=== PATIENT | male | born 1945 | race Caucasian/White ===

== ENCOUNTER → 2023-12-19 14:57 | Outpatient (REF) | payer OTHER, SELFPAY ==
[2023-12-19 16:29] LABS: % Basophils 0.7 % (0-2); % Eosinophils 1.8 % (0-6); % Immature Granulocytes 0.2 % (0-0.5); % Lymphocytes 14.7 % (20.5-51.1); % Monocytes 7.3 % (1.7-9.3); % Neutrophils 75.3 % (42.2-75.2); Absolute Basophils 0.1 10^3/uL (0-0.2); Absolute Eosinophils 0.2 10^3/uL (0-0.7); Absolute Lymphocytes 1.2 10^3/uL (1.2-3.4); Absolute Monocytes 0.6 10^3/uL (0.1-0.6); Absolute Neutrophils 6.3 10^3/uL (1.4-6.5); Hematocrit 45.4 % (39.0-52.0); Hemoglobin 14.9 g/dL (13.0-18.0); Mean Corp Hgb Conc. 32.8 g/dL (33.0-37.0); Mean Corpuscular Hgb 29.9 pg (27.0-31.0); Mean Platelet Volume 10.4 fL (7.4-10.4); Nucleated Red Blood Cells % 0 % (-); Platelet Count 267 10^3/uL (130-400); Red Blood Cell Count 4.99 10^6/uL (4.70-6.10); Red Cell Dist. Width 13.7 % (11.5-14.5); White Blood Cell Count 8.3 10^3/uL (4.8-10.8)
[2023-12-19 16:45] LABS: Blood Urea Nitrogen 20 mg/dl (9-20); Calcium 9.4 mg/dl (8.4-10.2); Carbon Dioxide 26 mmol/L (22-30); Chloride 105 mmol/L (98-107); Glucose 90 mg/dl (70-99); Potassium 4.7 mmol/L (3.5-5.1); Sodium 136 mmol/L (135-145); eGFR > 60.00
[2023-12-19 16:49] LABS: NT-proBNP 2400 pg/ml
== END ==
LOC: REG 14:57
PROVIDERS: ATTENDING PHYSICIAN Internal Medicine
DX: R06.02 Shortness of breath (principal)
CPT/HCPCS: 36415; 71046; 80048; 83880; 85025

== ENCOUNTER 2023-12-19 20:02 | Inpatient (IN) | payer OTHER, SELFPAY ==
[2023-12-19 17:41] VITALS: BP 191/105
--- NOTE | 2023-12-19 18:38 | ED.GENMED ---
History of Present Illness
General
Chief Complaint: Breathing Problem
Source: patient
Exam Limitations: none
Time Seen by Provider: 12/19/23 18:26
Travel History
Have you had any contact with someone who has COVID-19?: No
Do you have any symptoms of coronavirus? Fever > 100 degrees, chills, cough, shortness of breath, sore throat, loss of taste or smell, muscle aches, or headache?: No
History of Present Illness
History of Present Illness:
This is a 78 year old male that comes in with c/o SOB. States that he had had difficulty breathing when he lays down at night. State that this has been going on for the past couple of weeks. States that today he went to see the PCP and he had an ECG
and he sent him for a chest x-ray. States that he has no had a cough but he keeps clearing his throat. States that he was called and told to come to the ER as he had pleural effusion. States that he has been SOB but not to bad during the day.
States that his was here on The 01 of December and she . States that she had a bacterial infection. Patient also went to on Tuesday and he was told that they saw something in the left ear and his nose so he was place on Augmentin.
Denies any fever, chills, chest pain, abd pain, nausea, vomiting, diarrhea, headache, dizziness, urinary burning.
Past History
Past History
ED Past Medical History: Negative Asthma, HTN, Hypercholesterolemia or NIDDM
ED Past Surgical History: None
Social History
Tobacco: Former smoker
Alcohol: Daily (Wine or Martini one daily)
Personal:
Living: alone
Review of Systems
Review of Systems
All Other Systems: ROS reviewed and negative except as documented in HPI and ROS
Constitutional: Reports no symptoms; Denies fever or chills
EENT: Reports no symptoms
Respiratory: Reports trouble breathing; Denies cough
Cardiac: Reports no symptoms; Denies chest pain
ABD/GI: Reports no symptoms; Denies abdominal pain, nausea, vomiting or diarrhea
: Reports no symptoms; Denies dysuria, frequency or urgency
Musculoskeletal: Reports no symptoms
Skin: Reports no symptoms
Neurological: Denies dizzy or headache
Psychiatric: Reports no symptoms
Phy Exam
General Physical Exam
General Presentation: no apparent distress
General age: appears stated age
General Skin: warm and dry
General Habitus: elderly
General Mental: alert
General Hydration: appears well hydrated
ENT Exam
ENT Exam: TM's normal, pharynx normal and neck supple
Eye Exam
Eye Exam: EOMI
Cardiovascular Exam
Cardiovascular Exam: regular rate/rhythm, no edema and normal peripheral pulses
Pulmonary Exam
Pulmonary Exam: no respiratory distress, no rales, chest non tender, no crackles, no rhonchi, no wheezing, no cough and decreased breath sounds (Left lower lung)
Gastrointestinal Exam
Gastrointestinal Exam: normal bowel sounds, non tender, soft, no organomegaly, no pulsatile mass and non distended
Musculoskeletal Exam
Musculoskeletal Exam: full ROM and edema (Left leg slightly larger then right)
Skin Exam
Skin Exam: normal color, warm/dry, no rash, no petechia and other (Old contusion noted on the medial aspect of the left thigh)
Psychiatric Exam
Psychiatric Exam: normal mood/affect
Scores
Heart Failure Risk
Heart Failure Risk Score: Yes
History of Stroke or TIA: No
History of intubation for respiratory distress: No
Heart rate on ED arrival >/= 110: No
SaO2 <90% on arrival on room air: No
HR >/=110 during 3min walk test (or too ill to perform test): Yes
ECG has acute ischemic changes: No
Urea >/=12mmol/L (BUN 33.6mg/dL): No
Serum CO2>/=35mmol/L: No
Troponin I or T elevated to OK Level (0.4mg/dL): Yes
NT-proBNP >/=5,000ng/L (5,000pg/ml): No
HF Risk Score: 4
Admission Status: HIGH RISK 26.1% Consider SNF treatment or admission to hospital
Course
Orders/Labs/Results
Orders:
Orders
12/19/23 Breakfast
Cholesterol Lowering
At Your Request: Full Participation
Cholesterol Lowering: Sodium, 2 Gram
12/19/23 17:46
Electrocardiogram (*1) Urgent
Reason for Study: Shortness of Breath
EKG- Treatment ONCE
12/19/23 18:39
US Periph Venous LOWER Ext LT Urgent
Comment:
Reason For Exam: Swelling
12/19/23 18:47
Complete Blood Count/With Diff Urgent
Comprehensive Metabolic Panel Urgent
Prothrombin Time Urgent
12/19/23 19:38
Furosemide [Lasix] 20 mg IV NOW STA
12/19/23 19:46
Admit/Transfer Patient As Directed
Co-Sign Provider:
Level of Care: Inpatient admission
Assign to:: Telemetry
Physician / Group: [email or web address]
Diagnosis: dyspnes, b/l pleural effusion, suspect acute HF unknown type, HTN
Reason for Telemetry: Acute Heart Failure
Date to Stop Telemetry: 12/22/23
Time to Stop Telemetry: 11:00
Reason for Hospitalization: dyspnes, b/l pleural effusion, suspect acute HF unknown type, HTN
Expected length of stay greater than two midnights?: Yes
ELOS- Estimated Length of Stay in days: 3
I certify the patient meets the requirements for IP care: Yes
12/19/23 19:47
Code Status As Directed
Resuscitation Status: Full Code
12/19/23 19:52
COVID-19 Antigen Routine
Source: Nasal Swab
Procalcitonin Routine
PCT Algorithmm Indication: Respiratory
Troponin I Urgent
12/19/23 22:40
HydrALAZINE [Apresoline] 10 mg IV Q4HPRN PRN
12/19/23 22:40
HF DIETARY CONSULT Routine
HF EDUCATOR CONSULT Routine
Comment:
Activity As Directed
Activity Level: With Assistance
Intake/ Output As Directed
Frequency: Per unit guidelines
Patient Education As Directed
Type: CHF folder
Comment: give on admission. Document in Interdisciplinary Education record
Sleep Apnea Assessment by RN As Directed
Comment:
Physician Instructions:
Vital Signs As Directed
Frequency: Other
Additional Instructions:: Q12 or per unit guidelines if more frequent.
Weight As Directed
Frequency: Daily
Type of Scale: Standing Scale
Comment: Daily morning weight. If unable to stand, use balanced bed scale.
Weight As Directed
Frequency: Once
Type of Scale: Standing Scale
Comment: Upon Admission. If unable to stand, use balanced bed scale.
Pulse Ox/cont/shift [RESP] Routine
Quantity: 1
Special Instructions: Daily pulse oximetry at rest. If greater than 92% at rest also obtain pulse oximetry
while ambulating as tolerated.
DX Deep Vein Thrombosis Video Routine
12/19/23 22:57
Troponin I Q6H
Comment: at admission & every 6 hours x 2 (3 total), ECG to be done with each level
12/20/23 04:40
Troponin I Q6H
Comment: at admission & every 6 hours x 2 (3 total), ECG to be done with each level
12/20/23 06:00
Echo 2D MMode Color/Doppler IN AM
Reason for Study: clinical acute HF
Basic Metabolic Panel IN AM
Cardiovascular Evaluation IN AM
Complete Blood Count/No Diff IN AM
TSH Reflex To Free T4 IN AM
12/20/23 08:00
Furosemide [Lasix] 20 mg IV DAILY
12/20/23 10:40
Troponin I Q6H
Comment: at admission & every 6 hours x 2 (3 total), ECG to be done with each level
12/20/23 18:00
Enoxaparin Sodium [Lovenox] 40 mg SC QPM
12/21/23 06:00
Basic Metabolic Panel IN AM
12/22/23 06:00
Basic Metabolic Panel IN AM
12/22/23 11:00
DC Protocol for Telemetry ONCE
Abnormal Lab Results
12/19/23 12/19/23
18:47 19:52
Absolute Neuts (auto) 7.0 H 10^3/uL
(1.4-6.5)
Lymphocytes % 16.1 L %
(20.5-51.1)
Glucose 101 H mg/dl
(70-99)
Troponin I 0.121 H* ng/ml
12/19/23 18:47
12/19/23 18:47
Glucose nonfasting. PT 14.0 with INR 1.10, Troponin 0.121, Pro-BNP 2400
Vital Signs
Initial and Last Documented VS:
Initial Vital Signs
Temp Pulse Resp BP Pulse Ox
98.1 F 104 20 191/105 97
12/19/23 17:41 12/19/23 17:41 12/19/23 17:41 12/19/23 17:41 12/19/23 17:41
Last Documented Vital Signs
Temp Pulse Resp BP Pulse Ox
97.4 F 94 20 157/94 97
12/19/23 23:45 12/19/23 23:45 12/19/23 23:45 12/19/23 23:45 12/19/23 23:45
MDM/Problems Addressed
Differential Diagnosis Includes:
Pleural efffusion
MDM/Problems Addressed:
This is a 78 year old male that comes in with c/o SOB. States that he had SOB when he lays down at night so his PCP did a Chest X-ray today. Patient was called and told to come to the ER as he had a pleural effusion.
Will get labs, Chest X-ray and admit.
Back into see patient. Explained that he will be admitted. Patient has a Moderate size pleural effusion on the left and right base. Patient is tachycardic. Hospitalist notified.
Chronic conditions affecting care:
NA
Acute Exacerbation and/or Progression of Chronic Illness:
NA
*Radiology
Radiology exam reviewed: radiology read reviewed (Out patient chest- Moderate left pleural effusion. minimal right pleural effusion us= NO SONOGRAPHIC EVIDENCE FOR LEFT LOWER EXTREMITY DEEP VENOUS THROMBOSIS. )
*Critical Care Note
Total Time (30-74mins, 75-104mins- exclusive of procedures): Not Applicable
ED Attending Note
-
Portions of this chart may have been created with voice recognition software.� Occasional wrong word or��sound alike� substitutions may have occurred due to the inherent limitations of voice recognition software.
Discharge Plan
Departure
Patient Disposition: Admit
Date of Disposition: 12/19/23
Time of Disposition: 21:24
Admit to: Telemetry
Presentation/result/management discussed w/ accepting MD/DO: Hospitalist
Patient with high blood pressure during this ER visit?: Yes
Condition: Good
Covid-19: Negative COVID-19
Discharge Problem:
Bilateral pleural effusion, Elevated troponin
Interventions
Interventions:
*Risk Screen - Suicide Last Done: 12/19/23 17:44
*General Assessment Last Done: 12/19/23 17:44
*Neglect/Abuse Screening Last Done: 12/19/23 17:44
ED- Fall Risk Assessment Last Done: 12/19/23 19:47
*ED COVID-19 Vaccine History Last Done: 12/19/23 19:47
*Nursing Disposition Last Done: 12/19/23 22:59
ED- Cardiac Assessment Last Done: 12/19/23 19:47
ED- Pulmonary Assessment Last Done: 12/19/23 19:47
Discharge Date and Time
Discharge Date/Time: 12/19/23 23:00
[2023-12-19 19:29] LABS: % Basophils 0.4 % (0-2); % Eosinophils 2.2 % (0-6); % Immature Granulocytes 0.3 % (0-0.5); % Lymphocytes 16.1 % (20.5-51.1); % Monocytes 6.7 % (1.7-9.3); % Neutrophils 74.3 % (42.2-75.2); Absolute Eosinophils 0.2 10^3/uL (0-0.7); Absolute Lymphocytes 1.5 10^3/uL (1.2-3.4); Absolute Monocytes 0.6 10^3/uL (0.1-0.6); Hematocrit 42.8 % (39.0-52.0); Hemoglobin 14.6 g/dL (13.0-18.0); Mean Corp Hgb Conc. 34.1 g/dL (33.0-37.0); Mean Corpuscular Volume 88.1 fL (80.0-94.0); Nucleated Red Blood Cells % 0 % (-); Platelet Count 265 10^3/uL (130-400); Red Blood Cell Count 4.86 10^6/uL (4.70-6.10); Red Cell Dist. Width 13.5 % (11.5-14.5); White Blood Cell Count 9.4 10^3/uL (4.8-10.8)
[2023-12-19 19:39] LABS: ALT (SGPT) 32 U/L (0-50); AST (SGOT) 32 U/L (17-59); Albumin 4.6 g/dl (3.5-5.0); Alkaline Phosphatase 74 U/L (38-126); Blood Urea Nitrogen 20 mg/dl (9-20); Calcium 9.8 mg/dl (8.4-10.2); Carbon Dioxide 25 mmol/L (22-30); Chloride 102 mmol/L (98-107); Glucose 101 mg/dl (70-99); Potassium 4.2 mmol/L (3.5-5.1); Sodium 138 mmol/L (135-145); Total Protein 7.4 g/dl (6.3-8.2); eGFR > 60.00
--- NOTE | 2023-12-19 19:40 | HPS.HSE ---
Family Physician
-
Family Physician: Dina Spears PA-C
Chief Complaint
-
sob
History of Present Illness
78M No prior PMH, daily a glass of Martini ETOH use, remote HX smoking pw SoB especially at night when he lies onhis side as the way he usally sleep for last few weeks. Denied cough. Recent PNA. Dened recent Travel. Denied B/L Ted swelling but
reports had Lt Ted strain and slight swelling. No prio HX DVT or PE.
Eval at [facility] on last Tuesday ?? ear infection and took 2 doses of Augmentin and stopped
PCP ordered CXR and noted b/l pleural effusion -sent ER
Today NEG home Covid test
Denied Wt loss
Denied loss appetite
ROS
Denied cough
Denies any fever, chills, chest pain, abd pain, nausea, vomiting, diarrhea, headache, dizziness, urinary burning.
Medical History
Past Medical History
Past Medical History: Reports Other (BPH on Fenesteride )
Past Surgical History: Reports None
Social History
Tobacco: Former Smoker (50 yrs ago )
Alcohol: Daily (a aglass of Martini )
Family History
Family History: Not pertinent
Allergies / Home Medications
Allergies reflects when Allergies were last updated in [facility].
Home Medications with original date entered in [facility]
Allergy/Medication List:
Allergies
Allergy/AdvReac Type Severity Reaction Status Date / Time
No Known Allergies Allergy Unverified 12/19/23 17:41
If medication reconciliation has not been performed, why?: Other (Pending Rx reconcilliation )
Review of Systems
-
Constitutional: Reports No Symptoms
EENT: Reports No Symptoms
Respiratory: Reports Trouble Breathing
Cardiac: Reports No Symptoms
Abdomen/GI: Reports No Symptoms
: Reports No Symptoms
Musculoskeletal: Reports No Symptoms
Skin: Reports No Symptoms
Neurological: Reports No Symptoms
Endocrine: Reports No Symptoms
Hematologic/Lymphatic: Reports No Symptoms
Psych: Reports No Symptoms
Physical Exam
Vital Signs
Vital Signs
Temp Pulse Resp BP Pulse Ox
98.1 F 104 20 191/105 97
12/19/23 17:41 12/19/23 17:41 12/19/23 17:41 12/19/23 17:41 12/19/23 17:41
Physical Exam
General: Well Developed, Well Nourished, Comfortable and Conversant
HEENT: NormoCephalic and Moist mucous membranes
Cardiac: S1/S2, Regular Rhythm and Murmur (soft SM at LUSB )
Breast: Deferred by me
GI: Soft, Non Tender and Non Distended
Rectal: Deferred by Provider
Genito-urinary: Deferred by me
Musculoskeletal: Edema, Left Lower Extremity (trace edema Lt >Rt )
Skin: Warm; No Rash
Neuro: AO x 3, Nonfocal/grossly intact and Other (Resting tremors at Rt UEx )
Laboratory Results
-
12/19/23 18:47
12/19/23 18:47
Laboratory Results
Total Bilirubin 1.0 mg/dl (0.2-1.3) 12/19/23 18:47
AST 32 U/L (17-59) 12/19/23 18:47
ALT 32 U/L (0-50) 12/19/23 18:47
Alkaline Phosphatase 74 U/L (38-126) 12/19/23 18:47
Impression/Plan
-
Data
WCC 8.3 Hgb 14.3 Plt 267
Na 136 K 4.7 CO2 26 Cr 0.9 eGFR > 60
Pending LFTs
pBNP 2400
TED US pending
12/19/23 OP CXR
Moderate left pleural effusion.
Minimal right pleural effusion
EKG report
SINUS TACHYCARDIA
RIGHT BUNDLE BRANCH BLOCK
SEPTAL INFARCT , AGE UNDETERMINED
ABNORMAL ECG
NO PREVIOUS ECGS AVAILABLE
Last hospitalist admission: NIL. No prior admission to
ASSESSMENT & PLAN
Evaluating in progress for acute HF type unknown - ? LV systolic dysfunction ? NI CM
SoB and orthopnea for 3-4 weeks
CXR POS for pleural effusion ( Mod on Lt, minimal on Rt) - suspect symtomatic - uncertaion etiolgy
NEG Covid by home test today
- check Covid Ag at ER
- nl WCC
- check PCT
- check TPNI
- IV Lasix 20 daily
- ECHO
- CBC Card consult
Systolic HTN noted - undiagnosed primary HTN vs. Anxiety
- add IV Hydralazine PRN
- Observe BP
Daily ETOH use
- MSAS
Lt Leg pain and slight swelling
- await Leg US to eval DVT
BPH on Finasteride
Resting tremors at Rt UEx
- to consider OP neuro eval for PKDs?
DVT Px: LMWH
Code: Full
IP TLM
[2023-12-19 19:48] VITALS: BP 174/79
[2023-12-19] MEDS: LASIX 20 MG IV (20:31)
[2023-12-19 20:48] VITALS: BP 127/68
[2023-12-19 20:59] LABS: COVID-19 Antigen Negative (Negative)
[2023-12-19 21:13] LABS: Troponin I 0.121 ng/ml
[2023-12-19 21:15] LABS: Procalcitonin < 0.05 ng/ml (0.0-0.25)
[2023-12-19 21:48] VITALS: BP 126/72
[2023-12-19 23:15] LABS: GGTP 31 U/L (15-73)
[2023-12-19] MEDS: PROSCAR 5 MG PO (23:16)
[2023-12-19 23:45] VITALS: BP 157/94
[2023-12-20 00:44] VITALS: BMI 28.3
[2023-12-20 03:26] VITALS: BP 142/86
[2023-12-20 04:22] LABS: Hematocrit 41.2 % (39.0-52.0); Hemoglobin 13.8 g/dL (13.0-18.0); Mean Corp Hgb Conc. 33.5 g/dL (33.0-37.0); Mean Corpuscular Hgb 30.2 pg (27.0-31.0); Mean Corpuscular Volume 90.2 fL (80.0-94.0); Mean Platelet Volume 9.9 fL (7.4-10.4); Platelet Count 254 10^3/uL (130-400); Red Blood Cell Count 4.57 10^6/uL (4.70-6.10); Red Cell Dist. Width 13.5 % (11.5-14.5); White Blood Cell Count 8.8 10^3/uL (4.8-10.8)
[2023-12-20 04:47] LABS: Blood Urea Nitrogen 23 mg/dl (9-20); Calcium 9.2 mg/dl (8.4-10.2); Carbon Dioxide 26 mmol/L (22-30); Chloride 103 mmol/L (98-107); Estimated Creatinine Clearance 56 ml/min; Glucose 113 mg/dl (70-99); HDL Cholesterol 58 mg/dl; LDL Cholesterol, Calculated 86 mg/dl; Potassium 3.9 mmol/L (3.5-5.1); Sodium 139 mmol/L (135-145); Total Cholesterol 167 mg/dl (50-199); Triglyceride 116 mg/dl (10-149); Very Low Density Lipoprotein 23 mg/dl (0-30); eGFR > 60.00
[2023-12-20 05:16] LABS: TSH Reflex To Free T4 3.51 uIU/ml (0.47-4.68)
[2023-12-20 05:37] LABS: Troponin I 0.167 ng/ml
[2023-12-20 06:00] VITALS: BMI 28.2
[2023-12-20 07:20] VITALS: BP 138/92
[2023-12-20] MEDS: THIAMINE INJECTION 200 MG IV ×2 (08:14→20:09)
[2023-12-20] MEDS: LASIX 20 MG IV ×2 (08:14→16:33)
[2023-12-20] MEDS: FOLVITE 1 MG PO (08:14)
--- NOTE | 2023-12-20 08:35 | W.PN.HOSP.TC ---
Today's Communication/Plan
-
see plan
Assessment / Plan
Assessment / Plan
Mr. Cornell Davis is a 78 yo man with hx BPH, daily alcohol use (1 Martini), former smoker presents to the ER with shortness of breath when lays down at night with outpatient chest x-ray showing pleural effusions.
CXR
IMPRESSION:
Moderate left pleural effusion
Minimal right pleural effusion
LE US
IMPRESSION:
No sonographic evidence for left lower extremity deep venous thrombosis.
Acute heart failure, unknown type
SoB and orthopnea for 3-4 weeks
CXR POS for pleural effusion ( Mod on Lt, minimal on Rt)
-symptoms coincide with sudden loss of ; Takotsubo on differential
- ordered for lasix 20mg IV BID
- TTE
- low salt diet, strict I/O
- TSH 3.51
- CBC Card consult appreciated
Troponin elevated, likely non-MA
-start aspirin
-trend Trop
Systolic HTN noted - undiagnosed primary HTN vs. Anxiety
- add IV Hydralazine PRN
- Observe BP
Daily ETOH use
- MSAS
Lt Leg pain and slight swelling
-no e/o DVT
BPH on Finasteride
Resting tremors at Rt UEx�
- to consider OP neuro eval for PKDs?
DVT Px: LMWH
Code: Full
IP TLM
Anticipated Discharge: 24 - 48 hours
Subjective/Interval History
-
Date of Service: December 20, 2023
breathing is better when laying down
no chest pain
urinating frequently
Objective Data
-
Labs:
Laboratory Results
12/20/23
04:08
WBC 8.8
Hgb 13.8
Hct 41.2
Plt Count 254
Sodium 139
Potassium 3.9
Chloride 103
Carbon Dioxide 26
BUN 23 H
Creatinine 0.9
Glucose 113 H
Calcium 9.2
Vital Signs:
Vital Signs
Temp Pulse Resp BP Pulse Ox
97.8 F 89 17 138/92 95
12/20/23 07:20 12/20/23 07:20 12/20/23 07:20 12/20/23 07:20 12/20/23 07:20
I&O
12/19/23 12/20/23 12/21/23
06:59 06:59 06:59
Output Total 300 / 300
Balance -300 / -300
Review of Systems
-
History Source: Patient
All other systems: Reviewed and negative
Physical Exam
-
General: No Apparent Distress
HEENT: PERRLA
Respiratory: Clear to Auscultation
Cardiac: S1/S2
GI: Soft and Nontender
Musculoskeletal: No Edema
Skin: Warm and Dry; Negative Rash
Neuro: AO x 3
Psych: Calm
Data Reviewed
-
Diagnostic Radiology: Report Reviewed by me
Labs: Labs Reviewed by me
--- NOTE | 2023-12-20 08:42 | CON.CAR ---
Addendum entered and electronically signed by Abdelrahman Garber MD 12/20/23 13:37:
I saw and examined the patient.
The FAMILY AND CONSUMER SCIENCES PROFESSOR's note was reviewed and I agree with the note.
Comment: His symptoms are c/w orthopnea. His echo shows mild , mod MR, no evidence of septal HI. PA pressure could not be estimated. pBNP c/w heart failure. CXR just a bit unusual with L>R effusion.
Suspect he has acute HFpEF, first presentation.
In addition to diuresis he will we add MRA (aldactone) and an SGLT inhibitior (Farxiga). Later can consider adding ARNI. Education also will be added with low Na+ diet and fluid restriction.
Case Management (appreciate their help): Jardiance/Farxiga/Entresto all $47/30 days retail or $94/90 days mail order.
Will need BMP in 1 and 3 weeks and monthly for 2-3 months and then q3 months.
A CXR in 2-3 weeks makes sense to make sure effusion resolves and confirm he does not need additional evaluation of that.
Original Note:
Consultation
Consultation Request
Date/Time Consultation Requested: 12/19/23 22:30
Date/Time Consultation Performed: 12/20/23 08:20
Requesting Provider: Dr. Simons
Performing Provider: MARGIE Tran for Dr. Garber
Reason for Consultation: New acute heart failure
Medical History
-
Chief Complaint: Shortness of breath
History of Present Illness:
Cornell Davis is a 78-year-old male recently with BPH and former smoker (cessation in his 20s) who presented to the emergency department with shortness of breath. His shortness of breath started approximately 2 weeks ago. It is most
noticeable when he lies down at bed at night. He thought this was because he could pay attention to it. He believes it was related to anxiety. On December 01 he came to the emergency department with his . Unfortunately, she was acutely ill and
did not survive. He thought his shortness of breath at night was related to anxiety regarding the loss of his . He is not having any chest pain. He denies associated dizziness, diaphoresis, and nausea. He was found to have an abnormal
troponin, elevated proBNP, and pleural effusions on his chest x-ray.
Past Medical History
Past Medical History: Other (RBBB, BPH)
Past Surgical History: Tonsilectomy
Social History
Tobacco: Former Smoker
Alcohol: Daily (1 martini daily)
Drug: None
Personal: (Sudden. Within the last month.)
Living: Alone
Employment: Retired
Family History
Family History: Reviewed & Not Pertinent
Allergies / Home Medications
Allergy/AdvReac Type Severity Reaction Status Date / Time
No Known Allergies Allergy Unverified 12/19/23 17:41
Medication Instructions Recorded Confirmed Type
amoxicillin 875 mg-potassium 1 tab PO Q12H 12/19/23 12/19/23 History
clavulanate 125 mg tablet
finasteride 5 mg tablet 5 mg PO QPM 12/19/23 12/19/23 History
iodine (kelp) 0.15 mg tablet (Kelp) 0.15 mcg PO BID 12/19/23 12/19/23 History
multivitamin 1 tab PO DAILY 12/19/23 12/19/23 History
omega 4-loc-xcv-fish oil 1,000 mg 1 cap PO BID 12/19/23 12/19/23 History
(120 mg-180 mg) capsule (Fish Oil)
saw palmetto 500 mg capsule 500 mg PO BID 12/19/23 12/19/23 History
vit C 250 mg-vit E 90 mg-zinc 40 1 tab PO BID 12/19/23 12/19/23 History
mg-copper 1 bd-arykyu-uxtjma
capsule (PreserVision AREDS-2)
Review of Systems
-
History Source: Patient
All other systems: Negative unless noted
EENT: No Symptoms
Respiratory: Trouble Breathing
Cardiac: Other (PND, orthopnea)
Abdomen/GI: No Symptoms
Physical Exam
Vital Signs
Temp Pulse Resp BP Pulse Ox
97.8 F 89 17 138/92 95
12/20/23 07:20 12/20/23 07:20 12/20/23 07:20 12/20/23 07:20 12/20/23 07:20
Lab Results
12/20/23 04:08
12/20/23 04:08
Troponin I 0.167 ng/ml H* D 12/20/23 04:08
Physical Exam
General: Well Developed, Well Nourished, No Apparent Distress and Comfortable
HEENT: Normocephalic, Anicteric and Moist Mucous Membranes
Respiratory: Clear and Non Labored Respirations
Cardiac: S1/S2 and Regular Rhythm; Negative Peripheral Edema
Breast: Deferred by me
GI: Soft, Non Tender, Non Distended and Normal Bowel Sounds
Rectal: Deferred by Provider
Genito-urinary: No Costovertebral Tender
Musculoskeletal: No Clubbing, No Cyanosis and No Edema
Skin: Warm and Dry
Neuro: AO x 3
Hematologic/Lymphatic: No Lymphadenopathy
Psych: Calm
Impression / Plan
-
Heart failure, type unknown, acute/severe (required hospitalization)
-PND and orthopnea on exam
-Diuresis with furosemide 20 mg IV BID
-Moderate left pleural effusion and minimal right pleural effusion
-TTE, concern for Takotsubo given the recent loss of his
-HF education
-Trend BMP, I/Os, and daily weight with diuresis
-Case Mgmt to fabian SGLT, will start if not cost prohibitive
-Anticipate starting MRA
Abnormal troponin
-Peak currently 0.167, trend
-Trend EKG
HTN, new
-Denies history of HTN
-Will likely start medical therapy after TTE
Former smoker, continued cessation recommended
BPH
Data Reviewed
-
EKG: Report Reviewed by me (Sinus tachycardia, right bundle branch block, rate 102)
Radiology: Report Reviewed by me (CXR: Moderate left pleural effusion. Minimal right pleural effusion)
Ultrasound: Report Reviewed by me (B/L LE: No sonographic evidence for left lower extremity deep venous thrombosis.)
Labs: Labs Reviewed by me
[2023-12-20] MEDS: LOW STRENGTH ASPIRIN 162 MG PO (10:40)
[2023-12-20] MEDS: KCL 20 MEQ PO (10:41)
[2023-12-20 11:30] VITALS: BP 134/82
[2023-12-20 11:42] LABS: Troponin I 0.117 ng/ml
--- NOTE | 2023-12-20 12:20 | CM ---
CM met with pt bedside
Pt recently earlier this month
Resides alone in a 1SH with 1 NINA
Notes independence without any ADs
Has a SPC and WW for use if needed
Denies hx with VN/SNF
PCP- Dina Spears
Rx- [facility]
CM consulted for D/A- pt notes daily cocktail
Declined [facility]
CM also consulted for med pricing
Call with [facility]
Jardiance/Farxiga/Entresto all $47/30 days retail or $94/90 days mail order
Update to Marcia/cardio TT
CM observed pt ambulatory and independent throughout room without AD
No dc needs anticipated
Discharge Disposition- home, no needs anticipated- dtr will transport home
[2023-12-20 15:35] VITALS: BP 139/94
[2023-12-20] MEDS: PROSCAR 5 MG PO (17:59)
[2023-12-20] MEDS: LOVENOX 40 MG SC (17:59)
[2023-12-20 19:35] VITALS: BP 135/75
[2023-12-20 23:50] VITALS: BP 133/81
[2023-12-21 03:55] VITALS: BP 119/76
[2023-12-21 06:00] VITALS: BMI 27.5
[2023-12-21 06:15] LABS: Blood Urea Nitrogen 24 mg/dl (9-20); Calcium 9.4 mg/dl (8.4-10.2); Carbon Dioxide 25 mmol/L (22-30); Chloride 102 mmol/L (98-107); Estimated Creatinine Clearance 56 ml/min; Glucose 111 mg/dl (70-99); Potassium 3.9 mmol/L (3.5-5.1); Sodium 138 mmol/L (135-145); eGFR > 60.00
[2023-12-21 07:00] VITALS: BP 134/85
[2023-12-21] MEDS: FARXIGA 10 MG PO (08:35)
[2023-12-21] MEDS: FOLVITE 1 MG PO (08:36)
[2023-12-21] MEDS: LASIX 20 MG IV (08:36)
[2023-12-21] MEDS: ALDACTONE 12.5 MG PO (08:36)
[2023-12-21] MEDS: THIAMINE INJECTION 200 MG IV (08:36)
--- NOTE | 2023-12-21 09:22 | W.PN.CD ---
Today's Communication / Plan
-
OK for home from cardiac perspective
Home on Lasix 20 a day, Farxiga 10 a day, Aldactone 12.5 a day
Later can consider adding ARNI (for HF and HTN)
Will need BMP in 1 and 3 weeks and monthly for 2-3 months and then q3 months
F/u CXR in 2-4 weeks
Can consider outpatient stress test
Impression / Plan
-
Heart failure, acute HFpEF
- Improved
- Home on Lasix 20 a day, Farxiga 10 a day, Aldactone 12.5 a day
- Later can consider adding ARNI.
- Education, low Na+ diet, and fluid restriction.�
- Will need BMP in 1 and 3 weeks and monthly for 2-3 months and then q3 months.
Valvular heart disease
- mild
- mod MR, no evidence of septal KS.�
- PA pressure could not be estimated.
CXR just a bit unusual with L>R effusion.
- F/u CXR in 2-4 weeks
Abnormal troponin
-Peak 0.167
- EKG stable
- Most c/w nonischemic myocardial injury from heart failure
- Can consider outpatient stress test
HTN, new
-Will see on Aldactone and Lasix
-Good candidate to add ARNI or ARB next as outpatient
Former smoker, continued cessation recommended
BPH
Case Management Assistance:
- Jardiance/Farxiga/Entresto all $47/30 days retail or $94/90 days mail order
Subjective:
No PND last night!!
Physical Exam
Vital Signs/Labs
Vital Signs
Temp Pulse Resp BP Pulse Ox
97.5 F 79 16 134/85 94
12/21/23 07:00 12/21/23 07:00 12/21/23 07:00 12/21/23 07:00 12/21/23 07:00
12/20/23 12/21/23 12/22/23
06:59 06:59 06:59
Actual Weight 74.559 kg 72.529 kg
12/20/23 04:08
12/21/23 05:14
PT 14.0 Sec (11.4-14.6) 12/19/23 18:47
INR 1.10 12/19/23 18:47
Triglycerides 116 mg/dl (10-149) 12/20/23 04:08
LDL Cholesterol, Calc 86 mg/dl 12/20/23 04:08
VLDL Cholesterol, Calc 23 mg/dl (0-30) 12/20/23 04:08
HDL Cholesterol 58 mg/dl 12/20/23 04:08
LAB Results
12/19/23 12/19/23 12/20/23
19:52 22:57 04:08
Troponin I 0.121 H* 0.130 H* 0.167 H* D
12/20/23
11:08
Troponin I 0.117 H* D
Physical Exam
Constitutional: No acute distress
EENT: Anicteric
Cardiovascular: Rhythm & rate is regular, Pedal edema is absent and Rub absent
Respiratory: Respiratory effort normal and Lungs clear to auscul. (still decreased at bases)
GI: Soft and Distention absent
Neuro/Psych: AO x 3
Data Reviewed
-
Date of Service: December 21, 2023
--- NOTE | 2023-12-21 10:04 | W.PN.HOSP.TC ---
Today's Communication/Plan
-
OK for DC today
Assessment / Plan
Assessment / Plan
Mr. Cornell Davis is a 78 yo man with hx BPH, daily alcohol use (1 Martini), former smoker presents to the ER with shortness of breath when lays down at night with outpatient chest x-ray showing pleural effusions.
CXR
IMPRESSION:
Moderate left pleural effusion
Minimal right pleural effusion
LE US
IMPRESSION:
No sonographic evidence for left lower extremity deep venous thrombosis.
TTE
CONCLUSIONS
�Normal biventricular size and systolic function without regional wall motion
�abnormality.
�Mild concentric left ventricular hypertrophy.
�Stage III diastolic dysfunction suggestive of restrictive filling pattern and
�increased filling pressures.
�Moderate mitral regurgitation.
�Mild aortic stenosis.
�Right heart pressures could not be determined.
�No prior study available for comparison.
Acute heart failure, unknown type
SoB and orthopnea for 3-4 weeks
CXR POS for pleural effusion ( Mod on Lt, minimal on Rt)
- s/p diuresis with improvement in symptoms, weight 72.5kg
- TTE results above - nl EF
- low salt diet, strict I/O
- TSH 3.51
- CBC Card consult appreciated
-OK for DC today on �Lasix 20 a day, Farxiga 10 a day, Aldactone 12.5 a day
Troponin elevated, likely non-IA
-consider outpatient stress test
Systolic HTN noted
-aldactone initiated as above
Daily ETOH use
- MSAS
Lt Leg pain and slight swelling
-no e/o DVT
BPH on Finasteride
Resting tremors at Rt UEx�
- to consider OP neuro eval for PKDs?
F/U with PCP
DVT Px: LMWH
Code: Full
IP TLM
Anticipated Discharge: Today
Subjective/Interval History
-
Date of Service: December 21, 2023
feels well and ready to go home
Objective Data
-
Labs:
Laboratory Results
12/21/23
05:14
Sodium 138
Potassium 3.9
Chloride 102
Carbon Dioxide 25
BUN 24 H
Creatinine 0.9
Glucose 111 H
Calcium 9.4
Vital Signs:
Vital Signs
Temp Pulse Resp BP Pulse Ox
97.5 F 79 16 134/85 94
12/21/23 07:00 12/21/23 07:00 12/21/23 07:00 12/21/23 07:00 12/21/23 07:00
I&O
12/20/23 12/21/23 12/22/23
06:59 06:59 06:59
Intake Total 1380 / 1380
Output Total 300 / 300 2900 / 2900
Balance -300 / -300 -1520 / -1520
Review of Systems
-
History Source: Patient
All other systems: Reviewed and negative
Physical Exam
-
General: No Apparent Distress
HEENT: PERRLA
Respiratory: Clear to Auscultation
Cardiac: S1/S2
GI: Soft and Nontender
Musculoskeletal: No Edema
Skin: Warm and Dry; Negative Rash
Neuro: AO x 3
Psych: Calm
Data Reviewed
-
Diagnostic Radiology: Report Reviewed by me
Labs: Labs Reviewed by me
--- NOTE | 2023-12-21 10:17 | W.DS.TRANS ---
DC Summary - [employer]
-
Discharge Instructions:
Discharge Diagnosis/Procedures heart failure preserved ejection fraction
Diet 2 Gram Sodium,Restrict fluids to 48 oz
Activity As tolerated
Driving Restrictions As prior to admission
Bathing Restrictions None
Blood Work BMP (bloodwork) in 1 and 3 weeks- lab slip sent
electronically sent to [facility] as discussed
Specialty Instructions Weigh Daily
Instructions: *CBC Heart Failure Instructions
Stand-Alone Forms:
Changes to Home Medications: Yes
Discharge Medications:
DC Medications w/original date entered in [employer]
finasteride 5 mg tablet 5 mg PO QPM Urinary Issue 12/19/23
iodine (kelp) 0.15 mg tablet (Kelp) 0.15 mcg PO BID Supplement 12/19/23
multivitamin 1 tab PO DAILY Supplement 12/19/23
omega 5-cmx-hft-fish oil 1,000 mg (120 mg-180 mg) capsule (Fish Oil) 1 cap PO BID Supplement 12/19/23
saw palmetto 500 mg capsule 500 mg PO BID Supplement 12/19/23
vit C 250 mg-vit E 90 mg-zinc 40 mg-copper 1 mm-hgbpry-czboej capsule (PreserVision AREDS-2) 1 tab PO BID Supplement 12/19/23
dapagliflozin propanediol 10 mg tablet (Farxiga) 10 mg PO DAILY #30 tabs 12/21/23
furosemide 20 mg tablet (Lasix) 20 mg PO DAILY #30 tabs 12/21/23
spironolactone 25 mg tablet 12.5 mg PO DAILY #30 tabs 12/21/23
Home Medication Changes
addition of lasix, spironolactone, Farxiga
Pending Results: No
--- NOTE | 2023-12-21 10:45 | CM ---
MD entered order for discharge.
Spoke with patient he said he wqas ready for dc.
He said either dgt Kenyatta or G Charliet Marisol will drive royce home .
he has a walker at home.
Offered V he declined need.
PLAN Home no needs
[2023-12-21 11:00] VITALS: BP 126/76
[2023-12-21 11:17] VITALS: BMI 27.5
--- NOTE | 2023-12-21 13:55 | W.DCSUMMARY ---
Discharge Summary
Discharge Data
Date of Admission: 12/19/23
Date of Discharge: 12/21/23
-
Pending Results: No
Hospital Course
Discharging Physician : Dr. Katya Doss
Disposition : Home
Primary care physician : Dr. Dina Spears
Principal Discharge diagnosis : Heart failure preserved ejection fraction, acute exacerbation
Hospital Course :
Mr. Cornell Davis is a 78 yo man with hx BPH, daily alcohol use (1 Martini), former smoker presents to the ER with shortness of breath when lays down at night. His unexpectedly passed one month prior and symptoms began around this time.
Triage vitals significant for hypertension. Labs with WBC 9.4, Cr 0.9, K 4.2. CXR with moderate left pleural effusion and minimal right pleural effusion. Clinically patient appeared to be in heart failure. He was admitted to medicine with
cardiology consulting. Symptoms improved with diuresis. TTE with nl systolic function. He is started on lasix 20mg PO QD, Farxiga 10mg PO QD and Spironolactone 12.5mg PO QD. He will get labs in one week and has follow up with cardiology. Weight
on day of discharge was 72.5 kg.
Time spent on discharge was 31 minutes.
Important imaging findings :
CXR 12/19/23
IMPRESSION:
Moderate left pleural effusion
Minimal right pleural effusion
TTE 12/20/23
CONCLUSIONS
Normal biventricular size and systolic function without regional wall motion
abnormality.
Mild concentric left ventricular hypertrophy.
Stage III diastolic dysfunction suggestive of restrictive filling pattern and
increased filling pressures.
Moderate mitral regurgitation.
Mild aortic stenosis.
Right heart pressures could not be determined.
No prior study available for comparison.
Indications:
clinical acute HF
Procedure findings :
Discharge Plan
-
Patient Disposition: Home (Routine Discharge)
Discharge Diagnosis/Procedures: heart failure preserved ejection fraction
Diet: 2 Gram Sodium and Restrict fluids to 48 oz
Activity: As tolerated
Driving Restrictions: As prior to admission
Bathing Restrictions: None
Blood Work: BMP (bloodwork) in 1 and 3 weeks- lab slip sent electronically sent to [facility] as discussed
Specialty Instructions: Weigh Daily- Call MD for wt gain/loss 3 lbs overnight/5 lbs in 1 week
Instructions: *CBC Heart Failure Instructions
Referrals:
Simran Jalloh CRNP [Specified Professional Personl] - 12/23/23 11:20 am (post hospital CHF follow-up cardiology visit)
Dina Spears PA-C [Family Provider] -
Prescriptions:
New
spironolactone 25 mg Tablet
12.5 mg PO DAILY Qty: 30 0RF
dapagliflozin propanediol [Farxiga] 10 mg Tablet
10 mg PO DAILY Qty: 30 0RF
furosemide [Lasix] 20 mg tablet
20 mg PO DAILY Qty: 30 0RF
Continued
multivitamin Tablet
1 tab PO DAILY
Kelp 0.15 mg Tablet
0.15 mcg PO BID
saw palmetto 500 mg Capsule
500 mg PO BID
finasteride 5 mg tablet
5 mg PO QPM
omega 7-sdc-jil-fish oil [Fish Oil] 1,000 mg (120 mg-180 mg) Capsule
1 cap PO BID
PreserVision AREDS-2 250-90-40-1 mg Capsule
1 tab PO BID
Discontinued
amoxicillin-pot clavulanate 875-125 mg tablet
1 tab PO Q12H
Discharge Orders:
Discharge Patient (As Directed); Ordered 12/21/23
Ordered By: Katya Doss
Discharge Date and Time
Discharge Date/Time: 12/21/23 12:44
== END 2023-12-21 12:44 | disposition home or self-care (01) | DRG 291 ==
LOC: 3 WEST ACU 20:02
PROVIDERS: Clinical Nurse Specialist Family Health; ADMITTING PHYSICIAN Internal Medicine; ATTENDING PHYSICIAN Student in an Organized Health Care Education/Training Program; EMERGENCY PHYSICIAN Emergency Medicine; FAMILY PHYSICIAN Physician Assistant Medical; OTHER PHYSICIAN Internal Medicine Cardiovascular Disease; REFERRING PHYSICIAN Internal Medicine
DX: I11.0 Hypertensive heart disease with heart failure (principal); I50.31 Acute diastolic (congestive) heart failure; J90 Pleural effusion, not elsewhere classified; I5A Non-ischemic myocardial injury (non-traumatic); F10.90 Alcohol use, unspecified, uncomplicated; N40.0 Benign prostatic hyperplasia without lower urinary tract symptoms; M79.605 Pain in left leg; I08.0 Rheumatic disorders of both mitral and aortic valves; R25.1 Tremor, unspecified; I45.10 Unspecified right bundle-branch block; Z63.4 Disappearance and death of family member; Z87.891 Personal history of nicotine dependence; Z11.52 Encounter for screening for COVID-19
CPT/HCPCS: 80048; 80053; 80061; 82977; 84145; 84443; 84484; 85025; 85027; 85610; 87811; 93005; 93306; 93971; 99285

== ENCOUNTER → 2024-12-19 12:34 | Outpatient (REF) | payer OTHER, SELFPAY | LOC: RCS 12:34 | PROVIDERS: ATTENDING PHYSICIAN Internal Medicine Cardiovascular Disease; FAMILY PHYSICIAN Physician Assistant Medical | DX: I50.32 Chronic diastolic (congestive) heart failure (principal); I34.0 Nonrheumatic mitral (valve) insufficiency; I35.0 Nonrheumatic aortic (valve) stenosis | CPT/HCPCS: 93306 ==

== ENCOUNTER 2025-06-08 16:12 | Inpatient (IN) | payer OTHER, SELFPAY ==
[2025-06-08 12:53] VITALS: BP 128/74
[2025-06-08 13:14] LABS: Hematocrit 43.1 % (39.0-52.0); Hemoglobin 14.7 g/dL (13.0-18.0); Mean Corp Hgb Conc. 34.1 g/dL (33.0-37.0); Mean Corpuscular Volume 90.7 fL (80.0-94.0); Nucleated Red Blood Cells % 0 % (-); Platelet Count 237 10^3/uL (130-400); Red Cell Dist. Width 13.3 % (11.5-14.5)
[2025-06-08 13:27] LABS: ALT (SGPT) 44 U/L (0-50); AST (SGOT) 37 U/L (17-59); Albumin 4.5 g/dl (3.5-5.0); Alkaline Phosphatase 59 U/L (38-126); Blood Urea Nitrogen 22 mg/dl (9-20); Calcium 9.8 mg/dl (8.4-10.2); Carbon Dioxide 24 mmol/L (22-30); Chloride 106 mmol/L (98-107); Glucose 119 mg/dl (70-99); Potassium 4.7 mmol/L (3.5-5.1); Sodium 137 mmol/L (135-145); Total Protein 7.1 g/dl (6.3-8.2); eGFR > 60.00
[2025-06-08 13:47] LABS: Troponin I 0.132 ng/ml
--- NOTE | 2025-06-08 14:12 | ED.GENMED ---
History of Present Illness
General
Chief Complaint: Breathing Problem
Source: patient, records and family
Exam Limitations: none
Time Seen by Provider: 06/08/25 14:03
Nursing documentation reviewed up to this point in time: agreed with
History of Present Illness
History of Present Illness:
80-year-old male with a past medical history of BPH, aortic stenosis and mitral regurgitation, CHF who presents to the emergency department for evaluation of shortness of breath and orthopnea. Patient reports that for the past week or so he has
been having increased fatigue. He reports 1 to 2 pound weight gain and some increased swelling in his legs. He says that he called his beef skinner (Dr. Garber) to disclose the symptoms and was recommended to increase Lasix�his typical dose has
been 20 mg daily but was told to increase to 20 mg twice daily for a few days. Yesterday took his double dose of Lasix but over the past 24 hours has noticed shortness of breath increasing particularly when he tried to sleep last night was having
significant orthopnea which prompted ER visit today. He did have admission last year with similar presentation and orthopnea was primary symptom. He denies any chest pain. Denies any cough, fevers, chills. He denies any other acute complaints.
Past History
Past History
ED Past Medical History: Negative Asthma, HTN, Hypercholesterolemia or NIDDM
ED Past Surgical History: None
Social History
Tobacco: Former smoker
Alcohol: Daily (Wine or Martini one daily)
Personal:
Living: alone
Review of Systems
Review of Systems
All Other Systems: ROS reviewed and negative except as documented in HPI and ROS
Constitutional: Reports weight gain and fatigue; Denies fever
Respiratory: Reports trouble breathing and other (Orthopnea); Denies cough
Cardiac: Denies chest pain or palpitations
ABD/GI: Denies abdominal pain, nausea or vomiting
: Denies flank pain
Musculoskeletal: Reports edema; Denies neck pain or back pain
Neurological: Denies dizzy or headache
Phy Exam
Physical Exam
Physical Exam:
General: Awake, alert, oriented x3; no acute distress
Head: Normocephalic, atraumatic
Eyes: Conjunctiva normal, EOMI
Throat: Airway intact, handling secretions
Neck: Trachea midline, JVD noted
Lungs: He has no tachypnea or hypoxia, breath sounds are diminished at the lung bases bilaterally, otherwise lungs clear to auscultation bilaterally, no wheezing, rales, rhonchi appreciable
Heart: Regular rate and irregular rhythm, systolic murmur noted
Abd: Soft, non distended, nontender
Neuro: Grossly intact
Skin: Warm and dry
Extremities: Trace edema in the legs bilaterally; extremities are warm and well-perfused
Scores
Heart Failure Risk
Heart Failure Risk Score: Yes
History of Stroke or TIA: No
History of intubation for respiratory distress: No
Heart rate on ED arrival >/= 110: No
SaO2 <90% on arrival on room air: No
HR >/=110 during 3min walk test (or too ill to perform test): Yes
ECG has acute ischemic changes: No
Urea >/=12mmol/L (BUN 33.6mg/dL): No
Serum CO2>/=35mmol/L: No
Troponin I or T elevated to ME Level (0.4mg/dL): No
NT-proBNP >/=5,000ng/L (5,000pg/ml): No
HF Risk Score: 2
Admission Status: MEDIUM RISK 9.2% Consider observation or discharge to home with homecare & f/u visit to PCP/Contact Person, or SNF for treatment
Heart Score for Chest Pain Patients
STEMI patient?: Not applicable
Withdrawal Assessment of Alcohol
Withdrawal Assessment Completed?: Not applicable
Course
Orders/Labs/Results
Orders:
Orders
06/08/25 12:58
Electrocardiogram (*1) Urgent
Reason for Study: Chest Pain
EKG- Treatment ONCE
CR Chest - 2 Views Urgent
Comment:
Reason For Exam: respiratory distress
06/08/25 13:05
Complete Blood Count/With Diff Urgent
Comprehensive Metabolic Panel Urgent
NT-proBNP Urgent
Troponin I Urgent
06/08/25 14:11
Furosemide [Lasix] 40 mg IV NOW STA
06/08/25 14:21
Apixaban [Eliquis] 5 mg PO ONCE ONE
06/08/25 16:05
Troponin I Urgent
Abnormal Lab Results
06/08/25
13:05
Absolute Lymphs (auto) 1.0 L 10^3/uL
(1.2-3.4)
Neutrophils % 76.8 H %
(42.2-75.2)
Lymphocytes % 13.7 L %
(20.5-51.1)
BUN 22 H mg/dl
(9-20)
Glucose 119 H mg/dl
(70-99)
Troponin I 0.132 H* ng/ml
06/08/25 13:05
06/08/25 13:05
Vital Signs
Initial and Last Documented VS:
Initial Vital Signs
Temp Pulse Resp BP Pulse Ox
36.7 C 76 20 128/74 95
06/08/25 12:53 06/08/25 12:53 06/08/25 12:53 06/08/25 12:53 06/08/25 12:53
Last Documented Vital Signs
Temp Pulse Resp BP Pulse Ox
36.7 C 76 20 128/74 95
06/08/25 12:53 06/08/25 12:53 06/08/25 12:53 06/08/25 12:53 06/08/25 14:21
MDM/Problems Addressed
Differential Diagnosis Includes:
CHF, pneumonia, PE, bronchitis
MDM/Problems Addressed:
80-year-old male presents to the ER for evaluation of fatigue, weight gain, leg swelling and now increasing orthopnea despite increasing outpatient Lasix dose yesterday. Vital signs and exam as above overall clinical picture concerning for
congestive heart failure exacerbation. His EKG shows what appears to be new onset A-fib fortunately rate controlled which is likely trigger. He had labs sent off including a CBC and a CMP which showed no clinically significant abnormalities. His
proBNP is elevated to 4900 consistent with CHF. His troponin is slightly elevated to 0.132 likely in the setting of CHF�will continue to trend, no chest pain to suggest that this is ACS. Chest x-ray shows bilateral pleural effusions with pulmonary
vascular congestion. Will treat with IV Lasix, initiate Eliquis for new onset A-fib and admit for continued management. Discussed with hospitalist for admission.
Chronic conditions affecting care:
CHF
*Pulse Oximetry
SaO2: 95
Oxygen Mode of Delivery: Room air
Patient hypoxic: no (95%)
*EKG
Interpreted by ED Provider?: Yes
Heart Rate: 81
Rate: normal
Rhythm: a-fib
[place]: normal axis
Interval: normal interval
QRS Pattern: normal QRS
Ischemia: no ischemia
*Critical Care Note
Total Time (30-74mins, 75-104mins- exclusive of procedures): Not Applicable
Data Reviewed
Review of Other/Old Records Reveals: Labs and Records
Source: patient, records and family
ED Attending Note
-
Portions of this chart may have been created with voice recognition software.� Occasional wrong word or��sound alike� substitutions may have occurred due to the inherent limitations of voice recognition software.
Discharge Plan
Departure
Patient Disposition: Admit
Date of Disposition: 06/08/25
Time of Disposition: 14:21
Admit to doctor: Lili
Presentation/result/management discussed w/ accepting MD/DO: Hospitalist
Discharge Problem:
CHF (congestive heart failure), Elevated troponin, Atrial fibrillation
Prescriptions:
No Action
multivitamin Tablet
1 tab PO DAILY
Kelp 0.15 mg Tablet
0.15 mcg PO BID
saw palmetto 500 mg Capsule
500 mg PO BID
finasteride 5 mg tablet
5 mg PO QPM
omega 8-ojr-vaz-fish oil [Fish Oil] 1,000 mg (120 mg-180 mg) Capsule
1 cap PO BID
PreserVision AREDS-2 250-90-40-1 mg Capsule
1 tab PO BID
spironolactone 25 mg Tablet
12.5 mg PO DAILY Qty: 30 0RF
dapagliflozin propanediol [Farxiga] 10 mg Tablet
10 mg PO DAILY Qty: 30 0RF
furosemide [Lasix] 20 mg tablet
20 mg PO DAILY Qty: 30 0RF
Interventions
Interventions:
*Risk Screen - Suicide Last Done: 06/08/25 12:53
*Neglect/Abuse Screening Last Done: 06/08/25 12:53
*ED- Fall Risk Assessment Last Done: 06/08/25 12:53
Discharge Date and Time
Print Language: URDU
[2025-06-08 14:16] VITALS: BP 134/82
[2025-06-08] MEDS: LASIX 40 MG IV (14:41)
[2025-06-08] MEDS: ELIQUIS 5 MG PO ×2 (14:42→21:03)
--- NOTE | 2025-06-08 14:49 | HPS.HSE ---
Family Physician
-
Family Physician: Dina Spears PA-C
Chief Complaint
-
Shortness of breath
History of Present Illness
Patient is pleasant 80 years old with history of benign prostatic hyperplasia, aortic stenosis, mitral regurg, congestive heart failure who came to the ER with shortness of breath and orthopnea, associated with dyspnea exertion, which started for
the last week and he reached out to his slots manager Dr. Garber who advised to take extra Lasix, patient typically takes 20 mg of Lasix daily, yesterday he received 40 mg of Lasix, no improvement, patient also noticed weight gain, denies chest pain,
no fever or chills, no abdominal pain, no nausea or vomiting.
In the ER patient had a chest x-ray which shows:
1. MODERATE LEFT PLEURAL EFFUSION with adjacent compressive atelectasis of the left lower lobe.
2. Small right pleural effusion.
3. Mild cardiomegaly.
Patient BNP was elevated, received Lasix in the ER.
Patient also noted to have atrial fibrillation with controlled heart rate, started on Eliquis.
Patient will be admitted under hospitalist service, plan discussed with patient and his daughter at bedside.
Medical History
Past Medical History
Past Medical History: Reports CHF and Other (BPH on Fenesteride )
Past Surgical History: Reports None
Social History
Tobacco: Former Smoker (50 yrs ago )
Alcohol: Daily (a aglass of vodka or wine)
Personal:
Living: With Family
Family History
Family History: Not pertinent
Allergies / Home Medications
Allergies reflects when Allergies were last updated in [employer].
Home Medications with original date entered in [facility]
Allergy/Medication List:
Allergies
Allergy/AdvReac Type Severity Reaction Status Date / Time
No Known Allergies Allergy Unverified 12/19/23 17:41
Home Medications (not confirmed)
finasteride 5 mg tablet 5 mg PO QPM Urinary Issue 12/19/23
iodine (kelp) 0.15 mg tablet (Kelp) 0.15 mcg PO BID Supplement 12/19/23
multivitamin 1 tab PO DAILY Supplement 12/19/23
omega 7-yws-hnm-fish oil 1,000 mg (120 mg-180 mg) capsule (Fish Oil) 1 cap PO BID Supplement 12/19/23
saw palmetto 500 mg capsule 500 mg PO BID Supplement 12/19/23
vit C 250 mg-vit E 90 mg-zinc 40 mg-copper 1 az-stvvqg-pajxih capsule (PreserVision AREDS-2) 1 tab PO BID Supplement 12/19/23
dapagliflozin propanediol 10 mg tablet (Farxiga) 10 mg PO DAILY #30 tabs 12/21/23
furosemide 20 mg tablet (Lasix) 20 mg PO DAILY #30 tabs 12/21/23
spironolactone 25 mg tablet 12.5 mg (1/2 x 25 mg) PO DAILY #30 tabs 12/21/23
Review of Systems
-
A 12 point ROS was completed and negative except as noted: Yes
Constitutional: Reports Weight Gain and Fatigue; Denies Fever, Weight Loss or Sleep Disturbance
EENT: Denies Tearing, Sore Throat, Mouth Pain, Mouth Swelling or Runny Nose
Respiratory: Reports Trouble Breathing; Denies Cough or Hemoptysis
Cardiac: Denies Chest Pain, Diaphoresis, Palpitations or Syncope
Abdomen/GI: Denies Abdominal Pain, Nausea, Vomiting, Diarrhea, Constipated, Bloody Stools or Black Stools
: Denies Dysuria, Frequency, Flank Pain, Incontinence, Difficulty Voiding, Urgency, Bleeding or Dark Urine
Musculoskeletal: Denies Joint Pain, Joint Swelling, Muscle Pain, Muscle Stiffness or Edema
Skin: Denies Itching or Rash
Neurological: Denies Dizzy, Headache, Weakness or Numbness
Endocrine: Denies Polyuria, Polydipsia or Temp Intolerance
Hematologic/Lymphatic: Denies Bleeding, Swollen Glands or Bruising
Psych: Reports Calm; Denies Depression, Anxiety or Panic Disorder
Physical Exam
Vital Signs
Vital Signs
Temp Pulse Resp BP Pulse Ox
98.0 F 75 19 134/82 95
06/08/25 12:53 06/08/25 14:31 06/08/25 14:30 06/08/25 14:16 06/08/25 14:30
Physical Exam
General: Well Developed, Well Nourished, No Apparent Distress, Comfortable and Good Appetite; No Pain, Chills or Sweats
HEENT: NormoCephalic, Moist mucous membranes, Atraumatic, Good Dentition, PERRLA, Nose Appears Normal and Ears Appear Normal
Respiratory: Rales, Rhonchi and Crackles
Cardiac: S1/S2 and Regular Rhythm
Breast: Deferred by me
GI: Soft, Non Tender, Non Distended and Normal Bowel Sounds
Genito-urinary: Deferred by me
Musculoskeletal: No Clubbing, No Cyanosis and No Edema
Skin: Warm; No Rash, Jaundice, Ulcers, Lesions or Decubitus Ulcers
Neuro: Awake, Alert, Oriented, AO x 3, No Motor Deficits, Nonfocal/grossly intact and Cranial Nerves Intact
Hematologic/Lymphatic: No Lymphadenopathy
Psych: Calm
Laboratory Results
-
06/08/25 13:05
06/08/25 13:05
Laboratory Results
Total Bilirubin 1.2 mg/dl (0.2-1.3) 06/08/25 13:05
AST 37 U/L (17-59) 06/08/25 13:05
ALT 44 U/L (0-50) 06/08/25 13:05
Alkaline Phosphatase 59 U/L (38-126) 06/08/25 13:05
Troponin I 0.132 ng/ml H* 06/08/25 13:05
Data Reviewed
-
Diagnostic Radiology: Report Reviewed by me
CT Scan: Report Reviewed by me
Medical Tests (Nuc Med, Echo, EKG etc): Report Reviewed by me
Lab Data: Labs Reviewed by me
Old Records: Reviewed
Impression/Plan
-
IMPRESSION:
Patient is pleasant 80 years old with history of benign prostatic hyperplasia, aortic stenosis, mitral regurg, congestive heart failure who came to the ER with shortness of breath and orthopnea, associated with dyspnea exertion, which started for
the last week and he reached out to his slots manager Dr. Garber who advised to take extra Lasix, patient typically takes 20 mg of Lasix daily, yesterday he received 40 mg of Lasix, no improvement, patient also noticed weight gain, denies chest pain,
no fever or chills, no abdominal pain, no nausea or vomiting.
In the ER patient had a chest x-ray which shows:
1. MODERATE LEFT PLEURAL EFFUSION with adjacent compressive atelectasis of the left lower lobe.
2. Small right pleural effusion.
3. Mild cardiomegaly.
Patient BNP was elevated, received Lasix in the ER.
Patient also noted to have atrial fibrillation with controlled heart rate, started on Eliquis.
Patient will be admitted under hospitalist service, plan discussed with patient and his daughter at bedside.
Assessment/plan:
Acute on chronic diastolic CHF Exacerbation:
Patient presented with shortness of breath.
BNP level is elevated at 4980
Troponin level is 0.132
Patient takes Lasix 20 mg daily at home, received 40 mg yesterday
Continue IV diuresing in form of Lasix 20 mg twice daily
Daily weight.
Strict I's and O's.
Consulted cardiology (known to Dr Garber)
Most recent echo shows on December 19, 2024 shows :
Normal biventricular size and systolic function without regional wall motion
abnormality.
Moderate mitral regurgitation.
Moderate aortic stenosis.
Compared to the prior on 12/20/2023, aortic stenosis is now moderate from mild
on the prior study. Mitral regurgitation remains moderate.
Repeat echo pending
New onset A-fib
Rate controlled.
No need to add rate control medications for now.
Started on Eliquis.
manager hospitality consult for pricing
Echocardiogram
Daily alcohol use
one drink of wine/ or vodka
No sign of alcohol withdrawal.
Folic acid/thiamine.
Treat withdrawal if needed
Elevated troponin/possible type II demand
Was elevated on December 2028
Denies chest pain.
EKG shows no ischemic changes.
Monitor troponin.
Cardiology consult.
Echocardiogram
Ischemic workup (stress test) as per cardiology
Benign prostatic hyperplasia
Continue finasteride
CODE STATUS: Full code
DVT prophylaxis: Eliquis
Diet: cardiac diet
Family communication: Discussed plan with daughter at bedside
Disposition: IV diuresis, echocardiogram, cardiology consult.
Total time spent on today's encounter was 75 minutes which included time spent in counseling the patient/family regarding diagnosis and treatment plan as listed above, goals of care, and symptom management. Case was discussed with nursing staff,
specialists, and care coordinators/case management. All labs and imaging personally reviewed by me. Remainder the time spent in detailed review of previous records, lab data, imaging, and other medical provider documentation.
--- NOTE | 2025-06-08 15:33 | CON.CAR ---
Consultation
Consultation Request
Date/Time Consultation Requested: 06/08/25
Date/Time Consultation Performed: 06/08/25
Requesting Provider: Dr Conte
Performing Provider: Dr Hoffman (Dr Garber)
Reason for Consultation: heart failure and new af
Medical History
-
Chief Complaint: Shortness of breath
History of Present Illness:
Cornell Davis is a 80-year-old male with HFpEF, Mod MR, BPH and former smoker (cessation in his 20s) who presented to the emergency department with shortness of breath. He has noted fatigue for some time but has been sob for several days and
for the last 2 nights cannot breath comfortably while lying in bed. He has no cp or sense of arrhythmia. He is diligent about salt intake but does have two drinks a day.Addtionally, wt has been slowly climbing feels best at 150lbs but was only up
slightly to 152lbs on his home scale.
Past Medical History
Past Medical History: Other (RBBB, BPH)
Past Surgical History: Tonsilectomy
Social History
Tobacco: Former Smoker
Alcohol: Daily (2 drinks daily)
Drug: None
Personal: (Sudden. Within the last month.)
Living: Alone
Employment: Retired
Family History
Family History: Reviewed & Not Pertinent
Allergies / Home Medications
Allergy/AdvReac Type Severity Reaction Status Date / Time
No Known Allergies Allergy Unverified 12/19/23 17:41
�Medication �Instructions �Recorded �Confirmed �Type
finasteride 5 mg tablet 5 mg PO QPM Urinary Issue 12/19/23 06/08/25 History
multivitamin 1 tab PO DAILY Supplement 12/19/23 06/08/25 History
omega 0-opw-fmn-fish oil 1,000 mg 1 cap PO BID Supplement 12/19/23 06/08/25 History
(120 mg-180 mg) capsule (Fish Oil)
saw palmetto 500 mg capsule 500 mg PO BID Supplement 12/19/23 06/08/25 History
dapagliflozin propanediol 10 mg 10 mg PO QPM 06/08/25 06/08/25 History
tablet (Farxiga)
furosemide 20 mg tablet (Lasix) 20 mg PO QPM 06/08/25 06/08/25 History
mirabegron 50 mg tablet,extended 50 mg PO QPM 06/08/25 06/08/25 History
release 24 hr (Myrbetriq)
spironolactone 25 mg tablet 25 mg PO QPM 06/08/25 06/08/25 History
Review of Systems
-
All other systems: Negative unless noted
Physical Exam
Vital Signs
Temp Pulse Resp BP Pulse Ox
98.0 F 74 23 134/82 95
06/08/25 12:53 06/08/25 14:45 06/08/25 14:45 06/08/25 14:16 06/08/25 14:30
Lab Results
06/08/25 13:05
06/08/25 13:05
Troponin I 0.132 ng/ml H* 06/08/25 13:05
Ozs-L-Dituzugixec Pept 4980 pg/ml 06/08/25 13:05
Physical Exam
General: Well Developed and Well Nourished
Respiratory: Clear; Negative Wheezes, Crackles or Rhonchi
Cardiac: S1/S2, Irregular Rhythm, Murmur (1/6 systolic in the rusb) and Peripheral Edema (trace bl)
GI: Soft, Non Tender and Non Distended
Musculoskeletal: No Clubbing and No Cyanosis
Neuro: AO x 3
Impression / Plan
-
Heart failure, acute HFpEF:
-mild seems to be due to AFIB
-IV diuresis with intensive monitoring needed
-GDMT as needed
-update echo with rhythm change--likely magaly
- Education, low Na+ diet, and fluid restriction.�
AF unspecefied type:
-unclear etiology but seems to be causing CHF exacerbation
-npo p tomorrow for magaly/dccv in am
-c2v 4(age, htn, chf)
-eliquis started
-would recommend early refferal to PVI as seems to be causing his afib
abnormal trop: likely due to nonischemic myocardial injury secondary to chf and arrhythmia:
-echo
-trend
Valvular heart disease
- mild
- mod MR, no evidence of septal NV.�
- PA pressure could not be estimated.
HTN: chronic
Former smoker, continued cessation recommended
BPH
Data: Echo 12/20/23 LVEF55%, RV nml, mild as, trace ar, mod mr
Data Reviewed
-
EKG: Tracing Personally Visualized and interpreted (afib, rbbb, septal infarct), Discussed with Physician (Dr Conte magaly/dccv tuesday) and Discussed with Family (children at the bedside)
Radiology: Image Personally Visualized and interpreted (LT Pleural effusion, mild interstitial edema)
--- NOTE | 2025-06-08 16:09 | CM ---
CM reviewed chart and met with pt bedside in ED. Lives alone in 1 story home, 1 [address].
Independent in ADLs, personal care and ambulation at baseline. Has cane that belonged to his .
His daughter Kenyatta and granddaughter Marisol provide support as needed.
Confirms prescription coverage.
NO hx VN or SNF
PCP: Dina Spears
Pharmacy: [facility]
Anticipate discharge home, CM will continue to follow for any discharge planning needs.
[2025-06-08 16:56] VITALS: BP 130/74
[2025-06-08 17:43] LABS: Troponin I 0.133 ng/ml
[2025-06-08 18:15] VITALS: BP 127/74
[2025-06-08 18:16] VITALS: BMI 25.6
--- NOTE | 2025-06-08 18:40 | PTCARENOTE ---
Received pt from ER via stretcher, accompanied by ER staff. Pt AAO x3, MONK well, ambulatory to bed, no c/o weakness/dizziness. VSS. Placed on telemetry:Afib with occ PVC's. On room air- pulse ox 98%, pt with (+) slight MATA; denies SOB. Abd soft,
rounded, to start 2 Gm Na/chol lowering diet with 1800 ml fl restriction. Voids clear yellow urine in urinal. Afebrile; skin warm and dry. Oriented to 4east, currently resting comfortably. Will continue to monitor.
[2025-06-08 19:44] VITALS: BP 118/69
[2025-06-08] MEDS: FARXIGA 10 MG PO (21:03)
[2025-06-08] MEDS: PROSCAR 5 MG PO (21:03)
[2025-06-08] MEDS: LASIX 20 MG IV (21:03)
[2025-06-08 22:39] VITALS: BP 129/76
[2025-06-09] VITALS (7 sets, daily range): BP systolic 115–144; BP diastolic 64–85; BMI 25.4
[2025-06-09 07:59] LABS: Hematocrit 41.4 % (39.0-52.0); Hemoglobin 14.2 g/dL (13.0-18.0); Mean Corp Hgb Conc. 34.3 g/dL (33.0-37.0); Mean Corpuscular Volume 91.6 fL (80.0-94.0); Platelet Count 213 10^3/uL (130-400); Red Cell Dist. Width 13.2 % (11.5-14.5)
[2025-06-09] MEDS: ELIQUIS 5 MG PO ×2 (08:40→20:14)
[2025-06-09] MEDS: FARXIGA 10 MG PO (08:40)
[2025-06-09] MEDS: ALDACTONE 12.5 MG PO (08:40)
[2025-06-09] MEDS: VITAMIN B1 100 MG PO (08:40)
[2025-06-09] MEDS: FOLVITE 1 MG PO (08:40)
[2025-06-09] MEDS: LASIX 20 MG IV ×2 (08:41→16:28)
[2025-06-09 08:46] LABS: ALT (SGPT) 42 U/L (0-50); AST (SGOT) 32 U/L (17-59); Albumin 4.1 g/dl (3.5-5.0); Alkaline Phosphatase 57 U/L (38-126); Blood Urea Nitrogen 24 mg/dl (9-20); Calcium 9.1 mg/dl (8.4-10.2); Carbon Dioxide 28 mmol/L (22-30); Chloride 104 mmol/L (98-107); Estimated Creatinine Clearance 49 ml/min; Glucose 99 mg/dl (70-99); Magnesium 2.6 mg/dl (1.6-2.3); Potassium 4.2 mmol/L (3.5-5.1); Sodium 139 mmol/L (135-145); Total Protein 6.4 g/dl (6.3-8.2); eGFR > 60.00
--- NOTE | 2025-06-09 12:18 | W.PN.HOSP.TC ---
Today's Communication/Plan
-
Continue IV Lasix.
BAKARI/cardioversion tomorrow
Assessment / Plan
Assessment / Plan
Impression:
Patient is pleasant 80 years old with history of benign prostatic hyperplasia, aortic stenosis, mitral regurg, congestive heart failure who came to the ER with shortness of breath and orthopnea, associated with dyspnea exertion, which started for
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 Garber who advised to take extra Lasix, patient typically takes 20 mg of Lasix daily, yesterday he received 40 mg of Lasix, no improvement, patient also noticed weight gain, denies chest pain,
no fever or chills, no abdominal pain, no nausea or vomiting.
In the ER patient had a chest x-ray which shows:
1. MODERATE LEFT PLEURAL EFFUSION with adjacent compressive atelectasis of the left lower lobe.
2. Small right pleural effusion.
3. Mild cardiomegaly.
Patient BNP was elevated, received Lasix in the ER.
Patient also noted to have atrial fibrillation with controlled heart rate, started on Eliquis.
Patient will be admitted under hospitalist service, plan discussed with patient and his daughter at bedside.
Seen by cardiology.
Plan for BAKARI/cardioversion Tuesday.
Assessment/plan:
Acute on chronic diastolic CHF Exacerbation:
Patient presented with shortness of breath.
BNP level is elevated at 4980
Troponin level is 0.132
Patient takes Lasix 20 mg daily at home, received 40 mg yesterday
Continue IV diuresing in form of Lasix 20 mg twice daily
Daily weight.
Strict I's and O's.
Consulted cardiology (known to Dr Garber)
Most recent echo on December 19, 2024 shows :
Normal biventricular size and systolic function without regional wall motion
abnormality.
Moderate mitral regurgitation.
Moderate aortic stenosis.
Compared to the prior on 12/20/2023, aortic stenosis is now moderate from mild
on the prior study. Mitral regurgitation remains moderate.
Repeat echo pending
New onset A-fib
Rate controlled.
No need to add rate control medications for now.
Started on Eliquis.
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
BAKARI/cardioversion Sunday 06/10
Daily alcohol use
one drink of wine/ or vodka
No sign of alcohol withdrawal.
Folic acid/thiamine.
Treat withdrawal if needed
Elevated troponin/possible type II demand
Was elevated on December 2024
Denies chest pain.
EKG shows no ischemic changes.
Monitor troponin.
Cardiology consulted.
Echocardiogram pending
Ischemic workup (stress test) as per cardiology as OP.
Benign prostatic hyperplasia
Continue finasteride
CODE STATUS: Full code
DVT prophylaxis: Eliquis
Diet: cardiac diet
Family communication: Discussed plan with daughter at bedside on day of admission.
Disposition: Continue IV Lasix.
BAKARI/cardioversion tomorrow
Total time spent on today's encounter was 65 minutes which included time spent in counseling the patient/family regarding diagnosis and treatment plan as listed above, goals of care, and symptom management. Case was discussed with nursing staff,
specialists, and care coordinators/case management. All labs and imaging personally reviewed by me. Remainder the time spent in detailed review of previous records, lab data, imaging, and other medical provider documentation.
Anticipated Discharge: 24 - 48 hours
Subjective/Interval History
-
Date of Service: June 09, 2025
Patient seen and examined at bedside, denies any chest pain or shortness of breath, no abdominal pain, no nausea, no vomiting, no diarrhea or constipation.
Objective Data
-
Labs:
Laboratory Results
06/09/25
06:28
WBC 7.2
Hgb 14.2
Hct 41.4
Plt Count 213
Sodium 139
Potassium 4.2
Chloride 104
Carbon Dioxide 28
BUN 24 H
Creatinine 1.0
Glucose 99
Calcium 9.1
Total Bilirubin 1.0
AST 32
ALT 42
Alkaline Phosphatase 57
Vital Signs:
Vital Signs
Temp Pulse Resp BP Pulse Ox
98.1 F 70 20 119/75 96
06/09/25 11:38 06/09/25 11:38 06/09/25 11:38 06/09/25 11:38 06/09/25 11:38
I&O
06/08/25 06/09/25 06/10/25
06:59 06:59 06:59
Output Total 1250 / 1250
Balance -1250 / -1250
Physical Exam
-
General: Well Developed, Well Nourished, No Apparent Distress and Comfortable
HEENT: Normocephalic, Atraumatic, Moist Mucous Membranes, No Ptosis, PERRLA and Nose Appears Normal
Respiratory: Rales and Non Labored Respirations
Cardiac: S1/S2 and Irregular Rhythm
Breast: Deferred by me
GI: Soft, Nontender, Nondistended and Normal Bowel Sounds
Genito-urinary: No Costovertebral Tender
Musculoskeletal: No Clubbing, No Cyanosis and No Edema
Skin: Warm
Neuro: Awake, Alert, Oriented, AO x 3 and No Motor Deficits
Psych: Calm
Data Reviewed
-
Diagnostic Radiology: Image personally visualized and interpreted and Report Reviewed by me
CT Scan: Image personally visualized and interpreted and Report Reviewed by me
Ultrasound: Image personally visualized and interpreted and Report Reviewed by me
MRI: Image personally visualized and interpreted and Report Reviewed by me
Medical Tests (Nuc Med, Echo etc): Image personally visualized and interpreted and Report Reviewed by me
Labs: Labs Reviewed by me
Old Records: Reviewed
--- NOTE | 2025-06-09 13:47 | W.PN.CD ---
Today's Communication / Plan
-
continue IV diuresis
npo p mn for magaly/dccv in am.
Impression / Plan
-
Heart failure, acute HFpEF:
-mild seems to be due to AFIB
-Continue IV diuresis with intensive monitoring needed
-GDMT as needed
-update echo with rhythm change--likely magaly
- Education, low Na+ diet, and fluid restriction.�
AF unspecefied type:
-unclear etiology but seems to be causing CHF exacerbation
-npo p md tomorrow for magaly/dccv in am
-c2v 4(age, htn, chf)
-eliquis started
-would recommend early referral to PVI as seems to be causing his afib
abnormal trop: likely due to nonischemic myocardial injury secondary to chf and arrhythmia:
-echo
Valvular heart disease
- mild
- mod MR, no evidence of septal LA.�
- PA pressure could not be estimated.
HTN: chronic
Former smoker, continued cessation recommended
BPH
Data: Echo 12/20/23 LVEF55%, RV nml, mild as, trace ar, mod mr
Physical Exam
Vital Signs/Labs
Vital Signs
Temp Pulse Resp BP Pulse Ox
98.1 F 70 20 119/75 96
06/09/25 11:38 06/09/25 11:38 06/09/25 11:38 06/09/25 11:38 06/09/25 11:38
06/08/25 06/09/25 06/10/25
06:59 06:59 06:59
Actual Weight 147 lb 9.592 oz
06/09/25 06:28
06/09/25 06:28
Magnesium 2.6 mg/dl (1.6-2.3) H 06/09/25 06:28
06/08/25
13:05
Prz-T-Xyngjforwzl Pept 4980
LAB Results
06/08/25 06/08/25
16:56
Troponin I 0.132 H* 0.133 H*
Physical Exam
Constitutional: No acute distress
Cardiovascular: Pedal edema is absent, Systolic murmur absent, Diastolic murmur absent and Rhythm/rate is irregular
Respiratory: Respiratory effort normal, Lungs clear to auscul., Wheeze Absent, Crackles Absent and Rhonchi Absent
Neuro/Psych: AO x 3
Data Reviewed
-
Date of Service: June 09, 2025
Medical Decision Making: Review of Case with other Provider (Dr Conte continue diuresis and npo p mn)
[2025-06-09] MEDS: PROSCAR 5 MG PO (18:11)
[2025-06-10 03:00] VITALS: BP 127/74
[2025-06-10 06:00] VITALS: BMI 24.6
[2025-06-10 07:30] VITALS: BP 140/67
[2025-06-10] MEDS: FOLVITE 1 MG PO (08:44)
[2025-06-10] MEDS: FARXIGA 10 MG PO (08:44)
[2025-06-10] MEDS: VITAMIN B1 100 MG PO (08:44)
[2025-06-10] MEDS: ALDACTONE 12.5 MG PO (08:44)
[2025-06-10 08:45] LABS: Hematocrit 48.4 % (39.0-52.0); Hemoglobin 16.1 g/dL (13.0-18.0); Mean Corp Hgb Conc. 33.3 g/dL (33.0-37.0); Mean Corpuscular Volume 91.7 fL (80.0-94.0); Platelet Count 223 10^3/uL (130-400); Red Cell Dist. Width 13.2 % (11.5-14.5)
[2025-06-10] MEDS: ELIQUIS 5 MG PO (08:45)
[2025-06-10] MEDS: LASIX 20 MG IV (08:45)
[2025-06-10 09:04] LABS: Blood Urea Nitrogen 22 mg/dl (9-20); Calcium 9.6 mg/dl (8.4-10.2); Carbon Dioxide 30 mmol/L (22-30); Chloride 102 mmol/L (98-107); Estimated Creatinine Clearance 54 ml/min; Glucose 102 mg/dl (70-99); Magnesium 2.5 mg/dl (1.6-2.3); Potassium 4.4 mmol/L (3.5-5.1); Sodium 138 mmol/L (135-145); eGFR > 60.00
[2025-06-10 09:24] LABS: Troponin I 0.182 ng/ml
[2025-06-10 11:08] VITALS: BP 144/83
--- NOTE | 2025-06-10 12:33 | W.PN.CD ---
Today's Communication / Plan
-
MAICOL thrombus present on BAKARI
continue eliquis, and repeat BAKARI in 4 wks as outpatient
Impression / Plan
-
Heart failure, acute HFpEF: improved s/p IV lasix
-transition to lasix 40mg PO daily tomorrow
-cont aldactone and farxiga
AF unspecified type: suspect persistent given the MAICOL thrombus on BAKARI
-continue eliquis 5mg bid, and reassess for rhythm control with outpatient BAKARI in 4 weeks
-CHADS2-VASC = 6
-cont Toprol XL 25mg daily
Valvular heart disease
-BAKARI today showed mild MR, mild AR, moderate and preserved LVEF 55-60%
abnormal trop: likely due to nonischemic myocardial injury secondary to chf and arrhythmia
Valvular heart disease
- mild
- mod MR, no evidence of septal AK.�
- PA pressure could not be estimated.
HTN: chronic, cont aldactone and Toprol XL
Former smoker, continued cessation recommended
BPH
Data: Echo 12/20/23 LVEF 55%, RV nml, mild as, trace ar, mod mr
Physical Exam
Vital Signs/Labs
Vital Signs
Temp Pulse Resp BP Pulse Ox
98.1 F 80 18 144/83 96
06/10/25 11:08 06/10/25 11:08 06/10/25 11:08 06/10/25 11:08 06/10/25 11:08
06/09/25 06/10/25 06/11/25
06:59 06:59 06:59
Actual Weight 66.95 kg 64.977 kg
06/10/25 08:23
06/10/25 08:23
Magnesium 2.5 mg/dl (1.6-2.3) H 06/10/25 08:23
06/08/25
13:05
Wwj-T-Hlpdtvhgxuv Pept 4980
LAB Results
06/08/25 06/08/25 06/10/25
13:05 16:56 08:23
Troponin I 0.132 H* 0.133 H* 0.182 H*
Physical Exam
Constitutional: No acute distress and Comfortable
EENT: Moist mucous membranes
Cardiovascular: Pedal edema is absent, JVD pressure is normal, Rhythm/rate is irregular and Systolic murmur present
Respiratory: Respiratory effort normal and Lungs clear to auscul.
Neuro/Psych: AO x 3
Data Reviewed
-
Date of Service: June 10, 2025
EKG: Other
Labs: Labs Reviewed by me
[2025-06-10] MEDS: TOPROL XL 25 MG PO (13:29)
--- NOTE | 2025-06-10 14:58 | W.PN.HOSP.TC ---
Today's Communication/Plan
-
Assessment / Plan
Assessment / Plan
General: No Apparent Distress, Comfortable and Conversant
HEENT: NormoCephalic, Moist mucous membranes, Atraumatic
Respiratory: Clear and Non Labored Respirations
Cardiac: S1/S2 and Regular Rhythm; No Rub or Gallop
GI: Soft, Non Tender, Non Distended and Normal Bowel Sounds
Musculoskeletal: No Edema, no deformity
: NO Biswas
Neuro: Awake, Alert, Nonfocal/grossly intact
Psych: Calm and Intact Judgment/Insight
Impression:
Patient is pleasant 80 years old with history of benign prostatic hyperplasia, aortic stenosis, mitral regurg, congestive heart failure who came to the ER with shortness of breath and orthopnea, associated with dyspnea exertion, which started for
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 Garber who advised to take extra Lasix, patient typically takes 20 mg of Lasix daily, yesterday he received 40 mg of Lasix, no improvement, patient also noticed weight gain, denies chest pain,
no fever or chills, no abdominal pain, no nausea or vomiting.
In the ER patient had a chest x-ray which shows:
1. MODERATE LEFT PLEURAL EFFUSION with adjacent compressive atelectasis of the left lower lobe.
2. Small right pleural effusion.
3. Mild cardiomegaly.
Patient BNP was elevated, received Lasix in the ER.
Patient also noted to have atrial fibrillation with controlled heart rate, started on Eliquis.
Patient will be admitted under hospitalist service, plan discussed with patient and his daughter at bedside.
Seen by cardiology.
Plan for BAKARI/cardioversion.
Assessment/plan:
Acute on chronic diastolic CHF Exacerbation:
- Continue diuresis with Lasix 20 IV twice daily
- I's and O's and daily weights
- Consulted cardiology (known to Dr Garber)
- Most recent echo from 12/19/2024 shows normal ventricular structure and function, moderate MR, moderate
New onset A-fib
- Currently rate controlled with Toprol-XL 25 mg daily started during this admission
- Started on anticoagulation with Eliquis ($0 co-pay)
- Has been n.p.o. after midnight pending BAKARI/cardioversion today 06/10, however cardioversion was aborted after finding of MAICOL thrombus
- Further recommendations per cardiology
Daily alcohol use
one drink of wine/ or vodka
No sign of alcohol withdrawal.
Folic acid/thiamine.
Treat withdrawal if needed
Elevated troponin/possible type II demand
Was elevated on December 2024
Denies chest pain.
EKG shows no ischemic changes.
Monitor troponin.
Cardiology following.
Ischemic workup (stress test) as per cardiology as OP.
Benign prostatic hyperplasia
Continue finasteride
CODE STATUS: Full code
DVT prophylaxis: Eliquis
Diet: cardiac diet
Disposition: Continue IV Lasix.
Total time spent with patient encounter was 57 minutes.
Anticipated Discharge: 24 - 48 hours
Subjective/Interval History
-
Date of Service: June 10, 2025
Patient was seen and examined at bedside this morning. Has been n.p.o. since midnight awaiting BAKARI/cardioversion.
Objective Data
-
Labs:
Laboratory Results
06/10/25
08:23
WBC 7.4
Hgb 16.1
Hct 48.4
Plt Count 223
Sodium 138
Potassium 4.4
Chloride 102
Carbon Dioxide 30
BUN 22 H
Creatinine 0.9
Glucose 102 H
Calcium 9.6
Vital Signs:
Vital Signs
Temp Pulse Resp BP Pulse Ox
98.1 F 77 18 136/81 96
06/10/25 11:08 06/10/25 13:29 06/10/25 11:08 06/10/25 13:29 06/10/25 11:08
I&O
06/09/25 06/10/25 06/11/25
06:59 06:59 06:59
Intake Total 760 / 760
Output Total 1250 / 1250 2200 / 2200
Balance -1250 / -1250 -1440 / -1440
Review of Systems
-
History Source: Patient
All other systems: Reviewed and negative
Physical Exam
-
General: No Apparent Distress
[2025-06-10 15:19] VITALS: BP 134/75
--- NOTE | 2025-06-10 15:38 | PTCARENOTE ---
Pt AAO x3, MONK; OOB in room with minimal assistance; occ hand tremors noted. No c/o weakness/dizziness. VSS. Telemetry:A fib; HR 70's. On room air- pulse ox 93%, pt denies SOB. Abd soft, rounded, yolanda PO well. Voids clear yellow urine in
urinal. Resting in bed at present, no c/o. Son at bedside. Will continue to monitor.
--- NOTE | 2025-06-10 15:44 | W.PN.UPDATE ---
Update Note
Progress Note Update
Saw pt post BAKARI. Pt is feeling well. No complaints. Reviewed symptoms to call the office for and that he can expect a mild sore throat post procedure. Reviewed plans for medications and follow up.
--- NOTE | 2025-06-10 16:36 | W.DCSUMMARY ---
Addendum entered and electronically signed by Diego Lilly DO 06/10/25 17:25:
Correction:
Non ischemic myocardial injury (not Type II MS)
Original Note:
Discharge Summary
Discharge Data
Date of Admission: 06/08/25
Date of Discharge: 06/10/25
Total time spent discharging patient (in min): 62
-
Pending Results: No
Hospital Course
Mr. Davis is an 80-year-old male with a medical history of HFpEF, aortic stenosis, mitral regurgitation, and enlarged prostate who presented with shortness of breath and orthopnea. He was admitted for treatment of acute on chronic HFpEF. He
diuresed well with IV Lasix. He was found to have new onset A-fib and was started on anticoagulation with Eliquis. He was brought for transesophageal echocardiogram/cardioversion on 06/10, however cardioversion was aborted after finding of left
atrial appendage thrombus. Otherwise he tolerated the procedure well. He will be continued on anticoagulation with Eliquis ($0 co-pay). His heart rate has remained well-controlled on Toprol-XL 25 mg daily, which was started during this admission.
He was transitioned back to oral diuretic with Lasix 40 mg daily, which is an increase from his prior dose of 20 mg daily. He will be discharged to home with close outpatient cardiology follow-up.
Discharge Plan
-
Patient Disposition: Home (Routine Discharge)
Discharge Diagnosis/Procedures: Acute on chronic diastolic heart failure, new onset A-fib
Activity Restrictions/Additional Instructions:
Mr. Davis is an 80-year-old male with a medical history of HFpEF, aortic stenosis, mitral regurgitation, and enlarged prostate who presented with shortness of breath and orthopnea. He was admitted for treatment of acute on chronic HFpEF. He
diuresed well with IV Lasix. He was found to have new onset A-fib and was started on anticoagulation with Eliquis. He was brought for transesophageal echocardiogram/cardioversion on 06/10, however cardioversion was aborted after finding of left
atrial appendage thrombus. Otherwise he tolerated the procedure well. He will be continued on anticoagulation with Eliquis ($0 co-pay). His heart rate has remained well-controlled on Toprol-XL 25 mg daily, which was started during this admission.
He was transitioned back to oral diuretic with Lasix 40 mg daily, which is an increase from his prior dose of 20 mg daily. He will be discharged to home with close outpatient cardiology follow-up.
Referrals:
Felicia Lea NP [Specified Professional Personl, Cardiology] - 06/24/25 11:40 am
Dina Spears PA-C [Family Provider, Internal Medicine]
Prescriptions:
New
spironolactone 25 mg Tablet
12.5 mg PO DAILY 30 Days Qty: 15 0RF
folic acid 1 mg Tablet
1 mg PO DAILY 30 Days Qty: 30 0RF
Eliquis 5 mg Tablet
5 mg PO BID 90 Days Qty: 180 0RF
furosemide 40 mg Tablet
40 mg PO DAILY 30 Days Qty: 30 0RF
metoprolol succinate 25 mg Tablet Extended Release 24 Hr
25 mg PO DAILY 30 Days Qty: 30 0RF
thiamine mononitrate (vit B1) 100 mg Tablet
100 mg PO DAILY 30 Days Qty: 30 0RF
Continued
multivitamin Tablet
1 tab PO DAILY
saw palmetto 500 mg Capsule
500 mg PO BID
finasteride 5 mg tablet
5 mg PO QPM
omega 6-amb-rjp-fish oil [Fish Oil] 1,000 mg (120 mg-180 mg) Capsule
1 cap PO BID
mirabegron [Myrbetriq] 50 mg tablet extended release 24 hr
50 mg PO QPM
dapagliflozin propanediol [Farxiga] 10 mg tablet
10 mg PO QPM
PreserVision AREDS-2 250-90-40-1 mg Capsule
1 tab PO BID
Discontinued
spironolactone 25 mg tablet
25 mg PO QPM
furosemide [Lasix] 20 mg tablet
20 mg PO QPM
Discharge Orders:
Discharge Patient (As Directed); Ordered 06/10/25
Ordered By: Diego Lilly
Discharge Date and Time
Print Language: KITTITIAN
--- NOTE | 2025-06-10 16:44 | PN.CDI ---
CDI
- -
CDI:
Physician Documentation Request
Admit Date: 06/08/25 16:12
Dear Doctor Maxx
Patient admitted for CHF exacerbation and new onset atrial fibrillation.
Troponin noted to be elevated.
Hospitalist progress note states 'Elevated troponin/possible type II demand'
Cardiology note states 'abnormal trop: likely due to nonischemic myocardial injury secondary to chf and arrhythmia'
In an attempt to clarify potentially conflicting documentation, please clarify the etiology of the elevated troponin:
Non ischemic myocardial injury
Type II UT demand ischemia
Other
Use of terms such as suspected, likely, concern for, or probable (associated with a specific diagnosis that is being evaluated, monitored, or treated as if it exists) are acceptable and can be coded in the inpatient setting, when documented at the
time of discharge.
Thank you,
Nayla Nj RN, BSN
CDI Specialist
tiger text
Please use your independent medical judgment in providing your response.
--- NOTE | 2025-06-10 17:15 | CM ---
Pt discharged to home, no needs. Tranported via private care
== END 2025-06-10 18:35 | disposition home or self-care (01) | DRG 291 ==
LOC: 4 EAST ACU 16:12
PROVIDERS: Emergency Medicine; Internal Medicine; ADMITTING PHYSICIAN General Practice; ATTENDING PHYSICIAN Internal Medicine; CONSULT PHYSICIAN Internal Medicine Cardiovascular Disease; EMERGENCY PHYSICIAN Emergency Medicine; FAMILY PHYSICIAN Physician Assistant Medical
PROC: B24BZZ4 Ultrasonography of Heart with Aorta, Transesophageal (ICD-10-PCS; 2025-06-10)
DX: I11.0 Hypertensive heart disease with heart failure (principal); I50.33 Acute on chronic diastolic (congestive) heart failure; J98.11 Atelectasis; I48.19 Other persistent atrial fibrillation; I51.3 Intracardiac thrombosis, not elsewhere classified; I5A Non-ischemic myocardial injury (non-traumatic); N40.0 Benign prostatic hyperplasia without lower urinary tract symptoms; F10.90 Alcohol use, unspecified, uncomplicated; Z87.891 Personal history of nicotine dependence; Z63.4 Disappearance and death of family member; Z79.01 Long term (current) use of anticoagulants; Z79.84 Long term (current) use of oral hypoglycemic drugs
CPT/HCPCS: 71046; 80048; 80053; 83735; 83880; 84484; 85025; 85027; 93005; 93312; 93320; 93325; 96374; 99285

== ENCOUNTER 2025-06-21 18:16 | Inpatient (IN) | payer OTHER, SELFPAY ==
[2025-06-21 13:56] VITALS: BMI 27.6
[2025-06-21 13:58] VITALS: BP 141/70
[2025-06-21 15:00] VITALS: BP 121/66
--- NOTE | 2025-06-21 15:28 | ED.GENMED ---
History of Present Illness
General
Chief Complaint: Breathing Problem
Time Seen by Provider: 06/21/25 15:17
Nursing documentation reviewed up to this point in time: agreed with
History of Present Illness
History of Present Illness:
80 year old Male brought to the ER by family for evaluation of shortness of breath while laying supine over the past 2 days. Patient reports that he had recently been admitted to the hospital with diagnosis of congestive heart failure and new
atrial fibrillation. He was initiated on anticoagulation and states that he has a clot in his heart which prevented them from performing cardioversion while admitted. He has been taking his diuretics and other medications as prescribed. He
reports no significant change in his urine output. He denies peripheral edema. He denies chest pain. He does report feeling some shortness of breath with exertion. No fevers or chills. No cough or cold symptoms. No peripheral edema. He has
been weighing himself daily but does not feel confident that the numbers are accurate as he had such a weight fluctuation during his previous hospitalization.
Past History
Past History
ED Past Medical History: Negative Asthma, HTN, Hypercholesterolemia or NIDDM
ED Past Surgical History: None
Social History
Tobacco: Former smoker
Alcohol: Daily (Wine or Martini one daily)
Personal:
Living: alone
Review of Systems
Review of Systems
Allergies reviewed?: Yes
Phy Exam
Physical Exam
Physical Exam:
Patient is awake, alert, appears in no acute distress, head is NCAT, PERRL, EOMI mucous membranes moist, conjunctiva pink, heart regular rate and rhythm without murmurs or ectopy, lungs are clear to auscultation without wheezes rales or rhonchi, no
JVD (patient is seated at 90 degrees during exam), abdomen is soft and nontender on palpation, extremities without edema, GCS is 15, 2+ DP pulses present symmetric bilateral feet
Scores
Heart Failure Risk
Heart Failure Risk Score: Yes
History of Stroke or TIA: No
History of intubation for respiratory distress: No
Heart rate on ED arrival >/= 110: No
SaO2 <90% on arrival on room air: No
HR >/=110 during 3min walk test (or too ill to perform test): No
ECG has acute ischemic changes: No
Urea >/=12mmol/L (BUN 33.6mg/dL): Yes
Serum CO2>/=35mmol/L: No
Troponin I or T elevated to WA Level (0.4mg/dL): No
NT-proBNP >/=5,000ng/L (5,000pg/ml): Yes
HF Risk Score: 2
Admission Status: MEDIUM RISK 9.2% Consider observation or discharge to home with homecare & f/u visit to PCP/Technology Applications Teacher, or SNF for treatment
Course
Orders/Labs/Results
Orders:
Orders
06/21/25 Dinner
Cholesterol Lowering
At Your Request: Limited Participation
Cholesterol Lowering: Sodium, 2 Gram
06/21/25 15:41
Cardiac Monitoring- Treatment ONCE
Vital Signs- Treatment ONCE
Frequency: q30m
CR Chest - 2 Views Urgent
Comment:
Reason For Exam: dyspnea
Pulse Ox/cont/shift [RESP] Stat
Quantity: 1
06/21/25 15:55
Complete Blood Count/With Diff Urgent
Comprehensive Metabolic Panel Urgent
Magnesium Urgent
NT-proBNP Urgent
PTT Urgent
Prothrombin Time Urgent
Troponin I Q3H
06/21/25 17:13
EKG [Electrocardiogram (*1)] Urgent
Reason for Study: Shortness of Breath
06/21/25 17:19
Furosemide [Lasix] 40 mg IV NOW STA
06/21/25 17:55
Admit/Transfer Patient As Directed
Co-Sign Provider:
Level of Care: Inpatient admission
Assign to:: Telemetry
Physician / Group: Roly
Diagnosis: Acute CHF
Reason for Telemetry: Acute Heart Failure
Date to Stop Telemetry: 06/24/25
Time to Stop Telemetry: 11:00
Reason for Hospitalization: See progress note
Expected length of stay greater than two midnights?: Yes
ELOS- Estimated Length of Stay in days: 3
I certify the patient meets the requirements for IP care: Yes
PRN Pain Medication Management As Directed
May give lesser potent ordered pain med per pt: Yes
preference::
Protocol:: Medication orders for pain may be administered in a
manner that supports deferring to patient preference
when the pt is:
- Requesting an ordered lesser potent pain medication.
Least to most potent pain medications are defined
as: acetaminophen < NSAID < tramadol < opioids
(morphine, oxycodone, hydromorphone).
- Requesting a lesser dose of the same medication IF
ORDERED.
- Requesting a less intrusive route of administration
if both routes are prescribed by the provider (PO <
IV).
06/21/25 17:58
Code Status As Directed
Resuscitation Status: Full Code
06/21/25 19:42
Dapagliflozin [Farxiga] 10 mg PO QPM
Finasteride [Proscar] 5 mg PO QPM
06/21/25 19:42
CARDIOLOGY CONSULT Routine
Consulting Provider: William Menon
Was physician already notified: Yes
Reason for consult: chf
HF DIETARY CONSULT Routine
HF EDUCATOR CONSULT Routine
Comment:
Activity As Directed
Activity Level: As Tolerated
Intake/ Output As Directed
Frequency: Per unit guidelines
Patient Education As Directed
Type: CHF folder
Comment: give on admission. Document in Interdisciplinary Education record
Sleep Apnea Assessment by RN As Directed
Comment:
Physician Instructions:
Vital Signs As Directed
Frequency: Other
Additional Instructions:: Q12 or per unit guidelines if more frequent.
Weight As Directed
Frequency: Daily
Type of Scale: Standing Scale
Comment: Daily morning weight. If unable to stand, use balanced bed scale.
Weight As Directed
Frequency: Once
Type of Scale: Standing Scale
Comment: Upon Admission. If unable to stand, use balanced bed scale.
O2 Therapy [RESP] Routine
Titrate/Wean O2 to maintain O2 sat greater than (%): 93
Pulse Ox/cont/shift [RESP] Routine
Quantity: 1
Special Instructions: Daily pulse oximetry at rest. If greater than 92% at rest also obtain pulse oximetry
while ambulating as tolerated.
Ot Eval And Treat Routine
Pt Eval And Treat Routine
Activity Level: As Tolerated
06/21/25 20:00
Apixaban [Eliquis] 5 mg PO BID
Spironolactone [Aldactone] 12.5 mg PO QPM
06/21/25 20:15
Mirabegron Extended Release [Myrbetriq Extended Release] 50 mg PO QPM
06/22/25 06:00
Basic Metabolic Panel IN AM
06/22/25 08:00
FOLic ACID [Folvite] 1 mg PO DAILY
Furosemide [Lasix] 40 mg IV BID AT 0800,1600
Metoprolol Xl [Toprol Xl] 25 mg PO DAILY
Prevagen 1 cap PO DAILY
Thiamine HCl [Vitamin B1] 100 mg PO DAILY
06/23/25 06:00
Basic Metabolic Panel IN AM
06/24/25 06:00
Basic Metabolic Panel IN AM
06/24/25 11:00
DC Protocol for Telemetry ONCE
Abnormal Lab Results
06/21/25
15:55
RBC 4.62 L 10^6/uL
(4.70-6.10)
MPV 10.5 H fL
(7.4-10.4)
Absolute Lymphs (auto) 1.0 L 10^3/uL
(1.2-3.4)
Absolute Monos (auto) 0.8 H 10^3/uL
(0.1-0.6)
Neutrophils % 75.3 H %
(42.2-75.2)
Lymphocytes % 13.0 L %
(20.5-51.1)
Monocytes % 9.8 H %
(1.7-9.3)
PT 16.7 H Sec
(11.4-14.6)
BUN 26 H mg/dl
(9-20)
Magnesium 2.6 H mg/dl
(1.6-2.3)
Troponin I 0.142 H* ng/ml
06/21/25 15:55
06/21/25 15:55
CBC and chemistry stable compared to recent labs from 06/10/2025. Troponin is similar to prior values. BNP is significantly elevated compared to prior
Vital Signs
Initial and Last Documented VS:
Initial Vital Signs
Temp Pulse Resp BP Pulse Ox
98.1 F 65 20 141/70 98
06/21/25 13:58 06/21/25 13:58 06/21/25 13:58 06/21/25 13:58 06/21/25 13:58
Last Documented Vital Signs
Temp Pulse Resp BP Pulse Ox
97.4 F 74 18 124/71 99
06/21/25 19:55 06/21/25 19:55 06/21/25 19:55 06/21/25 19:55 06/21/25 19:55
MDM/Problems Addressed
Differential Diagnosis Includes:
Differential diagnosis to consider but not limited to decompensated heart failure, ACS, arrhythmia, acute kidney failure along with other etiologies considered
Chronic conditions affecting care:
A-fib, CHF, advanced age
*Radiology
Radiology exam reviewed: radiology read reviewed
*Pulse Oximetry
SaO2: 95
Oxygen Mode of Delivery: Room air
Patient hypoxic: no
*EKG
Interpreted by ED Provider?: Yes (I independently viewed and interpreted EKG showing atrial fibrillation with controlled rate, right bundle branch block, rate 67, normal axis, no ST elevation, there is significant baseline artifact, this is an
abnormal tracing without evidence for acute STEMI, improvement in septal Q waves compared )
*Price Analyst Interpretation
Rate: normal (I independently viewed and interpreted rhythm strip showing rate controlled atrial fibrillation, right bundle branch block)
*Critical Care Note
Total Time (30-74mins, 75-104mins- exclusive of procedures): Not Applicable
Update Note
Update Note:
Patient resting in no acute distress throughout time in the emergency department. I reviewed all test results with patient along with need for admission for further diuresis given concern for congestive heart failure. I did consult cardiology
on-call who is in agreement with plan. I reviewed full patient presentation with hospitalist who accepts patient for admission. He is on long-term anticoagulation with Eliquis
ED Attending Note
-
Portions of this chart may have been created with voice recognition software.� Occasional wrong word or��sound alike� substitutions may have occurred due to the inherent limitations of voice recognition software.
Discharge Plan
Departure
Patient Disposition: Admit
Date of Disposition: 06/21/25
Time of Disposition: 17:20
Presentation/result/management discussed w/ accepting MD/DO: Hospitalist
Discharge Problem:
Congestive heart failure, Elevated troponin I level
Interventions
Interventions:
*Risk Screen - Suicide Last Done: 06/21/25 13:58
*General Assessment Last Done: 06/21/25 13:58
*Neglect/Abuse Screening Last Done: 06/21/25 13:58
*ED- Fall Risk Assessment Last Done: 06/21/25 14:08
*ED COVID-19 Vaccine History Last Done: 06/21/25 19:35
*Nursing Disposition Last Done: 06/21/25 19:35
ED- Cardiac Assessment Last Done: 06/21/25 14:08
ED- Pulmonary Assessment Last Done: 06/21/25 14:08
Discharge Date and Time
Discharge Date/Time: 06/21/25 19:35
[2025-06-21 16:09] LABS: Hematocrit 42.3 % (39.0-52.0); Hemoglobin 14.2 g/dL (13.0-18.0); Mean Corp Hgb Conc. 33.6 g/dL (33.0-37.0); Mean Corpuscular Volume 91.6 fL (80.0-94.0); Nucleated Red Blood Cells % 0 % (-); Platelet Count 213 10^3/uL (130-400); Red Cell Dist. Width 13.4 % (11.5-14.5)
[2025-06-21 16:33] LABS: INR 1.33; PT 16.7 Sec (11.4-14.6)
[2025-06-21 16:34] LABS: APTT 31.7 Sec (23.4-35.0)
[2025-06-21 16:36] LABS: ALT (SGPT) 38 U/L (0-50); AST (SGOT) 30 U/L (17-59); Albumin 4.4 g/dl (3.5-5.0); Alkaline Phosphatase 72 U/L (38-126); Blood Urea Nitrogen 26 mg/dl (9-20); Calcium 9.2 mg/dl (8.4-10.2); Carbon Dioxide 24 mmol/L (22-30); Chloride 106 mmol/L (98-107); Estimated Creatinine Clearance 54 ml/min; Glucose 99 mg/dl (70-99); Magnesium 2.6 mg/dl (1.6-2.3); Potassium 4.6 mmol/L (3.5-5.1); Sodium 136 mmol/L (135-145); Total Protein 6.8 g/dl (6.3-8.2); Troponin I 0.142 ng/ml; eGFR > 60.00
--- NOTE | 2025-06-21 17:15 | CON.CAR ---
Addendum entered and electronically signed by William Menon MD 06/21/25 18:16:
suggest lasix 40mg iV BID
Addendum entered and electronically signed by William Menon MD 06/21/25 18:14:
I saw and examined the patient.
The PLASTIC BATTERY ASSEMBLER's note was reviewed and I agree with the note, except with presence of MAICOL thrombus patients stroke risk is higher than what would be suggested by [id number].
.
Primary block sealer Dr. Garber
80-year-old male with heart failure preserved ejection fraction, moderate aortic stenosis, persistent atrial fibrillation left atrial thrombus, hypertension and right bundle branch block who presents with shortness of breath. Patient had recent
hospitalization with newly diagnosed A-fib and was noted to have a left atrial appendage thrombus so patient was not cardioverted. Patient maintained on Eliquis and subsequently discharged. Patient's noticed some issues with increased shortness of
breath at rest and when laying flat. Compliant with medical therapy including Eliquis. No fever or cough. He has not noticed edema but there is a small degree of lower extremity edema on exam. Presentation consistent with acute on chronic heart
failure with preserved ejection fraction in the setting of A-fib.
.
Heart failure with preserved ejection fraction.
-Acute on chronic
- Diuresis with IV Lasix
- Monitor renal function
- Daily weights
- Continue Farxiga and spironolactone
.
A-fib.
- Rate controlled
- Left atrial appendage thrombus noted on BAKARI 06/10/2025. Continue with anticoagulation. Plan is for follow-up BAKARI in 4 to 6 weeks
.
Aortic stenosis. Moderate by most recent echo.
Original Note:
Consultation
Consultation Request
Date/Time Consultation Requested: 06/21/2025 16:40
Date/Time Consultation Performed: 06/21/2025 17:10
Requesting Provider: Dr. Sierra
Performing Provider: MARGIE Tran for Dr. Menon
Reason for Consultation: Shortness of breath
Medical History
-
Chief Complaint: Shortness of breath
History of Present Illness:
Cornell Davis is an 80-year-old male (known to Dr. Garber, his primary block sealer), with HFpEF, aortic stenosis, mitral regurgitation, persistent atrial fibrillation, MAICOL thrombus (seen on BAKARI 06/10/2025), hypertension, and RBBB presented to the
emergency department today with a chief complaint of shortness of breath. He is short of breath at night when he lays down to go to bed. He is not having any chest pain. No shortness of breath at rest. He was not having shortness of breath when
he was discharged home from the hospital. It has slowly gotten worse while laying down at night for the past 5 days. The patient had a recent admission from 06/08 - 05/2025 with acute on chronic HFpEF. He was also found to have new onset atrial
fibrillation. A BAKARI was performed on 06/10/2025 which demonstrated a large thrombus in the MAICOL, occupying most of the MAICOL. He also had an mobile echodensity in RA at the junction of SVC also suspicious for thrombus. The plan was to continue
uninterrupted anticoagulation for 4 weeks and then to return for BAKARI guided DCCV if applicable.
Past Medical History
Past Medical History: Arrhythmias (Persistent atrial fibrillation), CHF, HTN and Valvular Disease (aortic stenosis, mitral regurgitation)
Past Surgical History: Tonsilectomy
Social History
Tobacco: Former Smoker
Alcohol: None
Drug: None
Employment: Retired
Family History
Family History: Reviewed & Not Pertinent
Allergies / Home Medications
Allergy/AdvReac Type Severity Reaction Status Date / Time
No Known Allergies Allergy Verified 06/21/25 14:00
�Medication �Instructions �Recorded �Confirmed �Type
finasteride 5 mg tablet 5 mg PO QPM Urinary Issue 12/19/23 06/21/25 History
omega 6-vdg-kew-fish oil 1,000 mg 1 cap PO BID Supplement 12/19/23 06/21/25 History
(120 mg-180 mg) capsule (Fish Oil)
saw palmetto 500 mg capsule 500 mg PO BID Supplement 12/19/23 06/21/25 History
dapagliflozin propanediol 10 mg 10 mg PO QPM Heart Failure 06/08/25 06/21/25 History
tablet (Farxiga)
mirabegron 50 mg tablet,extended 50 mg PO QPM Urinary Issue 06/08/25 06/21/25 History
release 24 hr (Myrbetriq)
apixaban 5 mg tablet (Eliquis) 5 mg PO BID 90 days #180 tabs 06/10/25 06/21/25 Rx
folic acid 1 mg tablet 1 mg PO DAILY 30 days #30 tabs 06/10/25 06/21/25 Rx
metoprolol succinate 25 mg 25 mg PO DAILY 30 days #30 tabs 06/10/25 06/21/25 Rx
tablet,extended release 24 hr
thiamine mononitrate (vit B1) 100 100 mg PO DAILY 30 days #30 tabs 06/10/25 06/21/25 Rx
mg tablet
Prevagen 1 cap PO DAILY 06/21/25 06/21/25 History
furosemide 40 mg tablet 40 mg PO QPM 06/21/25 06/21/25 History
spironolactone 25 mg tablet 12.5 mg PO QPM 06/21/25 06/21/25 History
therapeutic multivitamin 1 tab PO DAILY 06/21/25 06/21/25 History
vit B complex and 500 tab PO DAILY 06/21/25 06/21/25 History
P-iepjecv-pcjbqmcj-bioflavonoid,lemon
500 mg tablet (Lipo-Flavonoid)
vitamins A,C,F-dxmv-rnxrhp 2,148 1 tab PO BID 06/21/25 06/21/25 History
mcg-113 mg-45 mg-17.4 mg tablet
(PreserVision AREDS)
Review of Systems
-
History Source: Patient
Constitutional: Fatigue
EENT: No Symptoms
Respiratory: Trouble Breathing
Cardiac: No Symptoms
Abdomen/GI: No Symptoms
: No Symptoms
Musculoskeletal: No Symptoms
Skin: No Symptoms
Neurological: No Symptoms
Endocrine: No Symptoms
Hematologic/Lymphatic: No Symptoms
Physical Exam
Vital Signs
Temp Pulse Resp BP Pulse Ox
98.1 F 62 15 121/66 95
06/21/25 13:58 06/21/25 15:30 06/21/25 15:30 06/21/25 15:00 06/21/25 15:30
Lab Results
06/21/25 15:55
06/21/25 15:55
Troponin I 0.142 ng/ml H* 06/21/25 15:55
Lkb-E-Lyltgcxglad Pept 7130 pg/ml 06/21/25 15:55
Physical Exam
General: Well Developed, Well Nourished, No Apparent Distress and Comfortable
HEENT: Normocephalic
Respiratory: Clear and Non Labored Respirations
Cardiac: S1/S2, Irregular Rhythm and Peripheral Edema (+1 LE)
Breast: Deferred by me
GI: Soft, Non Tender, Non Distended and Normal Bowel Sounds
Rectal: Deferred by Provider
Genito-urinary: No Costovertebral Tender
Musculoskeletal: No Clubbing and No Cyanosis
Skin: Warm and Dry
Neuro: Awake and Alert
Hematologic/Lymphatic: No Lymphadenopathy
Psych: Calm
Impression / Plan
-
I/P: 80M with HFpEF, aortic stenosis, mitral regurgitation, persistent atrial fibrillation, MAICOL thrombus (seen on BAKARI 06/10/2025), hypertension, and RBBB presented to the emergency department today with a chief complaint of shortness of breath.
Primary block sealer: Dr. Garber
HFpEF, acute on chronic - severe requiring hospitalization
- Orthopnea with elevated proBNP, await CXR, he had a moderate pleural effusion last admission
- Diuresis with furosemide 40 mg IV twice daily, this requires intensive monitoring
- He may require additional furosemide while he is in atrial fibrillation
- Continue Farxiga 10 mg daily and spironolactone 12.5 mg daily
- Trend daily weight, I's/O, BMP with diuresis
- Heart failure education
MAICOL thrombus
- Seen on BAKARI 06/10/2025, continue apixaban
Abnormal troponin, likely nonischemic myocardial injury in the setting of acute HFpEF and persistent atrial arrhythmia
- Troponin 0.142, trend to peak
- Chest pain-free
Atrial fibrillation, persistent
- Symptomatic with fatigue
- The plan is for rate control short term with uninterrupted anticoagulation for 4 weeks then BAKARI guided DCCV (after 07/08/2025, that would be 4 weeks of uninterrupted therapy)
- Oral Anticoagulation: Apixaban 5 mg twice daily, he denies missed doses, he denies abnormal bleeding (age 80, creatinine 0.9, weight >60 kg)
- [id number]: Score at least 4 (Heart failure, HTN, age 75 or more)
Valvular heart disease
- BAKARI with mild mitral regurgitation, mild aortic regurgitation, and moderate aortic stenosis
- Full echocardiogram after sinus rhythm was restored
Hypertension, chronic and stable on current medical therapy
Former smoker, continue cessation recommended
Data Reviewed
-
EKG: Report Reviewed by me
Medical Tests (Nuc Med, Echo etc): Report Reviewed by me
Labs: Labs Reviewed by me
Old Records: Reviewed
--- NOTE | 2025-06-21 18:01 | HPS.HSE ---
Family Physician
-
Family Physician: MARGIE Rivera
Chief Complaint
-
Shortness of breath
History of Present Illness
Patient returns back with progressive shortness of breath. He was here in the hospital beginning of this month where he was discovered with new atrial fibrillation and LA thrombus. He also had the heart failure at that point.
Upon return home he says he was doing okay but the last for 5 days he has started to have progressive shortness of breath especially with exertion. He was also feeling short of breath with lying down. He did not see much of lower extremity
swelling. He does not think he gained weight but his weight has gone up by 17 pounds when checked in the ER today. He says he is compliant with the medication and dietary discretions.
Denies any chest pain. No palpitation.
Denies any shortness of breath at rest
No fever chills.
No nausea vomiting.
Medical History
Past Medical History
Past Medical History: Reports CHF and Other (BPH on Fenesteride )
Past Surgical History: Reports None
Social History
Tobacco: Former Smoker (50 yrs ago )
Alcohol: Daily (a aglass of vodka or wine)
Personal:
Living: With Family
Family History
Family History: Not pertinent
Allergies / Home Medications
Allergies reflects when Allergies were last updated in [facility].
Home Medications with original date entered in [facility]
Allergy/Medication List:
Allergies
Allergy/AdvReac Type Severity Reaction Status Date / Time
No Known Allergies Allergy Unverified 12/19/23 17:41
Home Medications (not confirmed)
finasteride 5 mg tablet 5 mg PO QPM Urinary Issue 12/19/23
iodine (kelp) 0.15 mg tablet (Kelp) 0.15 mcg PO BID Supplement 12/19/23
multivitamin 1 tab PO DAILY Supplement 12/19/23
omega 0-yck-hqf-fish oil 1,000 mg (120 mg-180 mg) capsule (Fish Oil) 1 cap PO BID Supplement 12/19/23
saw palmetto 500 mg capsule 500 mg PO BID Supplement 12/19/23
vit C 250 mg-vit E 90 mg-zinc 40 mg-copper 1 kc-aucsbi-lzkvap capsule (PreserVision AREDS-2) 1 tab PO BID Supplement 12/19/23
dapagliflozin propanediol 10 mg tablet (Farxiga) 10 mg PO DAILY #30 tabs 12/21/23
furosemide 20 mg tablet (Lasix) 20 mg PO DAILY #30 tabs 12/21/23
spironolactone 25 mg tablet 12.5 mg (1/2 x 25 mg) PO DAILY #30 tabs 12/21/23
Review of Systems
-
A 12 point ROS was completed and negative except as noted: Yes
Physical Exam
Vital Signs
Vital Signs
Temp Pulse Resp BP Pulse Ox
98.1 F 61 17 121/66 92
06/21/25 13:58 06/21/25 17:15 06/21/25 17:15 06/21/25 15:00 06/21/25 17:15
Physical Exam
General: No Apparent Distress
HEENT: Moist mucous membranes
Respiratory: Crackles (Bibasilar crackles) and Non Labored Respirations; No Accessory Resp Muscle Use
Cardiac: S1/S2, Irregular Rhythm and JVD; No Tachycardia
GI: Soft and Non Tender
Musculoskeletal: Edema, Left Lower Extremity (1+) and Edema, Right Lower Extremity (1+)
Neuro: AO x 3
Psych: Calm
Laboratory Results
-
06/21/25 15:55
06/21/25 15:55
Laboratory Results
PT 16.7 Sec (11.4-14.6) H 06/21/25 15:55
INR 1.33 06/21/25 15:55
APTT 31.7 Sec (23.4-35.0) 06/21/25 15:55
Total Bilirubin 1.0 mg/dl (0.2-1.3) 06/21/25 15:55
AST 30 U/L (17-59) 06/21/25 15:55
ALT 38 U/L (0-50) 06/21/25 15:55
Alkaline Phosphatase 72 U/L (38-126) 06/21/25 15:55
Troponin I 0.142 ng/ml H* 06/21/25 15:55
Data Reviewed
-
Lab Data: Labs Reviewed by me
Impression/Plan
-
Acute on chronic diastolic CHF Exacerbation:
- Admit to tele
- Start on IV Lasix 40mg BID
- I's and O's and daily weights
- Consulted cardiology
- Most recent BAKARI normal LV function , mod , large thrombus in MAICOL, mobile echodensity in RA at junction of SVC
- cw Farxiga , Spironolactone
- Chest x-ray pending
Persistent A-fib
- Currently rate controlled with Toprol-XL 25 mg daily
- CW with Eliquis
- Follow on tele
MAICOL thrombus - cw eliquis
Moderate
Elevated troponin
No chest pain
Suspect non ischemic myocardial injury
EKG shows no ischemic changes.
Monitor troponin.
Follow on tele
Benign prostatic hyperplasia
Continue finasteride
CODE STATUS: Full code
DVT prophylaxis: Eliquis
Diet: cardiac diet
[2025-06-21] MEDS: LASIX 40 MG IV (18:09)
[2025-06-21 18:12] VITALS: BP 131/88
[2025-06-21 19:00] VITALS: BP 146/78
--- NOTE | 2025-06-21 19:36 | PTCARENOTE ---
Pt received [facility] to [facility] Pt oriented to room and call piña.
[2025-06-21 19:55] VITALS: BP 124/71; BMI 26.5
[2025-06-21] MEDS: MYRBETRIQ EXTENDED RELEASE 50 MG PO (20:24)
[2025-06-21] MEDS: FARXIGA 10 MG PO (20:24)
[2025-06-21] MEDS: ALDACTONE 12.5 MG PO (20:24)
[2025-06-21] MEDS: PROSCAR 5 MG PO (20:25)
[2025-06-21] MEDS: ELIQUIS 5 MG PO (20:25)
[2025-06-21 20:41] VITALS: BMI 26.5
[2025-06-21 23:02] LABS: Troponin I 0.155 ng/ml
[2025-06-21 23:06] VITALS: BP 104/59
[2025-06-22 03:03] VITALS: BP 111/62
[2025-06-22 03:25] VITALS: BP 114/70
[2025-06-22 05:35] LABS: Blood Urea Nitrogen 26 mg/dl (9-20); Calcium 9.5 mg/dl (8.4-10.2); Carbon Dioxide 27 mmol/L (22-30); Chloride 105 mmol/L (98-107); Estimated Creatinine Clearance 49 ml/min; Glucose 107 mg/dl (70-99); Potassium 4.5 mmol/L (3.5-5.1); Sodium 139 mmol/L (135-145); eGFR > 60.00
[2025-06-22 05:48] LABS: Troponin I 0.218 ng/ml
[2025-06-22 07:30] VITALS: BP 132/75
--- NOTE | 2025-06-22 07:56 | W.PN.CD ---
Addendum entered and electronically signed by William Menon MD 06/22/25 11:25:
I saw and examined the patient.
The EMPLOYEE SERVICE OFFICER's note was reviewed and I agree with the note.
Patient is feeling significantly better. Heart failure improving but weight is still significantly up compared to last admission. Patient also with significant left pleural effusion which seems similar to previous hospitalization.
- Would favor additional IV diuresis with close monitoring of weights and renal function. Would like to get weight closer to previous discharge where weight.
- Follow-up chest x-ray towards end of hospitalization to reassess pleural effusion. Need to consider thoracentesis but I would like to avoid procedures that require patient to stop his anticoagulation since he has known thrombus.
Original Note:
Today's Communication / Plan
-
Continue diuresis
Impression / Plan
-
I/P: 80M with HFpEF, aortic stenosis, mitral regurgitation, persistent atrial fibrillation, MAICOL thrombus (seen on BAKARI 06/10/2025), hypertension, and RBBB presented to the emergency department today with a chief complaint of shortness of breath.
Primary substitute bus driver: Dr. Garber
HFpEF, acute on chronic - severe requiring hospitalization
- Orthopnea with elevated proBNP, CXR still with pleural effusion
- Diuresis with furosemide 40 mg IV twice daily, this requires intensive monitoring
- Discharge weight was 64.9kg, this is the goal weight
- He may require additional standing furosemide at home while he is in atrial fibrillation
- Continue Farxiga 10 mg daily and spironolactone 12.5 mg daily
- Trend daily weight, I's/O, BMP with diuresis
- Heart failure education
MAICOL thrombus
- Large, seen on BAKARI 06/10/2025, continue apixaban
Abnormal troponin, likely nonischemic myocardial injury in the setting of acute HFpEF and persistent atrial arrhythmia
- Troponin currently 0.218, trend to peak
- Chest pain-free
Atrial fibrillation, persistent
- Symptomatic with fatigue
- The plan is for rate control short term with uninterrupted anticoagulation for 4 weeks then BAKARI guided DCCV (after 07/08/2025, that would be 4 weeks of uninterrupted therapy)
- Oral Anticoagulation: Apixaban 5 mg twice daily, he denies missed doses, he denies abnormal bleeding (age 80, creatinine 0.9, weight >60 kg)
- [id number]: Score at least 4 (Heart failure, HTN, age 75 or more)
Valvular heart disease
- BAKARI with mild mitral regurgitation, mild aortic regurgitation, and moderate aortic stenosis
- Full echocardiogram after sinus rhythm was restored
Hypertension, chronic and stable on current medical therapy
Former smoker, continue cessation recommended
SUBJECTIVE:
Breathing slightly improved. No chest pain.
Physical Exam
Vital Signs/Labs
Vital Signs
Temp Pulse Resp BP Pulse Ox
97.6 F 58 18 111/62 96
06/22/25 03:03 06/22/25 03:03 06/22/25 03:03 06/22/25 03:03 06/22/25 03:03
06/21/25 06/22/25 06/23/25
06:59 06:59 06:59
Actual Weight 70.108 kg
06/21/25 15:55
06/22/25 04:47
PT 16.7 Sec (11.4-14.6) H 06/21/25 15:55
INR 1.33 06/21/25 15:55
APTT 31.7 Sec (23.4-35.0) 06/21/25 15:55
Magnesium 2.6 mg/dl (1.6-2.3) H 06/21/25 15:55
06/21/25
15:55
Sqy-W-Zphqkvuyhcr Pept 7130
LAB Results
06/21/25 06/21/25 06/21/25
15:55 18:45 19:42
Troponin I 0.142 H* Cancelled Cancelled
06/21/25 06/22/25
22:20 04:47
Troponin I 0.155 H* 0.218 H* D
Physical Exam
Constitutional: No acute distress and Comfortable
EENT: Anicteric and Moist mucous membranes
Cardiovascular: Rhythm/rate is irregular, Pedal edema present (now trace) and S1S2 is normal
Respiratory: Respiratory effort normal and Crackles Present
GI: Soft, Distention absent, Flat and Non tender
Neuro/Psych: Alert and Oriented
Other: Skin (warm and dry)
Data Reviewed
-
Date of Service: June 22, 2025
EKG: Report Reviewed by me
Labs: Labs Reviewed by me
Old Records: Reviewed
[2025-06-22] MEDS: FOLVITE 1 MG PO (08:03)
[2025-06-22] MEDS: VITAMIN B1 100 MG PO (08:03)
[2025-06-22] MEDS: TOPROL XL 25 MG PO (08:03)
[2025-06-22] MEDS: ELIQUIS 5 MG PO ×2 (08:03→19:51)
[2025-06-22] MEDS: LASIX 40 MG IV ×2 (08:04→17:13)
[2025-06-22 11:20] LABS: Troponin I 0.167 ng/ml
[2025-06-22 11:25] VITALS: BP 117/67
--- NOTE | 2025-06-22 13:24 | W.PN.HOSP.TC ---
Today's Communication/Plan
-
Continue with IV Lasix
Assessment / Plan
Assessment / Plan
Acute on chronic diastolic CHF Exacerbation:
- Feeling better, weight is down. Remains on room air.
- Continue IV Lasix 40mg BID
- I's and O's and daily weights
- Appreciate cardiology input
- Most recent BAKARI normal LV function , mod , large thrombus in MAICOL, mobile echodensity in RA at junction of SVC
- cw Farxiga , Spironolactone
- Chest x-ray shows small left pleural effusion as before. Continue to follow with diuresis.
Persistent A-fib
- Currently rate controlled with Toprol-XL 25 mg daily
- CW with Eliquis
- Follow on tele
MAICOL thrombus - cw eliquis
Moderate
Elevated troponin
Remains chest pain free
Suspect non ischemic myocardial injury
EKG shows no ischemic changes.
Follow on tele
Benign prostatic hyperplasia
Continue finasteride
CODE STATUS: Full code
DVT prophylaxis: Eliquis
Diet: cardiac diet
Anticipated Discharge: 24 - 48 hours
Subjective/Interval History
-
Date of Service: June 22, 2025
Feeling improved with the breathing.
Denies any chest pain or palpitations.
No nausea vomiting.
No dizziness.
Objective Data
-
Labs:
Laboratory Results
06/22/25
04:47
Sodium 139
Potassium 4.5
Chloride 105
Carbon Dioxide 27
BUN 26 H
Creatinine 1.0
Glucose 107 H
Calcium 9.5
Vital Signs:
Vital Signs
Temp Pulse Resp BP Pulse Ox
98.3 F 63 18 117/67 98
06/22/25 11:25 06/22/25 11:25 06/22/25 11:25 06/22/25 11:25 06/22/25 11:25
I&O
06/21/25 06/22/25 06/23/25
06:59 06:59 06:59
Intake Total 240 / 240
Output Total 1100 / 1100
Balance -860 / -860
Physical Exam
-
General: Comfortable
Respiratory: Crackles (few bibasilar crackles) and Non Labored Respirations; Negative Wheezes or Accessory Resp Muscle Use
Cardiac: S1/S2 and Irregular Rhythm; Negative Tachycardic
Neuro: AO x 3
Psych: Calm
Data Reviewed
-
Labs: Labs Reviewed by me
--- NOTE | 2025-06-22 15:05 | CM ---
fiscal services manager reviewed patient's chart and met with patient and patient lives alone in a one story home with one step to enter, patient reports he is independent with adl's and ambulation, no dme, patient drives, home when stable, no needs.
PCP: Dina Wisdom
Pharmacy: [facility]
[2025-06-22] MEDS: MYRBETRIQ EXTENDED RELEASE 50 MG PO (17:14)
[2025-06-22] MEDS: FARXIGA 10 MG PO (17:14)
[2025-06-22] MEDS: PROSCAR 5 MG PO (17:15)
[2025-06-22] MEDS: ALDACTONE 12.5 MG PO (17:15)
[2025-06-22 19:45] VITALS: BP 104/61
[2025-06-23] VITALS (9 sets, daily range): BP systolic 102–139; BP diastolic 59–78; PULSE 54–62; O2SAT 97; BMI 24.8
[2025-06-23 06:55] LABS: Blood Urea Nitrogen 25 mg/dl (9-20); Calcium 9.3 mg/dl (8.4-10.2); Carbon Dioxide 31 mmol/L (22-30); Chloride 101 mmol/L (98-107); Estimated Creatinine Clearance 44 ml/min; Glucose 104 mg/dl (70-99); Potassium 4.0 mmol/L (3.5-5.1); Sodium 138 mmol/L (135-145); eGFR > 60.00
[2025-06-23] MEDS: VITAMIN B1 100 MG PO (09:25)
[2025-06-23] MEDS: TOPROL XL 25 MG PO (09:25)
[2025-06-23] MEDS: LASIX 40 MG IV ×2 (09:25→17:14)
[2025-06-23] MEDS: FOLVITE 1 MG PO (09:25)
[2025-06-23] MEDS: ELIQUIS 5 MG PO ×2 (09:25→20:23)
--- NOTE | 2025-06-23 10:20 | W.PN.CD ---
Today's Communication / Plan
-
Overall patient feels better. Breathing back to baseline. Weight appears similar to previous discharge weight.
Reviewed with Dr. Dunham.
Follow-up chest x-ray to reassess pleural effusion
Reasonable to transition from IV Lasix to oral. Would change to Lasix 40 mg twice daily in addition spironolactone increased to 25 mg daily
Postdischarge will need renal profile once a week for 3 weeks.
Patient already has a visit scheduled in our office for 06/24/2025 if he is discharged today and he is feeling well tomorrow then he can call the office to adjust the timing of his visit.
Impression / Plan
-
I/P: 80M with HFpEF, aortic stenosis, mitral regurgitation, persistent atrial fibrillation, MAICOL thrombus (seen on BAKARI 06/10/2025), hypertension, and RBBB presented to the emergency department today with a chief complaint of shortness of breath.
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
HFpEF, acute on chronic - severe requiring hospitalization
- Orthopnea with elevated proBNP, CXR still with pleural effusion
- Chest x-ray to reassess pleural effusion
- Weights have come down to level which appears to be consistent with his baseline. Would transition to oral diuretic Lasix 40 mg p.o. twice daily and increase spironolactone to 25 mg a day. Patient will need follow-up labs once a week for 3 weeks
- Continue Farxiga 10 mg daily .
MAICOL thrombus
- Large, seen on BAKARI 06/10/2025, continue apixaban
Abnormal troponin, likely nonischemic myocardial injury in the setting of acute HFpEF and persistent atrial arrhythmia
- Troponin currently 0.218, trend to peak
- Chest pain-free
Atrial fibrillation, persistent
- Symptomatic with fatigue
- The plan is for rate control short term with uninterrupted anticoagulation for 4 weeks then BAKARI guided DCCV (after 07/08/2025, that would be 4 weeks of uninterrupted therapy)
- Oral Anticoagulation: Apixaban 5 mg twice daily, he denies missed doses, he denies abnormal bleeding (age 80, creatinine 0.9, weight >60 kg)
- [id number]: Score at least 4 (Heart failure, HTN, age 75 or more)
Valvular heart disease
- BAKARI with mild mitral regurgitation, mild aortic regurgitation, and moderate aortic stenosis
- Full echocardiogram after sinus rhythm was restored
Hypertension, chronic and stable on current medical therapy
Former smoker, continue cessation recommended
SUBJECTIVE:
Breathing slightly improved. No chest pain.
Physical Exam
Vital Signs/Labs
Vital Signs
Temp Pulse Resp BP Pulse Ox
97.5 F 68 16 128/71 94
06/23/25 07:05 06/23/25 09:25 06/23/25 07:05 06/23/25 07:05 06/23/25 07:05
06/22/25 06/23/25 06/24/25
06:59 06:59 06:59
Actual Weight 70.108 kg 65.969 kg
06/21/25 15:55
06/23/25 05:44
PT 16.7 Sec (11.4-14.6) H 06/21/25 15:55
INR 1.33 06/21/25 15:55
APTT 31.7 Sec (23.4-35.0) 06/21/25 15:55
Magnesium 2.6 mg/dl (1.6-2.3) H 06/21/25 15:55
06/21/25
15:55
Yat-U-Vuomljntrez Pept 7130
LAB Results
06/21/25 06/21/25 06/21/25
15:55 18:45 19:42
Troponin I 0.142 H* Cancelled Cancelled
06/21/25 06/22/25 06/22/25
22:20 04:47 10:41
Troponin I 0.155 H* 0.218 H* D 0.167 H*
Physical Exam
Constitutional: No acute distress
Cardiovascular: Rhythm/rate is irregular
Respiratory: Wheeze Absent and Rhonchi Absent
GI: Soft and Non tender
Neuro/Psych: Alert and AO x 3
Other: Skin
Data Reviewed
-
Date of Service: June 23, 2025
Medical Decision Making: Reviewed Test Results
X-Ray/CT/US/MRI/NUC/PET: Report Reviewed by me
Medical Tests (PFT, Pathology etc): Report Reviewed by me
Labs: Labs Reviewed by me
--- NOTE | 2025-06-23 10:43 | W.PN.HOSP.TC ---
Today's Communication/Plan
-
Chest x-ray today
DC planning
Assessment / Plan
Assessment / Plan
Acute on chronic diastolic CHF Exacerbation:
- Feeling better, weight is down close to his baseline-145 pounds today, 143 pounds when he left 2 weeks ago. Remains on room air.
- Continue diuresis per cardiology.
- I's and O's and daily weights
- Appreciate cardiology input
- Most recent BAKARI normal LV function , mod , large thrombus in MAICOL, mobile echodensity in RA at junction of SVC
- cw Farxiga , Spironolactone
- Chest x-ray shows small left pleural effusion as before. Continue to follow with diuresis-repeat today.
Persistent A-fib
- Currently rate controlled with Toprol-XL 25 mg daily
- CW with Eliquis
- Follow on tele
MAICOL thrombus - cw eliquis
Moderate
Elevated troponin
Remains chest pain free
Suspect non ischemic myocardial injury
EKG shows no ischemic changes.
Follow on tele
Benign prostatic hyperplasia
Continue finasteride
CODE STATUS: Full code
DVT prophylaxis: Eliquis
Diet: cardiac diet
Patient states that with prostate issues he normally has increased frequency and with Lasix he was encountering significant frequency and was coming in the way of his life during the day so in fact he was taking Lasix in the evening. He thinks
taking twice a day would come in his way of life. He says he will be diligent with checking weight every day and goes more than 3 pounds in a day or 5 pounds in a week he will double the dose otherwise would prefer to use once a day. Since he is
back to his baseline weight we will send in on once a day
Anticipated Discharge: Today
Subjective/Interval History
-
Date of Service: June 23, 2025
Feels much better with the breathing. Denies any shortness of breath. No chest pain. No palpitation. Remains on room air. No dizziness.
Objective Data
-
Labs:
Laboratory Results
06/23/25
05:44
Sodium 138
Potassium 4.0
Chloride 101
Carbon Dioxide 31 H
BUN 25 H
Creatinine 1.1
Glucose 104 H
Calcium 9.3
Vital Signs:
Vital Signs
Temp Pulse Resp BP Pulse Ox
97.5 F 68 16 128/71 94
06/23/25 07:05 06/23/25 09:25 06/23/25 07:05 06/23/25 07:05 06/23/25 07:05
I&O
06/22/25 06/23/25 06/24/25
06:59 06:59 06:59
Intake Total 240 / 240 0 / 0
Output Total 1100 / 1100 2099 / 2099
Balance -860 / -860 -2099 / -2099
Physical Exam
-
General: Comfortable
Respiratory: Non Labored Respirations and Decreased Breath Sounds (Left base); Negative Wheezes, Crackles or Accessory Resp Muscle Use
Cardiac: S1/S2 and Irregular Rhythm; Negative Tachycardic
Neuro: AO x 3
Psych: Calm; Negative Confused
Data Reviewed
-
Labs: Labs Reviewed by me
[2025-06-23] MEDS: FARXIGA 10 MG PO (18:06)
[2025-06-23] MEDS: PROSCAR 5 MG PO (18:06)
[2025-06-23] MEDS: MYRBETRIQ EXTENDED RELEASE 50 MG PO (18:06)
[2025-06-23] MEDS: ALDACTONE 25 MG PO (18:06)
[2025-06-23 18:21] LABS: LDH 198 U/L (120-246); Total Protein 7.1 g/dl (6.3-8.2)
[2025-06-24 03:00] VITALS: BP 98/61
[2025-06-24 05:55] VITALS: BMI 24.3
[2025-06-24 07:08] LABS: Blood Urea Nitrogen 26 mg/dl (9-20); Calcium 9.3 mg/dl (8.4-10.2); Carbon Dioxide 30 mmol/L (22-30); Chloride 101 mmol/L (98-107); Estimated Creatinine Clearance 44 ml/min; Glucose 109 mg/dl (70-99); Potassium 3.9 mmol/L (3.5-5.1); Sodium 138 mmol/L (135-145); eGFR > 60.00
[2025-06-24 07:30] VITALS: BP 126/65
[2025-06-24] MEDS: FOLVITE 1 MG PO (08:17)
[2025-06-24] MEDS: ELIQUIS 5 MG PO (08:18)
[2025-06-24] MEDS: LASIX 40 MG IV (08:18)
[2025-06-24] MEDS: VITAMIN B1 100 MG PO (08:18)
[2025-06-24] MEDS: TOPROL XL 25 MG PO (08:18)
[2025-06-24 10:00] VITALS: BP 134/80; BP_SYST 64
--- NOTE | 2025-06-24 10:03 | W.PN.CD ---
Addendum entered and electronically signed by Henrique Hdz MD 06/24/25 14:30:
I saw and examined the patient.
The FURNACE ROASTER's note was reviewed and I agree with the note.
Comment:
80-year-old man with HFpEF, persistent atrial fibrillation with left atrial appendage thrombus, and hypertension who presented for shortness of breath, being treated for acute on chronic CHF exacerbation. He underwent left-sided thoracentesis this
morning and is feeling improved.
Physical exam notable for a regular rate and rhythm, crackles at the left lung base, and no lower extremity edema
For his acute on chronic HFpEF, we will plan to discharge him on Lasix 40 mg p.o. twice daily and spironolactone 25 mg daily. Continue Farxiga 10 mg daily. Weekly BMP x 3 weeks.
For his persistent atrial fibrillation, plan is for rate control short-term with uninterrupted anticoagulation for 4 weeks then BAKARI guided DCCV (after 07/08/2025). Continue apixaban 5 mg twice daily.
Original Note:
Today's Communication / Plan
-
Will transition to PO lasix (40 mg PO BID) and continue increased spironolactone. Needs OP lab monitoring- will send electronically. Follow-up in our office is arranged. Repeat BAKARI as OP to be set up after d/c.
Impression / Plan
-
I/P: 80M with HFpEF, aortic stenosis, mitral regurgitation, persistent atrial fibrillation, MAICOL thrombus (seen on BAKARI 06/10/2025), hypertension, and RBBB presented to the emergency department today with a chief complaint of shortness of breath.
Primary tipple operator: Dr. Garber
HFpEF, acute on chronic:
-improved. Weight down.
-Chest x-ray yesterday with moderate left pleural effusion and he is now immediately s/p thoracentesis for 1.1 L per report.
-d/c regimen recommendation: Lasix 40 mg p.o. twice daily and spironolactone 25 mg a day. Patient will need follow-up labs (renal profile) once a week for 3 weeks.
-Continue Farxiga 10 mg daily
MAICOL thrombus
-Large, seen on BAKARI 06/10/2025, continue apixaban
-repeat BAKARI around 4 weeks (see below)
Abnormal troponin:
-likely nonischemic myocardial injury in the setting of acute HFpEF and persistent atrial arrhythmia
Atrial fibrillation, persistent
- Symptomatic with fatigue
- The plan is for rate control short term with uninterrupted anticoagulation for 4 weeks then BAKARI guided DCCV (after 07/08/2025, that would be 4 weeks of uninterrupted therapy)
- Oral Anticoagulation: Apixaban 5 mg twice daily, he denies missed doses, he denies abnormal bleeding (age 80, creatinine 0.9, weight >60 kg)
- [id number]: Score at least 4 (Heart failure, HTN, age 75 or more)
Valvular heart disease:
- BAKARI with mild mitral regurgitation, mild aortic regurgitation, and moderate aortic stenosis
- Full echocardiogram after sinus rhythm restored
Hypertension, chronic and stable on current medical therapy
Former smoker, continue cessation recommended
Physical Exam
Vital Signs/Labs
Vital Signs
Temp Pulse Resp BP Pulse Ox
97.6 F 63 16 126/65 96
06/24/25 07:30 06/24/25 07:30 06/24/25 07:30 06/24/25 07:30 06/24/25 07:30
06/23/25 06/24/25 06/25/25
06:59 06:59 06:59
Actual Weight 65.969 kg 64.501 kg
06/21/25 15:55
06/24/25 05:51
PT 16.7 Sec (11.4-14.6) H 06/21/25 15:55
INR 1.33 06/21/25 15:55
APTT 31.7 Sec (23.4-35.0) 06/21/25 15:55
Magnesium 2.6 mg/dl (1.6-2.3) H 06/21/25 15:55
06/21/25
15:55
Edu-Y-Urlixvqmvos Pept 7130
LAB Results
06/21/25 06/21/25 06/21/25
15:55 18:45 19:42
Troponin I 0.142 H* Cancelled Cancelled
06/21/25 06/22/25 06/22/25
22:20 04:47 10:41
Troponin I 0.155 H* 0.218 H* D 0.167 H*
Physical Exam
Constitutional: No acute distress
EENT: Anicteric
Cardiovascular: Rhythm & rate is regular
Respiratory: Respiratory effort normal and Lungs clear to auscul.
Neuro/Psych: AO x 3
Data Reviewed
-
Date of Service: June 24, 2025
EKG: Other (AFIB, rate-controlled)
Labs: Labs Reviewed by me
[2025-06-24 10:48] VITALS: BP 121/71
[2025-06-24 11:36] VITALS: BP 109/53
--- NOTE | 2025-06-24 12:22 | W.PN.HOSP.TC ---
Today's Communication/Plan
-
Goal-directed medical therapy
Diuresis per cardiology
Follow-up on the fluid culture
Incentive spirometer
Start disposition planning
Assessment / Plan
Assessment / Plan
Acute on chronic diastolic CHF Exacerbation:
- Feeling better, weight is down close to his baseline-145 pounds today, 143 pounds when he left 2 weeks ago. Remains on room air.
- Continue diuresis per cardiology.
- I's and O's and daily weights
- Appreciate cardiology input
- Most recent BAKARI normal LV function , mod , large thrombus in MAICOL, mobile echodensity in RA at junction of SVC
- cw Farxiga , Spironolactone
- Lasix per cardiology on discharge.
Pleural effusion likely transudative in the setting of heart failure exacerbation
- Status post 1150 cc fluid removed
-fluid culture in lab.
-pH elevated. doubt infection. Incentive spirometer ordered
Persistent A-fib
- Currently rate controlled with Toprol-XL 25 mg daily
- CW with Eliquis
- Follow on tele
MAICOL thrombus - cw eliquis
Moderate
Elevated troponin
Remains chest pain free
Suspect non ischemic myocardial injury
EKG shows no ischemic changes.
Follow on tele
Benign prostatic hyperplasia
Continue finasteride
CODE STATUS: Full code
DVT prophylaxis: Eliquis
PT eval
Anticipated Discharge: Within 24 hours
Subjective/Interval History
-
Date of Service: June 24, 2025
States of dry cough
Objective Data
-
Labs:
Laboratory Results
06/24/25
05:51
Sodium 138
Potassium 3.9
Chloride 101
Carbon Dioxide 30
BUN 26 H
Creatinine 1.1
Glucose 109 H
Calcium 9.3
Vital Signs:
Vital Signs
Temp Pulse Resp BP Pulse Ox
98.9 F 69 18 109/53 96
06/24/25 11:36 06/24/25 11:36 06/24/25 11:36 06/24/25 11:36 06/24/25 11:36
I&O
06/23/25 06/24/25 06/25/25
06:59 06:59 06:59
Intake Total 0 / 0 420 / 420
Output Total 2099 3075 / 3075
Balance -2099 / -2654 / -2654
Physical Exam
-
General: Well Developed, Well Nourished, No Apparent Distress and Comfortable
HEENT: Normocephalic, Atraumatic, Moist Mucous Membranes, Anicteric, Nose Appears Normal and Ears Appear Normal
Respiratory: Non Labored Respirations; Negative Wheezes, Crackles or Accessory Resp Muscle Use
Cardiac: S1/S2; Negative Tachycardic
GI: Nondistended
Neuro: Awake, Alert, Oriented, AO x 3 and No Motor Deficits; Negative Slurred Speech or Facial Droop
Psych: Calm; Negative Confused
--- NOTE | 2025-06-24 14:19 | CM ---
Addendum entered by Zoe Thompson 06/24/25 15:24:
Patient feeling better and would like to d/c home today
Met w/ patient bedside, his granddaughter will transport home
IMM verbally reviewed, copy provided, copy on chart
No CM needs
Plan: Home today, no needs
Original Note:
Chart reviewed. Will transition to PO Lasix
No CM needs at this time
Plan: Poss home tomorrow, no needs
[2025-06-24 15:35] VITALS: BP 118/69
[2025-06-24] MEDS: LASIX 40 MG PO (15:54)
--- NOTE | 2025-06-25 07:09 | W.DCSUMMARY ---
Discharge Summary
Discharge Data
Date of Admission: 06/21/25
Date of Discharge: 06/24/25
-
Pending Results: No
Hospital Course
80-year-old male past medical history of aortic stenosis, BPH, atrial fibrillation, chronic HFpEF, who is presenting with complaints of shortness of breath. Patient was eval by cardiology. Patient was started on IV diuresis. Patient had recent
outpatient transesophageal echocardiogram done which showed left atrial thrombus. Plan is to continue patient on Eliquis. Patient had mitral regurgitation aortic regurgitation and moderate aortic stenosis which was noted on transesophageal
echocardiogram. Patient with significant improvement with IV diuresis. Chest x-ray also with pleural effusion. Patient underwent thoracentesis via 1150 cc volume removed. Patient felt significantly better postthoracentesis. Fluids were negative
for organism. Cardiology recommended patient to be transition to p.o. Lasix 40 mg twice daily. Aldactone was also added. Patient will follow-up with cardiology as outpatient. Cardiology sent prescription for BMP as outpatient. Patient was eval
by physical therapy and patient be discharged home.
Discharge Plan
-
Patient Disposition: Home (Routine Discharge)
Discharge Diagnosis/Procedures: Acute on chronic diastolic heart failure exacerbation
Pleural effusion status post thoracentesis
Condition: Fair
Diet: 2 Gram Sodium and Restrict fluids to 48 oz
Activity: As tolerated
Driving Restrictions: As prior to admission
Blood Work: Renal profile weekly x 3- sent electronically to [facility]
Specialty Instructions: Weigh Daily- Call MD for wt gain/loss 3 lbs overnight/5 lbs in 1 week
Activity Restrictions/Additional Instructions:
Follow-up pleural effusion cytology results with primary doctor/primary care provider.
Referrals:
Kenyatta Loredo CRNP [Family Provider, Internal Medicine] - in less than 1 week
Marcia Gonzalez CRNP [Specified Professional Personl, Cardiology] - 07/03/25 10:40 am
Prescriptions:
Continued
saw palmetto 500 mg Capsule
500 mg PO BID
finasteride 5 mg tablet
5 mg PO QPM
omega 0-zxz-vtk-fish oil [Fish Oil] 1,000 mg (120 mg-180 mg) Capsule
1 cap PO BID
mirabegron [Myrbetriq] 50 mg tablet extended release 24 hr
50 mg PO QPM
dapagliflozin propanediol [Farxiga] 10 mg tablet
10 mg PO QPM
folic acid 1 mg Tablet
1 mg PO DAILY 30 Days Qty: 30 0RF
Eliquis 5 mg Tablet
5 mg PO BID 90 Days Qty: 180 0RF
metoprolol succinate 25 mg Tablet Extended Release 24 Hr
25 mg PO DAILY 30 Days Qty: 30 0RF
thiamine mononitrate (vit B1) 100 mg Tablet
100 mg PO DAILY 30 Days Qty: 30 0RF
therapeutic multivitamin Tablet
1 tab PO DAILY
PreserVision AREDS 2,148 mcg-113 mg-45 mg-17.4mg Tablet
1 tab PO BID
Lipo-Flavonoid 500 mg Tablet
500 tab PO DAILY
Prevagen
1 cap PO DAILY
Changed
furosemide 40 mg tablet
40 mg PO 0800,1600 30 Days Qty: 60 0RF
spironolactone 25 mg tablet
25 mg PO QPM 30 Days Qty: 30 0RF
Discharge Orders:
Discharge Patient (As Directed); Ordered 06/24/25
Ordered By: Orlin Villarreal
Discharge Date and Time
Discharge Date/Time: 06/24/25 17:31
Print Language: NOR[place]
== END 2025-06-24 17:31 | disposition home or self-care (01) | DRG 291 ==
LOC: 4 WEST ACU 18:16
PROVIDERS: Nurse Practitioner Gerontology; Radiology Diagnostic Radiology; ADMITTING PHYSICIAN Internal Medicine; ATTENDING PHYSICIAN Hospitalist; CONSULT PHYSICIAN Internal Medicine Cardiovascular Disease; EMERGENCY PHYSICIAN Emergency Medicine; FAMILY PHYSICIAN Nurse Practitioner Adult Health
PROC: 0W9B3ZZ Drainage of Left Pleural Cavity, Percutaneous Approach (ICD-10-PCS; 2025-06-24)
DX: I11.0 Hypertensive heart disease with heart failure (principal); I50.33 Acute on chronic diastolic (congestive) heart failure; I48.19 Other persistent atrial fibrillation; N40.0 Benign prostatic hyperplasia without lower urinary tract symptoms; Z79.899 Other long term (current) drug therapy; Z79.01 Long term (current) use of anticoagulants; Z79.84 Long term (current) use of oral hypoglycemic drugs; Z87.891 Personal history of nicotine dependence
CPT/HCPCS: 32555; 71045; 71046; 80048; 80053; 83615; 83735; 83880; 83986; 84155; 84157; 84484; 85025; 85610; 85730; 87015; 87070; 87205; 88112; 88305; 93005; 94760; 96374; 97162; 97166; 99285

== ENCOUNTER 2025-07-17 06:50 | Day surgery (SDC) | payer OTHER, SELFPAY ==
[2025-07-17 08:10] VITALS: BMI 26.4
== END 2025-07-17 10:15 | disposition home or self-care (01) ==
LOC: CATH 06:50
PROVIDERS: ATTENDING PHYSICIAN Internal Medicine Cardiovascular Disease; FAMILY PHYSICIAN Physician Assistant Medical; OTHER PHYSICIAN Internal Medicine Cardiovascular Disease
DX: I48.19 Other persistent atrial fibrillation (principal); I08.0 Rheumatic disorders of both mitral and aortic valves; I50.32 Chronic diastolic (congestive) heart failure; I45.10 Unspecified right bundle-branch block; Z79.01 Long term (current) use of anticoagulants; Z79.899 Other long term (current) drug therapy
CPT/HCPCS: 93312; 93320; 93325

== ENCOUNTER 2025-08-23 06:50 | Day surgery (SDC) | payer OTHER, SELFPAY | END 2025-08-23 10:07 | disposition home or self-care (01) | LOC: CATH 06:50 | PROVIDERS: ATTENDING PHYSICIAN Internal Medicine; FAMILY PHYSICIAN Physician Assistant Medical; OTHER PHYSICIAN Internal Medicine Cardiovascular Disease | DX: I48.19 Other persistent atrial fibrillation (principal); J90 Pleural effusion, not elsewhere classified; I08.3 Combined rheumatic disorders of mitral, aortic and tricuspid valves; I08.8 Other rheumatic multiple valve diseases; I31.39 Other pericardial effusion (noninflammatory); I45.10 Unspecified right bundle-branch block; I50.32 Chronic diastolic (congestive) heart failure | CPT/HCPCS: 93312; 93320; 93325 ==

== ENCOUNTER 2025-09-04 21:13 | Inpatient (IN) | payer OTHER, SELFPAY ==
[2025-09-04 17:31] VITALS: BP 134/89
[2025-09-04 17:55] LABS: Hematocrit 44.3 % (39.0-52.0); Hemoglobin 14.7 g/dL (13.0-18.0); Mean Corp Hgb Conc. 33.2 g/dL (33.0-37.0); Mean Corpuscular Volume 90.6 fL (80.0-94.0); Nucleated Red Blood Cells % 0 % (-); Platelet Count 231 10^3/uL (130-400); Red Cell Dist. Width 15.9 % (11.5-14.5)
[2025-09-04 18:12] LABS: ALT (SGPT) 41 U/L (0-50); AST (SGOT) 43 U/L (17-59); Albumin 4.6 g/dl (3.5-5.0); Alkaline Phosphatase 83 U/L (38-126); Blood Urea Nitrogen 43 mg/dl (9-20); Calcium 9.5 mg/dl (8.4-10.2); Carbon Dioxide 29 mmol/L (22-30); Chloride 101 mmol/L (98-107); Glucose 146 mg/dl (70-99); Potassium 4.3 mmol/L (3.5-5.1); Sodium 137 mmol/L (135-145); Total Protein 7.3 g/dl (6.3-8.2); eGFR > 60.00
[2025-09-04 18:21] LABS: Troponin I 0.159 ng/ml
[2025-09-04 19:41] VITALS: BP 140/95
[2025-09-04 20:00] VITALS: BP 127/87
--- NOTE | 2025-09-04 20:25 | ED.GENMED ---
History of Present Illness
General
Chief Complaint: Breathing Problem
Source: patient
Exam Limitations: none
Time Seen by Provider: 09/04/25 19:50
Nursing documentation reviewed up to this point in time: agreed with
History of Present Illness
History of Present Illness:
Note:
CHIEF COMPLAINT(S)
Shortness of breath and bilateral leg swelling.
HISTORY OF PRESENT ILLNESS
The patient is an 86-year-old male with a history of atrial fibrillation and congestive heart failure, presenting with shortness of breath and bilateral leg swelling. The symptoms have been ongoing for some time. The atrial fibrillation has not been
amenable to cardioversion due to an unresolved blood clot, for which the patient is currently on apixaban. Despite treatment, the patients congestive heart failure has been exacerbated with fluid accumulation, contributing to shortness of breath and
lower extremity edema. The patient has been taking furosemide 40 mg BID, but did not take it on the day of presentation.
PHYSICAL EXAM
General: Alert, no acute distress.
Cardiovascular: Irregular rhythm, normal rate; bilateral pitting tibial edema noted.
Respiratory: Presence of fluid in the lungs contributing to symptoms of congestion.
ext bilateral tibial edema
PROBLEM LIST
Acute:
- Exacerbation of congestive heart failure
- Atrial fibrillation with unresolved blood clot
- Shortness of breath
- Bilateral leg swelling
CHRONIC MEDICAL CONDITIONS SIGNIFICANTLY AFFECTING CARE
- Atrial fibrillation
- Congestive heart failure
PLAN
The patient will be admitted to the hospital for management and further evaluation by the hospitalist team. Intravenous furosemide will be administered to manage the fluid overload. Cardiology will be consulted during the hospital stay to assess and
manage atrial fibrillation and associated heart failure exacerbation. Dietary recommendations include avoiding salty foods to prevent fluid retention.
DIFFERENTIAL DIAGNOSIS
The Differential Diagnosis includes, in no particular order and is not limited to:
- Congestive heart failure exacerbation
- Deep vein thrombosis
- Pulmonary embolism
- Chronic obstructive pulmonary disease exacerbation
- Asthma exacerbation
- Pneumonia
- Pulmonary edema
- Renal failure
- Cirrhosis
- Constrictive pericarditis
EKG
My independent EKG interpretation is:
- Time of EKG: Not provided
- Rhythm: Atrial fibrillation
- Heart Rate: 73 bpm
- CT Interval: Not provided
- QRS Duration: Not provided
- QT Interval: Not provided
- Allen: Rightward
- Abnormalities: Right bundle branch block
CARE-UPDATE
09/04/25 - 20:24
Bilateral pleural effusions noted on imaging; Patient to be admitted under hospitalist care for further management and monitoring.
Disposition:
SUMMARY OF ENCOUNTER
The patient, an 86-year-old male with a history of chronic congestive heart failure (CHF) and persistent atrial fibrillation with a thrombus in the left atrial appendage, presented with shortness of breath and bilateral leg swelling due to
exacerbation of CHF and bilateral pleural effusions. His symptoms are attributed to fluid accumulation consistent with his existing conditions. The atrial fibrillation is rate-controlled on monitoring. A chest X-ray confirmed bilateral pleural
effusions, likely contributing to his symptoms. Given the patients history of thrombus in the left atrial appendage, cardioversion is not indicated at this time.
DISPOSITION
Admit.
ASSESSMENT
The patient is experiencing an exacerbation of congestive heart failure with persistent atrial fibrillation and bilateral pleural effusions, resulting in shortness of breath and fluid retention symptoms.
MANAGEMENT OF THE PATIENTS CARE WAS DISCUSSED WITH
A hospitalist was consulted via text message for patient admission.
INDEPENDENT REVIEW OF LABS AND INTERPRETATION OF TESTS
- My independent chest X-ray interpretation reveals bilateral pleural effusions contributing to the patients respiratory symptoms.
MEDICATION RECONCILIATION
- lasix was ordered for management.
MEDICAL DECISION MAKING
-Complexity of Data Reviewed: Chronic conditions affecting care include atrial fibrillation, congestive heart failure, and presence of a thrombus in the left atrial appendage. Differential diagnosis includes congestive heart failure exacerbation,
deep vein thrombosis, pulmonary embolism, chronic obstructive pulmonary disease exacerbation, asthma exacerbation, pneumonia, pulmonary edema, renal failure, cirrhosis, and constrictive pericarditis.
-Data:
Category 1
My independent interpretation of chest X-ray.
Category 3
Discussion of management with hospitalist for patient admission.
DIAGNOSIS
- Exacerbation of Congestive Heart Failure (CHF) (ICD-10: I50.9)
- Atrial Fibrillation with Thrombus in Left Atrial Appendage (ICD-10: I48.2)
Past History
Past History
ED Past Medical History: Negative Asthma, HTN, Hypercholesterolemia or NIDDM
ED Past Surgical History: None
Social History
Tobacco: Former smoker
Alcohol: Daily (Wine or Martini one daily)
Personal:
Living: alone
Phy Exam
Physical Exam
Physical Exam:
.
Scores
Heart Failure Risk
Heart Failure Risk Score: Yes
History of Stroke or TIA: No
History of intubation for respiratory distress: No
Heart rate on ED arrival >/= 110: No
SaO2 <90% on arrival on room air: No
HR >/=110 during 3min walk test (or too ill to perform test): Yes
ECG has acute ischemic changes: No
Urea >/=12mmol/L (BUN 33.6mg/dL): Yes
Serum CO2>/=35mmol/L: No
Troponin I or T elevated to ME Level (0.4mg/dL): No
NT-proBNP >/=5,000ng/L (5,000pg/ml): Yes
HF Risk Score: 4
Admission Status: HIGH RISK 26.1% Consider SNF treatment or admission to hospital
Course
Orders/Labs/Results
Orders:
Orders
09/04/25 17:33
Electrocardiogram (*1) Urgent
Reason for Study: Other
Other Reason for Exam: Respiratory Distress
EKG- Treatment ONCE
CR Chest - 2 Views Urgent
Comment:
Reason For Exam: respiratory distress
09/04/25 17:42
Complete Blood Count/With Diff Urgent
Comprehensive Metabolic Panel Urgent
NT-proBNP Urgent
Troponin I Urgent
09/04/25 20:22
Furosemide [Lasix] 40 mg IV NOW STA
Abnormal Lab Results
09/04/25
17:42
RDW 15.9 H %
(11.5-14.5)
MPV 10.6 H fL
(7.4-10.4)
Absolute Lymphs (auto) 1.1 L 10^3/uL
(1.2-3.4)
Absolute Monos (auto) 0.7 H 10^3/uL
(0.1-0.6)
Neutrophils % 76.2 H %
(42.2-75.2)
Lymphocytes % 13.5 L %
(20.5-51.1)
BUN 43 H mg/dl
(9-20)
Glucose 146 H mg/dl
(70-99)
Troponin I 0.159 H* ng/ml
09/04/25 17:42
09/04/25 17:42
Vital Signs
Initial and Last Documented VS:
Initial Vital Signs
Temp Pulse Resp BP Pulse Ox
98 F 73 16 134/89 97
09/04/25 17:31 09/04/25 17:31 09/04/25 17:31 09/04/25 17:31 09/04/25 17:31
Last Documented Vital Signs
Temp Pulse Resp BP Pulse Ox
98 F 62 19 140/95 97
09/04/25 17:31 09/04/25 19:45 09/04/25 19:45 09/04/25 19:41 09/04/25 20:25
*Pulse Oximetry
SaO2: 97
Oxygen Mode of Delivery: Room air
Patient hypoxic: no
*Critical Care Note
Total Time (30-74mins, 75-104mins- exclusive of procedures): Not Applicable
ED Attending Note
-
Portions of this chart may have been created with voice recognition software.� Occasional wrong word or��sound alike� substitutions may have occurred due to the inherent limitations of voice recognition software.
Discharge Plan
Departure
Patient Disposition: Admit
Date of Disposition: 09/04/25
Time of Disposition: 20:22
Admit to: Telemetry
Presentation/result/management discussed w/ accepting MD/DO: Hospitalist
Patient with high blood pressure during this ER visit?: Yes
Condition: Fair
Discharge Problem:
Acute on chronic diastolic (congestive) heart failure, Persistent atrial fibrillation, Thrombus of left atrial appendage, Pleural effusion, bilateral
Prescriptions:
No Action
saw palmetto 500 mg Capsule
500 mg PO BID
finasteride 5 mg tablet
5 mg PO QPM
omega 8-hmy-ody-fish oil [Fish Oil] 1,000 mg (120 mg-180 mg) Capsule
1 cap PO BID
mirabegron [Myrbetriq] 50 mg tablet extended release 24 hr
50 mg PO QPM
dapagliflozin propanediol [Farxiga] 10 mg tablet
10 mg PO QPM
folic acid 1 mg Tablet
1 mg PO DAILY 30 Days Qty: 30 0RF
Eliquis 5 mg Tablet
5 mg PO BID 90 Days Qty: 180 0RF
metoprolol succinate 25 mg Tablet Extended Release 24 Hr
25 mg PO DAILY 30 Days Qty: 30 0RF
thiamine mononitrate (vit B1) 100 mg Tablet
100 mg PO DAILY 30 Days Qty: 30 0RF
therapeutic multivitamin Tablet
1 tab PO DAILY
PreserVision AREDS 2,148 mcg-113 mg-45 mg-17.4mg Tablet
1 tab PO BID
Lipo-Flavonoid 500 mg Tablet
500 tab PO DAILY
Prevagen
1 cap PO DAILY
furosemide 40 mg tablet
40 mg PO 0800,1600 30 Days Qty: 60 0RF
spironolactone 25 mg tablet
25 mg PO QPM 30 Days Qty: 30 0RF
Interventions
Interventions:
*Risk Screen - Suicide Last Done: 09/04/25 17:31
*General Assessment Last Done: 09/04/25 19:43
*Neglect/Abuse Screening Last Done: 09/04/25 17:31
*ED COVID-19 Vaccine History Last Done: 09/04/25 19:43
*ED Influenza Vaccine History Last Done: 09/04/25 19:43
[facility] Fall Risk Assessment Tool Last Done: 09/04/25 19:42
ED- Cardiac Assessment Last Done: 09/04/25 19:51
ED- Pulmonary Assessment Last Done: 09/04/25 19:51
Discharge Date and Time
Print Language: KAZAKH
--- NOTE | 2025-09-04 20:53 | HPS.HSE ---
Family Physician
-
Family Physician: Dina Spears PA-C
Chief Complaint
-
shortness of breath
History of Present Illness
80-year-old male past medical history of persistent atrial fibrillation, chronic HFpEF, left atrial appendage thrombus, moderate aortic stenosis, BPH, presenting with shortness of breath and bilateral leg swelling. Symptoms ongoing for a long time
but worsening over few days. Denies cough. Denies fevers or chills. Denies chest pain. He has been taking Lasix 40 twice daily. Atrial fibrillation has not been amenable to cardioversion due to unresolved left atrial appendage clot for which
patient is on Eliquis.
He drinks 1 glass of wine every day. Denies smoking.
Medical History
Past Medical History
Past Medical History: Reports Other (persistent atrial fibrillation, chronic HFpEF, left atrial appendage thrombus, moderate aortic stenosis, BPH)
Past Surgical History: Reports None
Social History
Tobacco: Non-smoker
Alcohol: Daily
Drug: None
Family History
Family History: Not pertinent
Allergies / Home Medications
Allergies reflects when Allergies were last updated in [employer].
Home Medications with original date entered in [employer]
Allergy/Medication List:
Allergies
Allergy/AdvReac Type Severity Reaction Status Date / Time
No Known Allergies Allergy Verified 09/04/25 17:31
Home Medications
finasteride 5 mg tablet 5 mg PO QPM Urinary Issue 12/19/23
omega 3-svd-rxk-fish oil 1,000 mg (120 mg-180 mg) capsule (Fish Oil) 1 cap PO BID Supplement 12/19/23
saw palmetto 500 mg capsule 500 mg PO BID Supplement 12/19/23
dapagliflozin propanediol 10 mg tablet (Farxiga) 10 mg PO QPM Heart Failure 06/08/25
mirabegron 50 mg tablet,extended release 24 hr (Myrbetriq) 50 mg PO QPM Urinary Issue 06/08/25
apixaban 5 mg tablet (Eliquis) 5 mg PO BID 90 days #180 tabs 06/10/25
folic acid 1 mg tablet 1 mg PO DAILY 30 days #30 tabs 06/10/25
metoprolol succinate 25 mg tablet,extended release 24 hr 25 mg PO DAILY 30 days #30 tabs 06/10/25
thiamine mononitrate (vit B1) 100 mg tablet 100 mg PO DAILY 30 days #30 tabs 06/10/25
Prevagen 1 cap PO DAILY Supplement 06/21/25
therapeutic multivitamin 1 tab PO DAILY Supplement 06/21/25
vit B complex and P-lawjmrp-cdqpqqky-bioflavonoid,lemon 500 mg tablet (Lipo-Flavonoid) 500 tab PO DAILY Supplement 06/21/25
vitamins A,C,O-zfjb-mgvned 2,148 mcg-113 mg-45 mg-17.4 mg tablet (PreserVision AREDS) 1 tab PO BID Eye Condition 06/21/25
furosemide 40 mg tablet 40 mg PO 0800,1600 Fluid Retention/Swelling 30 days #60 tabs 06/24/25
spironolactone 25 mg tablet 25 mg PO QPM Heart Disease/Condition 30 days #30 tabs 06/24/25
Review of Systems
-
History Source: Patient
A 12 point ROS was completed and negative except as noted: Yes
Constitutional: Reports No Symptoms
EENT: Reports No Symptoms
Respiratory: Reports See HPI
Cardiac: Reports See HPI
Abdomen/GI: Reports No Symptoms
: Reports No Symptoms
Musculoskeletal: Reports No Symptoms
Skin: Reports No Symptoms
Neurological: Reports No Symptoms
Endocrine: Reports No Symptoms
Hematologic/Lymphatic: Reports No Symptoms
Psych: Reports No Symptoms
Physical Exam
Vital Signs
Vital Signs
Temp Pulse Resp BP Pulse Ox
98 F 62 19 140/95 97
09/04/25 17:31 09/04/25 19:45 09/04/25 19:45 09/04/25 19:41 09/04/25 20:25
Physical Exam
General: Well Developed, Well Nourished and No Apparent Distress
HEENT: NormoCephalic, Moist mucous membranes and Atraumatic
Respiratory: Clear
Cardiac: S1/S2 and Regular Rhythm; No Murmur or Rub
GI: Soft, Non Tender, Non Distended and Normal Bowel Sounds; No Organomegaly
Rectal: Deferred by Provider
Musculoskeletal: No Clubbing, No Cyanosis and No Edema
Skin: No Rash
Neuro: Nonfocal/grossly intact
Laboratory Results
-
09/04/25 17:42
09/04/25 17:42
Laboratory Results
Total Bilirubin 0.8 mg/dl (0.2-1.3) 09/04/25 17:42
AST 43 U/L (17-59) 09/04/25 17:42
ALT 41 U/L (0-50) 09/04/25 17:42
Alkaline Phosphatase 83 U/L (38-126) 09/04/25 17:42
Troponin I 0.159 ng/ml H* 09/04/25 17:42
Data Reviewed
-
Lab Data: Labs Reviewed by me
Old Records: Reviewed
Impression/Plan
-
IMPRESSION:
PLAN:
# Acute HFpEF exacerbation
- Chest x-ray shows small right and moderate left pleural effusion versus atelectasis/pneumonia progressed bilaterally
- Cardiac BNP 12,000
- Check I's and O's, daily weights
- 40 IV Lasix twice daily
-Continue spironolactone
- Cardiology consulted
# Nonischemic myocardial injury
- Troponin 0.159
- Trend troponins
-EKG shows atrial fibrillation, right bundle branch block which is old
Residual left atrial appendage thrombus
- Continue Eliquis
- Noted on recent BAKARI on 08/23
Persistent atrial fibrillation
- Continue Eliquis
- Continue metoprolol
Moderate aortic stenosis
BPH
- Continue finasteride
Full code
DVT prophylaxis�Eliquis
Cardiac diet
[2025-09-04] MEDS: LASIX 40 MG IV (20:56)
[2025-09-04 21:00] VITALS: BP 148/89
[2025-09-04 22:13] VITALS: BP 129/75; BMI 26.0
[2025-09-04 23:00] VITALS: BP 137/72
--- NOTE | 2025-09-04 23:07 | PTCARENOTE ---
pt arrived to unit via stretcher and ambulated to bedside. Pt oriented to unit. Side rails up, call piña within reach. Will continue plan of care.
[2025-09-05] VITALS (7 sets, daily range): BP systolic 110–136; BP diastolic 60–82; BMI 26.0
[2025-09-05 01:07] LABS: Troponin I 0.168 ng/ml
[2025-09-05 06:38] LABS: Hematocrit 41.4 % (39.0-52.0); Hemoglobin 13.8 g/dL (13.0-18.0); Mean Corp Hgb Conc. 33.3 g/dL (33.0-37.0); Mean Corpuscular Volume 89.6 fL (80.0-94.0); Nucleated Red Blood Cells % 0 % (-); Platelet Count 206 10^3/uL (130-400); Red Cell Dist. Width 15.9 % (11.5-14.5)
[2025-09-05 07:12] LABS: Troponin I 0.211 ng/ml
[2025-09-05 07:35] LABS: ALT (SGPT) 35 U/L (0-50); AST (SGOT) 34 U/L (17-59); Albumin 3.9 g/dl (3.5-5.0); Alkaline Phosphatase 74 U/L (38-126); Blood Urea Nitrogen 38 mg/dl (9-20); Calcium 9.3 mg/dl (8.4-10.2); Carbon Dioxide 30 mmol/L (22-30); Chloride 104 mmol/L (98-107); Estimated Creatinine Clearance 40 ml/min; Glucose 100 mg/dl (70-99); Potassium 4.1 mmol/L (3.5-5.1); Sodium 138 mmol/L (135-145); Total Protein 6.8 g/dl (6.3-8.2); eGFR > 60.00
[2025-09-05] MEDS: VITAMIN B1 100 MG PO (08:15)
[2025-09-05] MEDS: ELIQUIS 5 MG PO ×2 (08:15→19:38)
[2025-09-05] MEDS: OCUVITE SOFTGEL 1 CAP PO ×2 (08:15→19:38)
[2025-09-05] MEDS: LASIX 40 MG IV ×2 (08:15→16:39)
[2025-09-05] MEDS: TOPROL XL 25 MG PO (08:15)
[2025-09-05] MEDS: FOLVITE 1 MG PO (08:15)
[2025-09-05] MEDS: THERAGRAN 1 TABLET PO (08:15)
--- NOTE | 2025-09-05 08:36 | CON.CAR ---
Addendum entered and electronically signed by Angela Hoffman MD 09/05/25 13:42:
I saw and evaluated the patient, and I provided the substantive portion of the medical decision making.
I reviewed and agree with the note by MARGIE Borjas and it accurately reflects our care.
I personally performed the medical decision making of the this encounter and my assessment and plan is below:
80-year-old male followed by Dr. Garber with a past medical history of HFpEF, persistent atrial fibrillation on Eliquis in the setting of left MAICOL thrombus with recent relook 08/23 and plan to relook at 4 weeks, moderate aortic stenosis and right
bundle branch block presents with increasing dyspnea on exertion, fatigue and lower extremity edema. He is compliant with CHF plan. He has received some IV Lasix with some improvement but not resolution of symptoms.
On exam, he has an irregularly irregular rate and rhythm with a normal S1-S2 no murmur rubs or gallops were appreciated. Lung sounds caudally displaced. JVP is elevated at 13 cm of H2O, lungs clear to auscultation. Extremities with trace edema
bilaterally.
EKG shows atrial fibrillation with right bundle branch block pattern. no significant change from prior. Labs show proBNP 12,100Troponin 0.16-0 0.211-0.198
Assessment
Acute heart failure with preserved ejection fraction
Persistent atrial fibrillation in the setting of left atrial thrombus
Abnormal troponin in the setting of nonischemic myocardial injury due to heart failure exacerbation.
Plan:
Continue with IV diuresis with intensive monitoring of lites and lab values.
Continue GDMT
Reevaluate goal weight, may need to establish a new 'dry weight' based on symptoms, labs and vital signs.
Continue anticoagulation without interruption given MAICOL thrombus. Relook planned at 4 weeks. Hopefully establishing normal rhythm will help prevent further heart failure exacerbations.
Will follow
Original Note:
Consultation
Consultation Request
Date/Time Consultation Requested: 09/04/252203
Date/Time Consultation Performed: 09/05/25 5630
Requesting Provider: Dr. Pearson
Performing Provider: Sarah HANSON for Dr. Hoffman
Reason for Consultation: CHF
Medical History
-
Chief Complaint: SOB, LE edema
History of Present Illness:
80 y/o male (patient of Dr. Garber) with HFpEF, persistent AFIB on Eliquis, MAICOL thrombus, moderate , and RBBB who presents with worsened SOB, fatigue, and LE edema over the past few days. Compliant with all meds and no change to diet or weight (at
home). Admitted for CHF exacerbation and being diuresed. He is in no distress at the time of my assessment.
Past Medical History
Past Medical History: Arrhythmias, CHF, Valvular Disease and Other (as above)
Social History
Tobacco: Former Smoker
Family History
Family History: Reviewed & Not Pertinent
Allergies / Home Medications
Allergy/AdvReac Type Severity Reaction Status Date / Time
No Known Allergies Allergy Verified 09/04/25 17:31
�Medication �Instructions �Recorded �Confirmed �Type
finasteride 5 mg tablet 5 mg PO QPM Urinary Issue 12/19/23 09/04/25 History
omega 6-uwo-ybb-fish oil 1,000 mg 1 cap PO BID Supplement 12/19/23 09/04/25 History
(120 mg-180 mg) capsule (Fish Oil)
saw palmetto 500 mg capsule 500 mg PO BID Supplement 12/19/23 09/04/25 History
dapagliflozin propanediol 10 mg 10 mg PO QPM Heart Failure 06/08/25 09/04/25 History
tablet (Farxiga)
mirabegron 50 mg tablet,extended 50 mg PO QPM Urinary Issue 06/08/25 09/04/25 History
release 24 hr (Myrbetriq)
apixaban 5 mg tablet (Eliquis) 5 mg PO BID 90 days #180 tabs 06/10/25 09/04/25 Rx
folic acid 1 mg tablet 1 mg PO DAILY 30 days #30 tabs 06/10/25 09/04/25 Rx
metoprolol succinate 25 mg 25 mg PO DAILY 30 days #30 tabs 06/10/25 09/04/25 Rx
tablet,extended release 24 hr
thiamine mononitrate (vit B1) 100 100 mg PO DAILY 30 days #30 tabs 06/10/25 09/04/25 Rx
mg tablet
Prevagen 1 cap PO DAILY Supplement 06/21/25 09/04/25 History
therapeutic multivitamin 1 tab PO DAILY Supplement 06/21/25 09/04/25 History
vit B complex and 500 tab PO DAILY Supplement 06/21/25 09/04/25 History
Y-kfsyacy-svubrkbo-bioflavonoid,lemon
500 mg tablet (Lipo-Flavonoid)
vitamins A,C,F-gnpb-siszat 2,148 1 tab PO BID Eye Condition 06/21/25 09/04/25 History
mcg-113 mg-45 mg-17.4 mg tablet
(PreserVision AREDS)
furosemide 40 mg tablet 40 mg PO 0800,1600 Fluid 06/24/25 09/04/25 Rx
Retention/Swelling 30 days #60 tabs
spironolactone 25 mg tablet 25 mg PO QPM Heart 06/24/25 09/04/25 Rx
Disease/Condition 30 days #30 tabs
Review of Systems
-
History Source: Patient
All other systems: Negative unless noted
Constitutional: Fatigue
Respiratory: Trouble Breathing
Musculoskeletal: Edema
Physical Exam
Vital Signs
Temp Pulse Resp BP Pulse Ox
97.4 F 68 16 125/78 100
09/05/25 07:38 09/05/25 07:38 09/05/25 07:38 09/05/25 07:38 09/05/25 07:38
Lab Results
09/05/25 06:30
09/05/25 06:30
Troponin I 0.211 ng/ml H* D 09/05/25 06:30
Fur-Z-Wzthwefnyup Pept 90383 pg/ml 09/04/25 17:42
Physical Exam
General: Well Developed, Well Nourished and No Apparent Distress
HEENT: Normocephalic and Anicteric
Respiratory: Crackles (right base ) and Other (diminished left base)
Cardiac: Irregular Rhythm and Murmur (II/ systolic)
Musculoskeletal: Edema (mild BLE edema)
Skin: Warm and Dry
Neuro: AO x 3
Psych: Calm
Impression / Plan
-
HFpEF, acute on chronic:
-BNP 12,000, CXR: Small right and moderate left pleural effusions with associated atelectasis and/or pneumonia, progressed bilaterally. No WBC count or fever.
-severe exacerbation in that he is requiring hospitalization and IV diuresis, which requires intensive monitoring. Continue IV lasix and monitor response.
-continue spironolactone and SGLT2I
-ultimate goal is to get him back in SR, but cannot do that with MAICOL thrombus not yet resolved. Of note, CHF did precede AFIB diagnosis 06/2025.
MAICOL thrombus:
-most recent (and 3rd) BAKARI as below, improved from initial BAKARI, but not resolved yet- plan is continue Eliquis and repeat BAKARI again in 4 weeks (scheduled later this month)
Atrial fibrillation, persistent:
-rate-controlled- continue metoprolol
-continue Eliquis
-rhythm control is plan, but cannot do so until thrombus has resolved
Aortic stenosis:
-monitor over time with echo
-volume plan as above
Abnromal troponin:
-can trend to peak, but EKG stable and no CP and similar to previous. Suspect acute, non-ischemic myocardial injury in setting of CHF.
Data:
BAKARI 08/23/25: Ejection fraction is 60-65% by visual assessment. Spontaneous echo contrast is noted in the left atrium and left atrial appendage. The emptying velocity of the left atrial appendage is significantly diminished. There was evidence of
residual thrombus at the apex of the left atrial appendage. Moderate aortic stenosis. Mild to moderate mitral valve regurgitation. Small pericardial effusion is seen. Pleural effusion is noted. Compared to a prior transesophageal echocardiogram
study from 07/17/2025, there is only slight interval change of the residual left atrial appendage thrombus.
Data Reviewed
-
EKG: Tracing Personally Visualized and interpreted (AFIB 73 BPM RBBB stable)
Radiology: Report Reviewed by me (CXR: Small right and moderate left pleural effusions with associated atelectasis and/or pneumonia, progressed bilaterally.)
Medical Tests (Nuc Med, Echo etc): Report Reviewed by me (BAKARI as above)
Labs: Labs Reviewed by me
[2025-09-05 12:55] LABS: Troponin I 0.198 ng/ml
--- NOTE | 2025-09-05 13:36 | W.PN.HOSP.TC ---
Today's Communication/Plan
-
Assessment / Plan
Assessment / Plan
NAD, sitting on edge of bed, not requiring supplemental oxygen
Scleral Anicteric
MMM
No JVD
Crackles
RRR, S1/S2
Bilateral lower extremity
Soft, NT, ND, BS+
Warm, Dry
AAOx3
Calm
HFpEF, acute on chronic
Continue IV diuretics
Aldactone and SGLT2 inhibitors
Cardiology following
Nonischemic myocardial injury
Trend trops
MAICOL thrombus
Continue Eliquis
Per cardiology repeat BAKARI in 4 weeks
Atrial fibrillation, persistent however rate controlled at this time
Continue beta-virgen Eliquis
Aortic stenosis outpatient cardiology follow-up
Anticipated Discharge: 24 - 48 hours
Subjective/Interval History
-
Date of Service: September 05, 2025
Seen and examined. No new complaints. No acute overnight events.
Objective Data
-
Labs:
Laboratory Results
09/05/25
06:30
WBC 7.1
Hgb 13.8
Hct 41.4
Plt Count 206
Sodium 138
Potassium 4.1
Chloride 104
Carbon Dioxide 30
BUN 38 H
Creatinine 1.2
Glucose 100 H
Calcium 9.3
Total Bilirubin 1.1
AST 34
ALT 35
Alkaline Phosphatase 74
Vital Signs:
Vital Signs
Temp Pulse Resp BP Pulse Ox
97.2 F 65 16 110/61 97
09/05/25 11:04 09/05/25 11:04 09/05/25 11:04 09/05/25 11:04 09/05/25 11:04
I&O
09/04/25 09/05/25 09/06/25
06:59 06:59 06:59
Intake Total 240 / 240
Output Total 950 / 950
Balance -710 / -710
--- NOTE | 2025-09-05 14:15 | PTCARENOTE ---
Pt with multiple episodes of bradycardia on the tele monitor with pauses lasting less than 2 seconds. Cards made aware, pt states feeling tired and slightly lightheaded due to poor sleep and BP stable. No new orders, will continue to monitor, plan
of care ongoing.
--- NOTE | 2025-09-05 16:13 | CM ---
Patient seen at bedside
IA completed
DX: CHF exacerbation
Lives with 1 story home, 1 NINA
PLOF: Independent
dme: cane
denies vn/rehab
PCP: Dina Spears
Pharmacy: [address], [place]
PLAN: Home, CM to follow for VN needs
--- NOTE | 2025-09-05 16:52 | PN.CDI ---
CDI
- -
CDI:
Physician Documentation Request
Admit Date: 09/04/25 21:13
Dear Doctor Naresh,
Please review the following and provide your response in the progress notes.
Clinical Indicators:
Pt admitted with CHFpEF exacerbation
Documented per External medical record 09/04,' Problem Accelerated essential hypertension I10 ...'
Cardiology consult per past visit 06/21/25, 'Hypertension, chronic and stable on current medical therapy...'
Please provide a diagnosis for the above findings:
HTN is a valid diagnosis
HTN is not a valid diagnosis
Other ( please specify)
Use of terms such as suspected, likely, concern for, or probable (associated with a specific diagnosis that is being evaluated, monitored, or treated as if it exists) are acceptable and can be coded in the inpatient setting, when documented at the
time of discharge.
Thank you,
Olive Jane RN
CDI Specialist
[place] [facility]
Please use your independent medical judgment in providing your response.
[2025-09-05] MEDS: ALDACTONE 25 MG PO (17:43)
[2025-09-05] MEDS: PROSCAR 5 MG PO (17:43)
[2025-09-05] MEDS: FARXIGA 10 MG PO (17:43)
[2025-09-06 03:20] VITALS: BP 122/77
[2025-09-06 03:59] VITALS: BMI 25.5
[2025-09-06 07:20] LABS: Blood Urea Nitrogen 35 mg/dl (9-20); Calcium 9.1 mg/dl (8.4-10.2); Carbon Dioxide 31 mmol/L (22-30); Chloride 100 mmol/L (98-107); Estimated Creatinine Clearance 44 ml/min; Glucose 95 mg/dl (70-99); Potassium 4.0 mmol/L (3.5-5.1); Sodium 136 mmol/L (135-145); eGFR > 60.00
[2025-09-06 07:42] VITALS: BP 111/71
--- NOTE | 2025-09-06 08:18 | W.PN.CD ---
Today's Communication / Plan
-
-will check orthostatics
-will add probnp as may be euvuolemic
-will ask him to ambulate and assess symptoms
-will check a cxr
-for now Continue IV lasix and monitor response. May transition to po in the pm
-possible d/c later today vs tomorrow
Impression / Plan
-
HFpEF, acute on chronic:
-BNP 12,000, CXR: Small right and moderate left pleural effusions with associated atelectasis and/or pneumonia, progressed bilaterally. No WBC count or fever.
-severe exacerbation in that he is requiring hospitalization and IV diuresis, which requires intensive monitoring.
-today c.o of some OH dizziness, but still 'aware of respirations' not neccessarily sob.
-will check orthostatics
-will add probnp as may be euvuolemic
-will ask him to ambulate and assess symptoms
-will check a cxr
-for now Continue IV lasix and monitor response. May transition to po in the pm
-continue spironolactone and SGLT2I
-ultimate goal is to get him back in SR, but cannot do that with MAICOL thrombus not yet resolved. Of note, CHF did precede AFIB diagnosis 06/2025.
MAICOL thrombus:
-most recent (and 3rd) BAKARI as below, improved from initial BAKARI, but not resolved yet- plan is continue Eliquis and repeat BAKARI again in 4 weeks (scheduled later this month)
Atrial fibrillation, persistent:
-rate-controlled- continue metoprolol
-continue Eliquis
-rhythm control is plan, but cannot do so until thrombus has resolved
Aortic stenosis:
-monitor over time with echo
-volume plan as above
Abnromal troponin:
-can trend to peak, but EKG stable and no CP and similar to previous. Suspect acute, non-ischemic myocardial injury in setting of CHF.
Data:
BAKARI 08/23/25: Ejection fraction is 60-65% by visual assessment. Spontaneous echo contrast is noted in the left atrium and left atrial appendage. The emptying velocity of the left atrial appendage is significantly diminished. There was evidence of
residual thrombus at the apex of the left atrial appendage. Moderate aortic stenosis. Mild to moderate mitral valve regurgitation. Small pericardial effusion is seen. Pleural effusion is noted. Compared to a prior transesophageal echocardiogram
study from 07/17/2025, there is only slight interval change of the residual left atrial appendage thrombus.
Physical Exam
Vital Signs/Labs
Vital Signs
Temp Pulse Resp BP Pulse Ox
97.4 F 65 16 111/71 96
09/06/25 07:42 09/06/25 07:42 09/06/25 07:42 09/06/25 07:42 09/06/25 07:42
09/05/25 09/06/25 09/07/25
06:59 06:59 06:59
Actual Weight 151 lb 3 oz 148 lb 11.2 oz
09/05/25 06:30
09/06/25 06:33
09/04/25
17:42
Hei-P-Gutqizgnjhb Pept [id number]
LAB Results
09/04/25 09/04/25 09/05/25
17:42 22:04 00:09
Troponin I 0.159 H* Cancelled 0.168 H*
09/05/25 09/05/25
06:30 12:06
Troponin I 0.211 H* D 0.198 H*
Physical Exam
Constitutional: No acute distress
Cardiovascular: Pedal edema is absent, Systolic murmur absent, Diastolic murmur absent and Rhythm/rate is irregular
Respiratory: Respiratory effort normal, Lungs clear to auscul., Wheeze Absent and Crackles Absent
Neuro/Psych: AO x 3
Data Reviewed
-
Date of Service: September 06, 2025
EKG: Other (fib rate controlled with ambulation in the 's)
[2025-09-06] MEDS: TOPROL XL 25 MG PO (08:28)
[2025-09-06] MEDS: LASIX 40 MG IV ×2 (08:28→15:18)
[2025-09-06] MEDS: ELIQUIS 5 MG PO ×2 (08:29→20:51)
[2025-09-06] MEDS: FOLVITE 1 MG PO (08:29)
[2025-09-06] MEDS: THERAGRAN 1 TABLET PO (08:29)
[2025-09-06] MEDS: OCUVITE SOFTGEL 1 CAP PO ×2 (08:29→20:54)
[2025-09-06] MEDS: VITAMIN B1 100 MG PO (08:29)
--- NOTE | 2025-09-06 09:39 | VNURNOTE ---
Home Health Liaison met with patient at bedside to discuss [facility] nurse/therapy, visits, schedule and homebound status. Explained that visits at home are 2-3 x per week to assess and teach medical management. Explained that goal is to prevent
re-hospitalization. Also mentioned to patient that once he signs on w/services, he has our on-call services 24/ should he have a question or issue. Patient understands that he came into hospital d/t SOB and fatigue. He stated that he does weigh
himself daily already. Liaison explained that [facility] bills through insurance. Patient thought it over and declined services. Provided contact number for [facility]. Advised pt if he changes his mind, he needs to go through PCP to have us ordered.
[facility] Intake notified. CM notified. Pt refusing [facility]
[2025-09-06 10:36] VITALS: BMI 25.5
[2025-09-06 11:13] VITALS: BP 106/60; BP 112/59; BP 114/63; PULSE 58; PULSE 63; PULSE 65
[2025-09-06 15:11] VITALS: BP 129/48
--- NOTE | 2025-09-06 15:15 | W.HF.CON ---
Heart Failure
- LV Function
Left ventricular function study result: LV Ejection fraction >/= 50%
Ejection Fraction Percentage: 60-65
- ARNI
Patient already on ARNI: No
Heart Failure ARNI Not Indicated: LV Ejection Fraction >/= 40%
- ACEI/ARB
Patient already on ACEI/ARB: No
Heart Failure ACEI/ARB Not Indicated: LV Ejection Fraction > 40%
- Beta Sophie
Patient already on Evidence Based Beta Sophie: Yes
- Mineralocorticord Receptor Antagonist
Patient already on MRA: Yes
- SGLT-2 Inhibitor
Patient already on SGLT-2 Inhibitor: Yes
- Afib Anticoagulation
Patient already on Anticoagulation for Afib: Yes
- NYHA CHF Classification
NYHA CHF Classification Level: Class III - Symptoms w/ min exertion, interferes w/ nml daily activity
- ACC/AHA Stage
ACC/AHA Stage: Stage C: Symptomatic Heart Failure
--- NOTE | 2025-09-06 16:49 | W.PN.HOSP.TC ---
Addendum entered and electronically signed by Ivan Infante MD 09/08/25 15:21:
htn
Original Note:
Today's Communication/Plan
-
Chest x-ray without evidence of pulmonary edema
BNP trending down
For now continue IV diuretics
Likely able to transition to oral tomorrow
Assessment / Plan
Assessment / Plan
NAD, sitting on edge of bed, not requiring supplemental oxygen
Scleral Anicteric
MMM
No JVD
Crackles
RRR, S1/S2
Bilateral lower extremity
Soft, NT, ND, BS+
Warm, Dry
AAOx3
Calm
HFpEF, acute on chronic
Continue IV diuretics
Aldactone and SGLT2 inhibitors
Cardiology following
Nonischemic myocardial injury
Trend trops
MAICOL thrombus
Continue Eliquis
Per cardiology repeat BAKARI in 4 weeks
Atrial fibrillation, persistent however rate controlled at this time
Continue beta-virgen Eliquis
Aortic stenosis outpatient cardiology follow-up
Anticipated Discharge: Within 24 hours
Subjective/Interval History
-
Date of Service: September 06, 2025
Examined. No new complaints. No acute overnight events.
Objective Data
-
Labs:
Laboratory Results
09/06/25
06:33
Sodium 136
Potassium 4.0
Chloride 100
Carbon Dioxide 31 H
BUN 35 H
Creatinine 1.1
Glucose 95
Calcium 9.1
Vital Signs:
Vital Signs
Temp Pulse Resp BP Pulse Ox
98.2 F 63 17 129/48 98
09/06/25 15:11 09/06/25 15:11 09/06/25 15:11 09/06/25 15:11 09/06/25 15:11
I&O
09/05/25 09/06/25 09/07/25
06:59 06:59 06:59
Intake Total 240 / 240 240 / 240
Output Total 950 / 950 2150 / 2150 630 / 630
Balance -710 / -710 -1909 / -1909 -630 / -630
[2025-09-06] MEDS: ALDACTONE 25 MG PO (17:45)
[2025-09-06] MEDS: PROSCAR 5 MG PO (17:45)
[2025-09-06] MEDS: FARXIGA 10 MG PO (17:45)
[2025-09-06 19:26] VITALS: BP 118/66
[2025-09-06 22:36] VITALS: BP 109/70
[2025-09-07 03:10] VITALS: BP 114/67
[2025-09-07 03:49] VITALS: BMI 25.1
[2025-09-07 07:48] VITALS: BP 122/63
[2025-09-07] MEDS: LASIX 40 MG IV (08:13)
[2025-09-07] MEDS: VITAMIN B1 100 MG PO (08:15)
[2025-09-07] MEDS: OCUVITE SOFTGEL 1 CAP PO (08:15)
[2025-09-07] MEDS: ELIQUIS 5 MG PO (08:15)
[2025-09-07] MEDS: FOLVITE 1 MG PO (08:15)
[2025-09-07] MEDS: TOPROL XL 25 MG PO (08:15)
[2025-09-07] MEDS: THERAGRAN 1 TABLET PO (08:15)
[2025-09-07 11:05] VITALS: BP 97/61
--- NOTE | 2025-09-07 11:07 | W.PN.CD ---
Today's Communication / Plan
-
- Stable for discharge
- Swotch to PO lasix.
Impression / Plan
-
HFpEF, acute on chronic:
-BNP 12,000, CXR: Small right and moderate left pleural effusions with associated atelectasis and/or pneumonia, progressed bilaterally. No WBC count or fever.
-severe exacerbation in that he is requiring hospitalization and IV diuresis, which requires intensive monitoring.
-CXR 09/06/25 - small effusion and atelectasis. Left effusion is worse compared to 06/24/25 CXR.
-s/p diuresis - now close to euvolemia
-Switch to PO lasix - 40 mg PO BID. Additional dose of 40 mg if no response to 40 mg dose.
-continue spironolactone and SGLT2I
-ultimate goal is to get him back in SR, but cannot do that with MAICOL thrombus not yet resolved. Of note, CHF did precede AFIB diagnosis 06/2025.
MAICOL thrombus:
-most recent (and 3rd) BAKARI as below, improved from initial BAKARI, but not resolved yet- plan is continue Eliquis and repeat BAKARI again in 4 weeks (scheduled later this month)
Atrial fibrillation, persistent:
-rate-controlled- continue metoprolol
-continue Eliquis
-rhythm control is plan, but cannot do so until thrombus has resolved
Aortic stenosis:
-monitor over time with echo
-volume plan as above
Abnromal troponin:
-can trend to peak, but EKG stable and no CP and similar to previous. Suspect acute, non-ischemic myocardial injury in setting of CHF.
Data:
BAKARI 08/23/25: Ejection fraction is 60-65% by visual assessment. Spontaneous echo contrast is noted in the left atrium and left atrial appendage. The emptying velocity of the left atrial appendage is significantly diminished. There was evidence of
residual thrombus at the apex of the left atrial appendage. Moderate aortic stenosis. Mild to moderate mitral valve regurgitation. Small pericardial effusion is seen. Pleural effusion is noted. Compared to a prior transesophageal echocardiogram
study from 07/17/2025, there is only slight interval change of the residual left atrial appendage thrombus.
Physical Exam
Vital Signs/Labs
Vital Signs
Temp Pulse Resp BP Pulse Ox
97.3 F 62 18 97/61 96
09/07/25 11:05 09/07/25 11:05 09/07/25 11:05 09/07/25 11:05 09/07/25 11:05
09/06/25 09/07/25 09/08/25
06:59 06:59 06:59
Actual Weight 67.449 kg 66.253 kg
09/05/25 06:30
09/04/25 09/06/25
17:42 06:33
Bzh-H-Lqkfzaufjbj Pept [id number]
LAB Results
09/04/25 09/04/25 09/05/25
17:42 22:04 00:09
Troponin I 0.159 H* Cancelled 0.168 H*
09/05/25 09/05/25
06:30 12:06
Troponin I 0.211 H* D 0.198 H*
Physical Exam
Constitutional: No acute distress and Comfortable
EENT: Anicteric and Moist mucous membranes
Cardiovascular: Pedal edema is absent, JVD pressure is normal and Rhythm/rate is irregular
Respiratory: Respiratory effort normal and Rhonchi Present
GI: Soft, Non tender and Normal bowel sounds
Neuro/Psych: Alert, Oriented and AO x 3
Other: Skin
Data Reviewed
-
Date of Service: September 07, 2025
Medical Decision Making: Reviewed Test Results, Test Interpretation and Review of Case with other Provider
EKG: Tracing Personally Visualized and interpreted
Echo: Report Reviewed by me
X-Ray/CT/US/MRI/NUC/PET: Image Personally Visualized and interpreted
Labs: Labs Reviewed by me
Old Records: Reviewed
[2025-09-07 12:31] LABS: Blood Urea Nitrogen 31 mg/dl (9-20); Calcium 9.1 mg/dl (8.4-10.2); Carbon Dioxide 24 mmol/L (22-30); Chloride 100 mmol/L (98-107); Estimated Creatinine Clearance 44 ml/min; Glucose 149 mg/dl (70-99); Potassium 4.3 mmol/L (3.5-5.1); Sodium 134 mmol/L (135-145); eGFR > 60.00
--- NOTE | 2025-09-07 13:06 | W.DCSUMMARY ---
Discharge Summary
Discharge Data
Date of Admission: 09/04/25
Date of Discharge: 09/07/25
-
Pending Results: No
Hospital Course
80-year-old male past medical history of persistent atrial fibrillation, chronic HFpEF, left atrial appendage thrombus, moderate aortic stenosis, BPH
Presented with shortness of breath and bilateral lower extremity swelling. Diagnosed with acute HFpEF exacerbation with an elevated BNP of 12,000 and chest x-ray demonstrating findings consistent with pulmonary edema. Started on twice daily IV
Lasix. Evaluated by cardiology, and agreed with IV diuretics eventually transition to oral. Will need to follow-up with cardiology as outpatient to repeat BAKARI for potential cardioversion which has been postponed due to MAICOL thrombus on previous BAKARI
and will need to continue Eliquis for now.
CXR
IMPRESSION:
Small right and moderate left pleural effusions with associated atelectasis and/or pneumonia, progressed bilaterally.
CXR
IMPRESSION:
Stable small right and moderate left pleural effusions with associated atelectasis and/or pneumonia.
Seen and examined on the day of discharge which was 09/07/2025. No new complaints. No acute overnight events.
NAD
Scleral Anicteric
MMM
No JVD
CTABL
RRR, S1/S2
Soft, NT, ND, BS+
Warm, Dry
AAOx3
Calm
More than 30 minutes spent in discharge including
Final examination of the patient
Summarizing hospital stay
Instructions for continuing care to all relevant caregivers
Preparation of discharge records, prescriptions, and referral forms
Total time spent (in minutes): 33mins
Discharge Plan
-
Patient Disposition: Home (Routine Discharge)
Discharge Diagnosis/Procedures: Acute on Chronic HFpEF
Condition: Good
Diet: As tolerated, Low Fat, Low Cholesterol, 2 Gram Sodium, No added salt and Restrict fluids to 48 oz
Activity Restrictions/Additional Instructions:
Presented with shortness of breath and bilateral lower extremity swelling. Diagnosed with acute HFpEF exacerbation with an elevated BNP of 12,000 and chest x-ray demonstrating findings consistent with pulmonary edema. Started on twice daily IV
Lasix. Evaluated by cardiology, and agreed with IV diuretics eventually transition to oral. Will need to follow-up with cardiology as outpatient to repeat BAKARI for potential cardioversion which has been postponed due to MAICOL thrombus on previous BAKARI
and will need to continue Eliquis for now.
CXR
IMPRESSION:
Small right and moderate left pleural effusions with associated atelectasis and/or pneumonia, progressed bilaterally.
CXR
IMPRESSION:
Stable small right and moderate left pleural effusions with associated atelectasis and/or pneumonia.
Instructions: *CBC Heart Failure Instructions
Referrals:
Simran Jalloh CRNP [Specified Professional Personl, Cardiology] - 09/09/25 11:20 am
Dina Spears PA-C [Family Provider, Internal Medicine]
Additional Discharge Medication Instructions: take an exra dose of lasix if no response
Prescriptions:
Continued
saw palmetto 500 mg Capsule
500 mg PO BID
finasteride 5 mg tablet
5 mg PO QPM
omega [id number] oil [Fish Oil] 1,000 mg (120 mg-180 mg) Capsule
1 cap PO BID
mirabegron [Myrbetriq] 50 mg tablet extended release 24 hr
50 mg PO QPM
dapagliflozin propanediol [Farxiga] 10 mg tablet
10 mg PO QPM
folic acid 1 mg Tablet
1 mg PO DAILY 30 Days Qty: 30 0RF
Eliquis 5 mg Tablet
5 mg PO BID 90 Days Qty: 180 0RF
metoprolol succinate 25 mg Tablet Extended Release 24 Hr
25 mg PO DAILY 30 Days Qty: 30 0RF
thiamine mononitrate (vit B1) 100 mg Tablet
100 mg PO DAILY 30 Days Qty: 30 0RF
therapeutic multivitamin Tablet
1 tab PO DAILY
PreserVision AREDS 2,148 mcg-113 mg-45 mg-17.4mg Tablet
1 tab PO BID
Lipo-Flavonoid 500 mg Tablet
500 tab PO DAILY
Prevagen
1 cap PO DAILY
furosemide 40 mg tablet
40 mg PO 0800,1600 30 Days Qty: 60 0RF
spironolactone 25 mg tablet
25 mg PO QPM 30 Days Qty: 30 0RF
Discharge Date and Time
Print Language: TANZANIAN
[2025-09-07 14:39] VITALS: BP 109/70
--- NOTE | 2025-09-07 14:52 | CM ---
MD entered order for discharge.
Spoke with pt he agrees with dc and signed IMM .IMM on chart.
Son Cornell will drive pt home .Offered VN.
Offered VN he declined.
PLAN Home no needs
== END 2025-09-07 14:59 | disposition home or self-care (01) | DRG 291 ==
LOC: 3 WEST ACU 21:13
PROVIDERS: Nurse Practitioner; ADMITTING PHYSICIAN Hospitalist; ATTENDING PHYSICIAN Hospitalist; EMERGENCY PHYSICIAN Emergency Medicine; FAMILY PHYSICIAN Physician Assistant Medical; OTHER PHYSICIAN Internal Medicine Cardiovascular Disease
DX: I11.0 Hypertensive heart disease with heart failure (principal); I50.33 Acute on chronic diastolic (congestive) heart failure; I48.19 Other persistent atrial fibrillation; I5A Non-ischemic myocardial injury (non-traumatic); M79.89 Other specified soft tissue disorders; I45.10 Unspecified right bundle-branch block; I51.3 Intracardiac thrombosis, not elsewhere classified; R06.03 Acute respiratory distress; I35.0 Nonrheumatic aortic (valve) stenosis; N40.0 Benign prostatic hyperplasia without lower urinary tract symptoms; Z87.891 Personal history of nicotine dependence; Z79.01 Long term (current) use of anticoagulants; Z79.84 Long term (current) use of oral hypoglycemic drugs
CPT/HCPCS: 71046; 80048; 80053; 83880; 84484; 85025; 93005; 99285

== ENCOUNTER 2025-09-24 07:39 | Day surgery (SDC) | payer OTHER, SELFPAY | END 2025-09-24 09:55 | disposition home or self-care (01) | LOC: CATH 07:39 | PROVIDERS: ATTENDING PHYSICIAN Internal Medicine Cardiovascular Disease; FAMILY PHYSICIAN Physician Assistant Medical; OTHER PHYSICIAN Internal Medicine Cardiovascular Disease | DX: I48.19 Other persistent atrial fibrillation (principal); I08.0 Rheumatic disorders of both mitral and aortic valves; I45.10 Unspecified right bundle-branch block; Z79.01 Long term (current) use of anticoagulants; I50.9 Heart failure, unspecified; I50.30 Unspecified diastolic (congestive) heart failure | CPT/HCPCS: 93312; 93320; 93325 ==